=== PATIENT | female | born 1945 | race Caucasian/White ===

== ENCOUNTER → 2016-09-05 | Outpatient (CLI) | payer MEDICARE, OTHER ==
--- OUTSIDE RECORDS SUMMARY | 2016-09-05 08:41 | XMS REPORT | Continuity of Care Document ---
Author Author [facility] Organization [facility] Address Unknown Phone Unavailable Allergies Active Description Code Type Severity Reaction Onset Reported/Identified Relationship to Patient Clinical Status Yes No Known Allergies No Known Allergies Drug Allergy Unknown N/A 01/29/2013 Yes No Known Drug Allergies [id number] Drug Allergy Unknown N/ A 02/25/2016 Medications Problems Date Dx Coded Attending Type Code Diagnosis Diagnosed By 09/26/2014 Ot 401.9 09/26/2014 Ot V76.12 11/07/2014 JENISE SCHAEFFER DOLINE S Ot 272.4 11/07/2014 ELIER SCHAEFFER DOQUELINE S Ot 414.01 11/07/2014 ELIER SCHAEFFER DOQUELINE S Ot 733.90 11/07/2014 CHELSEANDRADHA DO LUIS S Ot 780.79 11/07/2014 CHELSEANDRADHA DO LUIS S Ot V70.0 11/07/2014 LAURY MASSEY LUIS S Ot 401.9 11/07/2014 CHELSEANDRADHA DOELIERLUIS S Ot 414.00 11/07/2014 CHELSEANDRADHA DO LUIS S Ot 780.2 11/07/2014 Ot 401.9 11/07/2014 Ot V76.12 12/12/2014 LAURY MASSEY LUIS S Ot 241.1 12/12/2014 ELIER SCHAEFFER DOQUELINE S Ot 276.8 12/15/2014 LAURY MASSEY LUIS S Ot 241.1 12/22/2014 JOE BINGHAM LENS CUTTER Ot 241.1 12/25/2014 JOE BINGHAM LENS CUTTER Ot 241.1 07/24/2015 ELIER SCHAEFFER DOQUELINE S Ot E04.1 07/29/2015 ELIER SCHAEFFER DOQUELINE S Ot E04.1 02/25/2016 JENISE SCHAEFFER DOLINE S Ot Z12.31 ENCNTR SCREEN MAMMOGRAM FOR MALIGNANT NE 02/25/2016 ORENDER DO, LUIS S Ot E78.2 MIXED HYPERLIPIDEMIA 02/25/2016 ORENDER DO, LUIS S Ot Z12.31 ENCNTR SCREEN MAMMOGRAM FOR MALIGNANT NE 02/25/2016 ORENDER DO, LUIS S Ot E78.2 MIXED HYPERLIPIDEMIA 02/25/2016 ORENDER DO, LUIS S Ot Z12.31 ENCNTR SCREEN MAMMOGRAM FOR MALIGNANT NE 02/25/2016 ORENDER DO, LUIS S Ot E78.2 MIXED HYPERLIPIDEMIA 02/25/2016 ORENDER DO, LUIS S Ot Z12.31 ENCNTR SCREEN MAMMOGRAM FOR MALIGNANT NE 02/26/2016 ORENDER DO, LUIS S Ot E78.2 MIXED HYPERLIPIDEMIA 02/26/2016 ORENDER DO, LUIS S Ot Z12.31 ENCNTR SCREEN MAMMOGRAM FOR MALIGNANT NE 02/26/2016 ORENDER DO, LUIS S Ot E78.5 HYPERLIPIDEMIA, UNSPECIFIED 02/26/2016 ORENDER DO, LUIS S Ot I25.10 ATHSCL HEART DISEASE OF [place] CORONARY 02/26/2016 ORENDER DO, LUIS S Ot M50.30 OTHER CERVICAL DISC DEGENERATION, UNSP C 02/26/2016 ORENDER DO, LUIS S Ot R51 HEADACHE 02/26/2016 ORENDER DO, LUIS S Ot R53.83 OTHER FATIGUE 02/26/2016 ORENDER DO, LUIS S Ot R55 SYNCOPE AND COLLAPSE 02/26/2016 ORENDER DO, LUIS S Ot Z12.31 ENCNTR SCREEN MAMMOGRAM FOR MALIGNANT NE 03/22/2016 ORENDER DO, LUIS S Ot E78.5 HYPERLIPIDEMIA, UNSPECIFIED 03/22/2016 ORENDER DO, LUIS S Ot I25.10 ATHSCL HEART DISEASE OF [place] CORONARY 03/22/2016 ORENDER DO, LUIS S Ot M50.30 OTHER CERVICAL DISC DEGENERATION, UNSP C 03/22/2016 ORENDER DO, LUIS S Ot R51 HEADACHE 03/22/2016 ORENDER DO, LUIS S Ot R53.83 OTHER FATIGUE 03/22/2016 ORENDER DO, LUIS S Ot R55 SYNCOPE AND COLLAPSE 03/22/2016 ORENDER DO, LUIS S Ot Z12.31 ENCNTR SCREEN MAMMOGRAM FOR MALIGNANT NE 04/04/2016 ORENDER DO, LUIS S Ot E78.5 HYPERLIPIDEMIA, UNSPECIFIED 04/04/2016 ORENDER DO, LUIS S Ot I25.10 ATHSCL HEART DISEASE OF [place] CORONARY 04/04/2016 ORENDER DO, LUIS S Ot M50.30 OTHER CERVICAL DISC DEGENERATION, UNSP C 04/04/2016 ORENDER DO, LUIS S Ot R51 HEADACHE 04/04/2016 ORENDER DO, LUIS S Ot R53.83 OTHER FATIGUE 04/04/2016 ORENDER DO, LUIS S Ot R55 SYNCOPE AND COLLAPSE 04/04/2016 ORENDER DO, LUIS S Ot Z12.31 ENCNTR SCREEN MAMMOGRAM FOR MALIGNANT NE 04/04/2016 ORENDER DO, LUIS S Ot E78.5 HYPERLIPIDEMIA, UNSPECIFIED 04/04/2016 ORENDER DO, LUIS S Ot I25.10 ATHSCL HEART DISEASE OF [place] CORONARY 04/04/2016 ORENDER DO, LUIS S Ot M50.30 OTHER CERVICAL DISC DEGENERATION, UNSP C 04/04/2016 ORENDER DO, LUIS S Ot R51 HEADACHE 04/04/2016 ORENDER DO, LUIS S Ot R53.83 OTHER FATIGUE 04/04/2016 ORENDER DO, LUIS S Ot R55 SYNCOPE AND COLLAPSE 04/04/2016 ORENDER DO, LUIS S Ot Z12.31 ENCNTR SCREEN MAMMOGRAM FOR MALIGNANT NE 04/28/2016 LENORA SOLOMON PRIVACY DIRECTOR Ot R10.11 RIGHT UPPER QUADRANT PAIN 04/28/2016 LENORA SOLOMON PRIVACY DIRECTOR Ot R11.0 NAUSEA 04/28/2016 LENORA SOLOMON PRIVACY DIRECTOR Ot R19.7 DIARRHEA, UNSPECIFIED 05/05/2016 LENORA SOLOMON PRIVACY DIRECTOR Ot R10.11 RIGHT UPPER QUADRANT PAIN 05/05/2016 LENORA SOLOMON PRIVACY DIRECTOR Ot R19.5 OTHER FECAL ABNORMALITIES 05/05/2016 LENORA SOLOMON PRIVACY DIRECTOR Ot R10.11 RIGHT UPPER QUADRANT PAIN 05/05/2016 LENORA SOLOMON PRIVACY DIRECTOR Ot R19.5 OTHER FECAL ABNORMALITIES 05/17/2016 LENORA SOLOMON PRIVACY DIRECTOR Ot R10.11 RIGHT UPPER QUADRANT PAIN 05/17/2016 LENORA SOLOMON PRIVACY DIRECTOR Ot R11.0 NAUSEA 05/17/2016 LENORA SOLOMON PRIVACY DIRECTOR Ot R19.7 DIARRHEA, UNSPECIFIED 05/19/2016 LUIS SCHAEFFER DO Ot R19.7 DIARRHEA, UNSPECIFIED 05/24/2016 LENORA SOLOMON PRIVACY DIRECTOR Ot R10.11 RIGHT UPPER QUADRANT PAIN 05/24/2016 LENORA SOLOMON PRIVACY DIRECTOR Ot R19.5 OTHER FECAL ABNORMALITIES 06/08/2016 LUIS SCHAEFFER DO S Ot R19.7 DIARRHEA, UNSPECIFIED Procedures Results Test Result Range Complete blood count (CBC) with automated white blood cell (WBC) differential - 02/25/16 09:30 Blood leukocytes automated count (number/volume) 7.6 10*3/ uL 4.3-11.0 Blood erythrocytes automated count (number/volume) 4.95 10*6 /uL 4.35-5.85 Venous blood hemoglobin measurement (mass/volume) 15.2 g/dL 11.5-16.0 Blood hematocrit (volume fraction) 45 % 35-52 Automated erythrocyte mean corpuscular volume 90 [foz_us] 80-99 Automated erythrocyte mean corpuscular hemoglobin (mass per erythrocyte) 31 pg 25-34 Automated erythrocyte mean corpuscular hemoglobin concentration measurement ( mass/volume) 34 g/dL 32-36 Automated erythrocyte distribution width ratio 13.4 % 10.0-14.5 Automated blood platelet count (count/volume) 278 10*3/uL 130-400 Automated blood platelet mean volume measurement 9.5 [foz_us ] 7.4-10.4 Automated blood neutrophils/100 leukocytes 65 % 42-75 Automated blood lymphocytes/100 leukocytes 23 % 12-44 Blood monocytes/100 leukocytes 10 % 0-12 Automated blood eosinophils/100 leukocytes 2 % 0-10 Automated blood basophils/100 leukocytes 0 % 0-10 Blood neutrophils automated count (number/volume) 5.0 10*3 1.8-7.8 Blood lymphocytes automated count (number/volume) 1.8 10*3 1.0-4.0 Blood monocytes automated count (number/volume) 0.7 10*3 0.0-1.0 Automated eosinophil count 0.1 10*3/uL 0.0-0.3 Automated blood basophil count (count/volume) 0.0 10*3/uL 0.0-0.1 Comprehensive metabolic panel - 02/25/16 09:30 Serum or plasma sodium measurement (moles/volume) 140 mmol/ L 135-145 Serum or plasma potassium measurement (moles/volume) 4.9 mmol/L 3.6-5.0 Serum or plasma chloride measurement (moles/volume) 103 mmol /L 98-107 Carbon dioxide 27 mmol/L 21-32 Serum or plasma anion gap determination (moles/volume) 10 mmol/L 5-14 Serum or plasma urea nitrogen measurement (mass/volume) 23 mg/dL 7-18 Serum or plasma creatinine measurement (mass/volume) 0.77 mg /dL 0.60-1.30 Serum or plasma urea nitrogen/creatinine mass ratio 30 NRG Serum or plasma creatinine measurement with calculation of estimated glomerular filtration rate > NRG Serum or plasma glucose measurement (mass/volume) 90 mg/dL 70-105 Serum or plasma calcium measurement (mass/volume) 9.9 mg/dL 8.5-10.1 Serum or plasma total bilirubin measurement (mass/volume) 0.4 mg/dL 0.1-1.0 Serum or plasma alkaline phosphatase measurement (enzymatic activity/volume) 87 U/L 40-136 Serum or plasma aspartate aminotransferase measurement (enzymatic activity/ volume) 31 U/L 5-34 Serum or plasma alanine aminotransferase measurement (enzymatic activity/volume ) 27 U/L 0-55 Serum or plasma protein measurement (mass/volume) 7.5 g/dL 6.4-8.2 Serum or plasma albumin measurement (mass/volume) 4.5 g/dL 3.2-4.5 Erythrocyte sedimentation rate by westergren method - 02/25/16 09:30 Erythrocyte sedimentation rate by westergren method 8 mm 0-30 Lipid 1996 panel - 02/25/16 09:30 Serum or plasma triglyceride measurement (mass/volume) 190 mg/dL <150 Serum or plasma cholesterol measurement (mass/volume) 160 mg /dL < 200 Serum or plasma cholesterol in HDL measurement (mass/volume) 51 mg/dL 40-60 Cholesterol in LDL [mass/volume] in serum or plasma by direct assay 86 mg/dL 1-129 Serum or plasma cholesterol in VLDL measurement (mass/volume) 38 mg/dL 5-40 Hemoglobin A1c - 02/25/16 09:30 Hemoglobin A1c 5.3 % 4.5-6.2 THYROID STIMULATING HORMONE - 02/25/16 09:30 THYROID STIMULATING HORMONE 1.44 u[iU]/mL 0.35-4.94 Serum or plasma thyroxine (T4) free measurement (mass/volume) - 02/25/16 09:30 Serum or plasma thyroxine (T4) free measurement (mass/volume) 0.79 ng/dL 0.70-1.48 METABOLIC PANEL, BASIC - 03/29/16 13:10 POTASSIUM 3.7 mmol/L 3.5-5.3 EST GFR (MDRD) > 60 mL/min > 59 ANION GAP 6 mmol/L 5-15 EST CrCl (CG) > 60 mL/min > 59 GLUCOSE 83 mg/dL 70-99 CALCIUM 9.5 mg/dL 8.5-10.1 BLOOD UREA NITROGEN 16 mg/dL 7-20 CREATININE 0.8 mg/dL 0.6-1.0 SODIUM 140 mmol/L 135-148 CHLORIDE 103 mmol/L 98-110 CARBON DIOXIDE 31 mmol/L 21-32 MAGNESIUM - 03/29/16 13:10 MAGNESIUM 2.0 mg/dL 1.8-2.4 PROTHROMBIN TIME WITH INR - 03/29/16 13:10 INTERNATIONAL NORMAL RATIO 1.0 0.9-1.1 PROTHROMBIN TIME 11.5 sec 10.0-12.9 CBC W/DIFF - 03/29/16 13:10 EOSINOPHIL # 0.1 k/cumm 0.1-0.5 EOSINOPHIL % 1 % 2-4 GRANULOCYTE # 5.1 k/cumm 2.0-9.0 GRANULOCYTE % 63 % 50-75 LYMPHOCYTE # 2.1 k/cumm 1.0-4.0 LYMPHOCYTE % 26 % 20-30 MEAN CELL HGB 31.0 pg 27.0-33.0 MEAN CELL HGB CONCENTRATION 34.4 g/dL 32.0-37.0 MEAN CELL VOLUME 90.1 fl 80.0-100.0 MONOCYTE # 0.8 k/cumm 0.1-1.0 MONOCYTE % 10 % 4-6 RED BLOOD CELL 4.84 m/cumm 4.00-6.00 RED CELL DISTRIBUTION WIDTH 13.2 % 11.0- 15.6 WHITE BLOOD CELL 8.1 k/cumm 5.0-10.0 HEMOGLOBIN 15.0 gm/dL 12.0-16.0 HEMATOCRIT 43.6 % 37.0-47.0 PLATELET COUNT 282 k/cumm 150-450 LIPID PANEL - 03/30/16 05:24 CHOLESTEROL/HDL RATIO 2.5 < 5.0 LDL CHOLESTEROL 50 mg/dL < 100 VLDL CHOLESTEROL 16 mg/dL < 30 TRIGLYCERIDES 82 mg/dL < 150 CHOLESTEROL 110 mg/dL < 200 HDL CHOLESTEROL 44 mg/dL > 39 METABOLIC PANEL, BASIC - 03/30/16 05:24 POTASSIUM 3.7 mmol/L 3.5-5.3 EST GFR (MDRD) > 60 mL/min > 59 ANION GAP 7 mmol/L 5-15 EST CrCl (CG) > 60 mL/min > 59 GLUCOSE 98 mg/dL 70-99 CALCIUM 8.7 mg/dL 8.5-10.1 BLOOD UREA NITROGEN 14 mg/dL 7-20 CREATININE 0.8 mg/dL 0.6-1.0 SODIUM 141 mmol/L 135-148 CHLORIDE 105 mmol/L 98-110 CARBON DIOXIDE 29 mmol/L 21-32 CK MB - 03/30/16 05:24 CK MB 3.8 ng/mL < 4.0 TROPONIN I - 03/30/16 05:24 TROPONIN I 0.47 ng/mL < 0.07 CBC - 03/30/16 05:25 MEAN CELL HGB 30.7 pg 27.0-33.0 MEAN CELL HGB CONCENTRATION 33.4 g/dL 32.0-37.0 MEAN CELL VOLUME 91.8 fl 80.0-100.0 RED BLOOD CELL 4.40 m/cumm 4.00-6.00 RED CELL DISTRIBUTION WIDTH 13.2 % 11.0- 15.6 WHITE BLOOD CELL 6.8 k/cumm 5.0-10.0 HEMOGLOBIN 13.5 gm/dL 12.0-16.0 HEMATOCRIT 40.4 % 37.0-47.0 PLATELET COUNT 233 k/cumm 150-450 Serum or plasma amylase measurement (enzymatic activity/volume) - 05/04/16 14: 11 Serum or plasma amylase measurement (enzymatic activity/volume) 41 U/L 25-125 Lipase - 05/04/16 14:11 Lipase 6 U/L 8-78 Encounters ACCT No. Visit Date/Time Discharge Status Pt. Type Provider Facility Loc./Unit Complaint [id number] 11/20/2014 10:38:00 2014 23:59:59 CLS Outpatient JOE BINGHAM [facility] CARD [id number] 11/12/2014 12:37:00 2014 23:59:59 CLS Outpatient ORENDER DO, LUIS S [facility] RAD [id number] 11/07/2014 13:22:00 2014 23:59:59 CLS Outpatient ORENDER DO, LUIS S [facility] LAB [id number] 01/27/2014 06:37:00 2013 23:59:59 CLS Outpatient ORENDER DO, LUIS S [facility] LAB [id number] 02/16/2013 07:55:00 2012 23:59:59 CLS Outpatient ORENDER DO, LUIS S [facility] LAB [id number] 05/18/2016 12:12:00 ACT Outpatient ORENDER DO, LUIS S [facility] LAB DIARRHEA [id number] 05/04/2016 14:06:00 ACT Outpatient LENORA SOLOMON Jeaneth PRIVACY DIRECTOR [facility] LAB RUQ PAIN,CHANGE IN STOOL [id number] 04/27/2016 09:13:00 ACT Outpatient LENORA SOLOMON Jeaneth PRIVACY DIRECTOR [facility] RAD GENERALZAED ABD PAIN,RUQ PAIN,DIARRHEA [id number] 02/25/2016 08:54:00 ACT Outpatient ORENDER DO, LUIS S [facility] SYNCOPE,WEAKNESS,CAD,FATIGUE,HLP,SCREENING [id number] 07/10/2015 14:22:00 ACT Outpatient ORENDER DO, LUIS S [facility] RAD [id number] 07/06/2015 08:14:00 ACT Outpatient ORENDER DO, LUIS S [facility] LAB [id number] 09/05/2014 07:07:00 Document Registration
[2016-09-05 09:04] LABS: BASOPHILS % (AUTO) 0 % (0-10); EOSINOPHILS # (AUTO) 0.1 10^3/uL (0.0-0.3); EOSINOPHILS % (AUTO) 1 % (0-10); LYMPHOCYTES # (AUTO) 1.4 X 10^3 (1.0-4.0); LYMPHOCYTES % (AUTO) 21 % (12-44); MEAN CORPUSCULAR HEMOGLOBIN 30 PG (25-34); MEAN CORPUSCULAR HGB CONC 34 G/DL (32-36); MEAN CORPUSCULAR VOLUME 90 FL (80-99); MEAN PLATELET VOLUME 8.9 FL (7.4-10.4); MONOCYTES # (AUTO) 0.7 X 10^3 (0.0-1.0); MONOCYTES % (AUTO) 10 % (0-12); NEUTROPHILS # (AUTO) 4.6 X 10^3 (1.8-7.8); NEUTROPHILS % (AUTO) 67 % (42-75); PLATELET COUNT 282 10^3/uL (130-400); RED BLOOD COUNT 5.17 10^6/uL (4.35-5.85); RED CELL DISTRIBUTION WIDTH 13.6 % (10.0-14.5); WHITE BLOOD COUNT 6.8 10^3/uL (4.3-11.0)
[2016-09-05 09:21] LABS: ALANINE AMINOTRANSFERASE 23 U/L (0-55); ALBUMIN 4.2 G/DL (3.2-4.5); ANION GAP 10 MMOL/L (5-14); ASPARTATE AMINO TRANSFERASE 27 U/L (5-34); BILIRUBIN,TOTAL 0.4 MG/DL (0.1-1.0); BLOOD UREA NITROGEN 20 MG/DL (7-18); BUN/CREATININE RATIO 26; CALCIUM 9.3 MG/DL (8.5-10.1); CARBON DIOXIDE 26 MMOL/L (21-32); CHLORIDE 106 MMOL/L (98-107); CHOLESTEROL 152 MG/DL (< 200); CREATININE SERUM 0.76 MG/DL (0.60-1.30); DIRECT LDL 79 MG/DL (1-129); GFR ESTIMATED > 60; GLUCOSE 82 MG/DL (70-105); SODIUM 142 MMOL/L (135-145); TOTAL PROTEIN 7.2 G/DL (6.4-8.2); TRIGLYCERIDES 123 MG/DL (<150); VLDL CHOLESTEROL 25 MG/DL (5-40)
[2016-09-05 09:42] LABS: THYROID STIMULATING HORMONE 0.88 UIU/ML (0.35-4.94)
== END ==
LOC: LAB 08:35
PROVIDERS: ATTEND Nurse Practitioner
DX: I10 Essential (primary) hypertension (principal); R73.01 Impaired fasting glucose; E55.9 Vitamin D deficiency, unspecified; E78.2 Mixed hyperlipidemia
CPT/HCPCS: 36415; 80053; 80061; 82306; 83036; 84439; 84443; 85025

== ENCOUNTER → 2017-04-19 | Outpatient (CLI) | payer MEDICARE, OTHER ==
--- NOTE | 2017-04-20 19:58 | Diagnostic Imaging Report ---
Bilateral screening mammogram 2D views with tomosynthesis. The current study was also evaluated with a Computer Aided Detection (CAD) system. INDICATION: Screening. No current complaints stated on the questionnaire. COMPARISON: 02/25/16 FINDINGS: The breasts are composed of scattered fibroglandular densities. There are scattered benign-appearing calcifications. Allowing for technique and positional differences, no suspicious change is seen. IMPRESSION: No significant change. ACR BI-RADS Category 2: Benign findings. Result letter will be mailed to the patient. Note: At least 10% of breast cancer is not imaged by mammography. Dictated by: Dictated on workstation # [id number]
== END ==
LOC: RAD 10:59
PROVIDERS: ATTEND Family Medicine
DX: Z12.31 Encounter for screening mammogram for malignant neoplasm of breast (principal)
CPT/HCPCS: 77067

== ENCOUNTER → 2017-06-07 | Outpatient (CLI) | payer MEDICARE, OTHER ==
[2017-06-07 08:53] LABS: BASOPHILS % (AUTO) 0 % (0-10); EOSINOPHILS # (AUTO) 0.1 10^3/uL (0.0-0.3); EOSINOPHILS % (AUTO) 2 % (0-10); LYMPHOCYTES # (AUTO) 1.2 X 10^3 (1.0-4.0); LYMPHOCYTES % (AUTO) 16 % (12-44); MEAN CORPUSCULAR HEMOGLOBIN 31 PG (25-34); MEAN CORPUSCULAR HGB CONC 34 G/DL (32-36); MEAN CORPUSCULAR VOLUME 91 FL (80-99); MEAN PLATELET VOLUME 9.3 FL (7.4-10.4); MONOCYTES # (AUTO) 0.8 X 10^3 (0.0-1.0); MONOCYTES % (AUTO) 11 % (0-12); NEUTROPHILS # (AUTO) 5.3 X 10^3 (1.8-7.8); NEUTROPHILS % (AUTO) 72 % (42-75); PLATELET COUNT 294 10^3/uL (130-400); RED BLOOD COUNT 4.94 10^6/uL (4.35-5.85); RED CELL DISTRIBUTION WIDTH 13.2 % (10.0-14.5); WHITE BLOOD COUNT 7.4 10^3/uL (4.3-11.0)
[2017-06-07 09:12] LABS: ALANINE AMINOTRANSFERASE 23 U/L (0-55); ALBUMIN 4.2 GM/DL (3.2-4.5); ANION GAP 8 MMOL/L (5-14); ASPARTATE AMINO TRANSFERASE 23 U/L (5-34); BILIRUBIN,TOTAL 0.6 MG/DL (0.1-1.0); BLOOD UREA NITROGEN 21 MG/DL (7-18); BUN/CREATININE RATIO 27; CALCIUM 9.4 MG/DL (8.5-10.1); CARBON DIOXIDE 29 MMOL/L (21-32); CHLORIDE 103 MMOL/L (98-107); CHOLESTEROL 144 MG/DL (< 200); CREATININE SERUM 0.79 MG/DL (0.60-1.30); DIRECT LDL 67 MG/DL (1-129); GFR ESTIMATED > 60; GLUCOSE 86 MG/DL (70-105); SODIUM 140 MMOL/L (135-145); TOTAL PROTEIN 7.5 GM/DL (6.4-8.2); TRIGLYCERIDES 67 MG/DL (<150); VLDL CHOLESTEROL 13 MG/DL (5-40)
[2017-06-07 09:32] LABS: THYROID STIMULATING HORMONE 0.86 UIU/ML (0.35-4.94)
--- NOTE | 2017-06-07 15:49 | Diagnostic Imaging Report ---
PROCEDURE: US Thyroid. TECHNIQUE: Multiple real-time grayscale images were obtained of the thyroid in various projections. INDICATION: Thyroid nodules. FINDINGS: The previous thyroid ultrasound exam performed on 07/10/2015 noted multiple nodules in both lobes of the thyroid. On this study, the nodules are again identified and do not seem to have changed adversely. There has been no increase in size of any of the nodules and one of the nodules in the left upper lobe has decreased in size. The thyroid gland itself is not enlarged with the right lobe measuring 3.8 x 1.7 x 1.5 cm and the left lobe is estimated to be 3.4 x 1.2 x 1.1 cm(normal gland size 4-5 x 2 x 2 cm or less). IMPRESSION: 1. There are multiple nodules within both lobes of the thyroid. These nodules have not changed adversely since the prior exam and consequently they are most likely benign. 2. The thyroid gland is not enlarged. Dictated by: Dictated on workstation # [id number]
[2017-06-08 07:25] LABS: VITAMIN D 25-HYDROXY (TOTAL) 72 ng/mL (30-100)
== END ==
LOC: RAD 05-31 10:58
PROVIDERS: ATTEND Family Medicine
DX: E04.2 Nontoxic multinodular goiter (principal); R53.82 Chronic fatigue, unspecified; E55.9 Vitamin D deficiency, unspecified; I25.10 Atherosclerotic heart disease of native coronary artery without angina pectoris
CPT/HCPCS: 36415; 76536; 80053; 80061; 82306; 84443; 85025

== ENCOUNTER 2017-06-30 10:21 | Outpatient (RCR) | payer MEDICARE, OTHER | END 2017-07-25 16:12 | disposition home or self-care (01) | PROVIDERS: ATTEND Family Medicine | DX: M51.16 Intervertebral disc disorders with radiculopathy, lumbar region (principal) ==

== ENCOUNTER 2018-01-15 06:09 | Outpatient (CLI) | payer MEDICARE, OTHER ==
[~2018-01-15] VITALS: Ht 165.1 cm; Wt 72.6 kg
[2018-01-15] MEDS ORDERED: FLUO40CA12 PO (13:49)
[2018-01-15] MEDS ORDERED: POTA8TAB6 PO (13:49)
[2018-01-15] MEDS ORDERED: VALS1TAB80 PO (13:49)
[2018-01-15] MEDS ORDERED: MELA1TAB20 PO (13:49)
[2018-01-15] MEDS ORDERED: CHOL5000 PO (13:49)
[2018-01-15] MEDS ORDERED: CLOP75TA69 PO (13:49)
[2018-01-15] MEDS ORDERED: FAMO40TA6 PO (13:49)
[2018-01-15] MEDS ORDERED: TRAM50TA2 PO (13:49)
[2018-01-15] MEDS ORDERED: ASPI-586 PO (13:49)
[2018-01-15] MEDS ORDERED: ATOR10TA66 PO (13:49)
[2018-01-19] MEDS ORDERED: PANT40TA3 PO (09:33)
== END 2018-01-15 14:54 ==
LOC: PREOP 06:09
PROVIDERS: ATTEND Internal Medicine
DX: Z01.818 Encounter for other preprocedural examination (principal); Z12.11 Encounter for screening for malignant neoplasm of colon; K21.9 Gastro-esophageal reflux disease without esophagitis

== ENCOUNTER 2018-01-19 07:14 | Day surgery (SDC) | payer MEDICARE, OTHER ==
--- NOTE | 2018-01-12 12:34 | HISTORY AND PHYSICAL ---
DATE OF SERVICE: PANENDOSCOPY HISTORY AND PHYSICAL HISTORY OF PRESENT ILLNESS: The patient is a 72-year-old white female referred by Dr. Moctezuma for screening colonoscopy. I performed colonoscopy on her a little over 10 years ago, at which time, she had one early hyperplastic polyp removed from the distal ascending colon with no other significant abnormalities. At that time, she was on aspirin and Plavix, I believe for some TIA related symptoms and was having reflux symptoms. She had what appeared to be aspirin related gastropathy on EGD evaluation. Aspirin was discontinued and Plavix was continued. She did well following that for quite some time. Two years ago, she reported stent placement, apparently a coronary, single, likely drug-eluting stent, although she was not sure. She is back on aspirin and Plavix and prophylactic famotidine 40 mg daily. She has had some recurrence of epigastric discomfort and reflux symptoms. She is taking antacids several times per week for breakthrough symptoms. She denies any weight change, bowel habit change, melena, bright red blood per rectum or dysphagia. She denies any problems with sore throat or chronic coughing issues. She has had no chest symptoms. Denies orthopnea, PND, pedal edema, chest pain, or dyspnea on exertion. PAST SURGICAL HISTORY: Significant for a C6-C7 fusion little over 10 years ago for which she required anterior and posterior repair. She had gastric stapling many years ago. Two C-sections, a surgery for bowel obstruction in 1995 and an appendectomy following her second for acute appendicitis. PAST MEDICAL HISTORY: Significant for hypertension, hyperlipidemia and coronary artery disease. MEDICATIONS ON ADMISSION: Include valsartan/HCT 320/25, fluoxetine 40 mg daily, potassium 8 mEq daily, Plavix 75 mg daily, 81 mg aspirin daily, atorvastatin 10 mg at bedtime, melatonin 10 mg at bedtime and vitamin D3 5000 units daily. She also takes tramadol 50 mg usually more often than q. 12 hours p.r.n. one in the morning, one in the evening. SOCIAL HISTORY: She is retired, with no past smoking history and no significant alcohol intake. FAMILY HISTORY: Mother had a history of diverticulitis, in her 90s. Father of natural causes in his 90s as well. PHYSICAL EXAMINATION: GENERAL: Reveals a well-appearing white female in no acute distress. VITAL SIGNS: Her weight is down significantly to 161 compared to her office weight 10 years ago at 195.8. Blood pressure is 110/60. HEENT: Unremarkable. She has a Mallampati class 3 oropharyngeal configuration. NECK: Revealed no JVD, adenopathy, or bruits. CHEST: Clear. CARDIOVASCULAR: Regular rate and rhythm without murmur, S3 or S4. ABDOMEN: Reveals well-healed midline abdominal scars with significant firmness over the scar. No evidence for keloids are noted. No mass or organomegaly is noted. The abdomen is flat, bowel sounds are positive and there is no pain to palpation. No bruits are noted. EXTREMITIES: Reveal no cyanosis, clubbing, or edema. ASSESSMENT: The patient was set up for diagnostic EGD due to recurrence of reflux symptoms and the need for aspirin and Plavix with significant increased risk for upper GI tract ulceration as well as a screening colonoscopy deemed to be of average risk. The patient did remember waking up and having some discomfort on a procedure 10 years ago, so we will consult anesthesia for Diprivan administration. Prep instructions with Suprep kit were given and a split dose the day before and questions were answered. The patient is to discontinue aspirin. She has to hold aspirin and Plavix after this Monday's dose and she is scheduled for the subsequent Monday01/19/2018. I thank you for the referral of this pleasant lady. Job ID: [id number] DocumentID: [id number] Dictated Date: 01/10/2018 18:32:04 Torch Operator Date: 01/10/2018 19:22:57 Dictated By: REX BECERRA MD
[~2018-01-19] VITALS: Ht 165.1 cm; Wt 72.6 kg
[~2018-01-19 07:14] MED LIST: ASPI-586 PO; ATOR10TA66 PO; CHOL5000 PO; CLOP75TA69 PO; FAMO40TA6 PO; FLUO40CA12 PO; MELA1TAB20 PO; POTA8TAB6 PO; TRAM50TA2 PO; VALS1TAB80 PO
--- OUTSIDE RECORDS SUMMARY | 2018-01-19 07:21 | XMS REPORT ---
Author Author CHARLENE ETIENNE Organization [facility] Address [address] [place] [address] Care Team Providers Care Fuel Management Handler Name Role Phone CHARLENE ETIENNE Unavailable PROBLEMS Unknown Problems ALLERGIES No Known Allergies ENCOUNTERS Encounter Location Date Diagnosis [facility] [address] [facility] [id number] [phone] Jul, Influenza-like illness R69 IMMUNIZATIONS No Known Immunizations SOCIAL HISTORY Never Assessed REASON FOR VISIT Cough, headache, body ache, fever JStrasserRN PLAN OF CARE Activity Details Follow Up prn Reason: VITAL SIGNS Weight 158.6 lbs 2017-07-20 Temperature 98.5 degrees Fahrenheit 2017-07-20 Heart Rate 80 bpm 2017-07-20 Respiratory Rate 20 2017-07-20 Blood pressure systolic 92 mmHg 2017-07-20 Blood pressure diastolic 60 mmHg 2017-07-20 MEDICATIONS Medication Instructions Dosage Frequency Start Date End Date Duration Status Tamiflu 75 MG Orally Twice a day 1 capsule 12h Jul, 5 day(s) Active RESULTS No Results PROCEDURES Procedure Date Ordered Result Body Site [facility] VISIT ESTABLISHED PATIENT Jul 20, 2017 INSTRUCTIONS MEDICATIONS ADMINISTERED No Known Medications
--- OUTSIDE RECORDS SUMMARY | 2018-01-19 07:22 | XMS REPORT | Continuity of Care Document ---
Author Author [facility] Organization [facility] Address Unknown Phone Unavailable Allergies Active Description Code Type Severity Reaction Onset Reported/Identified Relationship to Patient Clinical Status Yes No Known Allergies No Known Allergies Drug Allergy Unknown N/A 2012 Yes No Known Drug Allergies [id number] Drug Allergy Unknown N/A 02/25/2016 Medications There is no data. Problems Date Dx Coded Attending Type Code Diagnosis Diagnosed By 09/26/2014 Ot 401.9 09/26/2014 Ot V76.12 11/07/2014 JENISE MOCTEZUMA DOLINE S Ot 272.4 11/07/2014 ELIER MOCTEZUMA DOQUELINE S Ot 414.01 11/07/2014 CHELSEANDELIER GARCIA DOQUELINE S Ot 733.90 11/07/2014 CHELSEANDRADHA DO, AMPARO S Ot 780.79 11/07/2014 CHELSEANDRADHA DO, AMPARO S Ot V70.0 11/07/2014 CHELSEANDRADHA DO AMPARO S Ot 401.9 11/07/2014 CHELSEANDRADHA DO, AMPARO S Ot 414.00 11/07/2014 CHELSEANDRADHA DO, AMPARO S Ot 780.2 11/07/2014 Ot 401.9 11/07/2014 Ot V76.12 12/12/2014 CHELSEANDRADHA DOELIERAMPARO S Ot 241.1 12/12/2014 CHELSEANDRADHA DOELIERAMPARO S Ot 276.8 12/15/2014 CHELSEANDRADHA DO, AMPARO S Ot 241.1 12/22/2014 JOE BINGHAM QUALITY CONTROL Ot 241.1 12/25/2014 JOE BINGHAM QUALITY CONTROL Ot 241.1 07/24/2015 ELIER MOCTEZUMA DOQUELINE S Ot E04.1 07/29/2015 CHELSEANDELIER GARCIA DOQUELINE S Ot E04.1 02/25/2016 ELIER MOCTEZUMA DOQUELINE S Ot Z12.31 ENCNTR SCREEN MAMMOGRAM FOR MALIGNANT NE 02/25/2016 ORENDER DO, AMPARO S Ot E78.2 MIXED HYPERLIPIDEMIA 02/25/2016 ORENDER DO, AMPARO S Ot Z12.31 ENCNTR SCREEN MAMMOGRAM FOR MALIGNANT NE 02/25/2016 ORENDER DO, AMPARO S Ot E78.2 MIXED HYPERLIPIDEMIA 02/25/2016 ORENDER DO, AMPARO S Ot Z12.31 ENCNTR SCREEN MAMMOGRAM FOR MALIGNANT NE 02/25/2016 ORENDER DO, AMPARO S Ot E78.2 MIXED HYPERLIPIDEMIA 02/25/2016 ORENDER DO, AMPARO S Ot Z12.31 ENCNTR SCREEN MAMMOGRAM FOR MALIGNANT NE 02/26/2016 ORENDER DO, AMPARO S Ot E78.2 MIXED HYPERLIPIDEMIA 02/26/2016 ORENDER DO, AMPARO S Ot Z12.31 ENCNTR SCREEN MAMMOGRAM FOR MALIGNANT NE 02/26/2016 ORENDER DO, AMPARO S Ot E78.5 HYPERLIPIDEMIA, UNSPECIFIED 02/26/2016 ORENDER DO, AMPARO S Ot I25.10 ATHSCL HEART DISEASE OF [place] CORONARY 02/26/2016 ORENDER DO, AMPARO S Ot M50.30 OTHER CERVICAL DISC DEGENERATION, UNSP C 02/26/2016 ORENDER DO, AMPARO S Ot R51 HEADACHE 02/26/2016 ORENDER DO, AMPARO S Ot R53.83 OTHER FATIGUE 02/26/2016 ORENDER DO, AMPARO S Ot R55 SYNCOPE AND COLLAPSE 02/26/2016 ORENDER DO, AMPARO S Ot Z12.31 ENCNTR SCREEN MAMMOGRAM FOR MALIGNANT NE 03/22/2016 ORENDER DO, AMPARO S Ot E78.5 HYPERLIPIDEMIA, UNSPECIFIED 03/22/2016 ORENDER DO, AMPARO S Ot I25.10 ATHSCL HEART DISEASE OF [place] CORONARY 03/22/2016 ORENDER DO, AMPARO S Ot M50.30 OTHER CERVICAL DISC DEGENERATION, UNSP C 03/22/2016 ORENDER DO, AMPARO S Ot R51 HEADACHE 03/22/2016 ORENDER DO, AMPARO S Ot R53.83 OTHER FATIGUE 03/22/2016 ORENDER DO, AMPARO S Ot R55 SYNCOPE AND COLLAPSE 03/22/2016 ORENDER DO, AMPARO S Ot Z12.31 ENCNTR SCREEN MAMMOGRAM FOR MALIGNANT NE 04/04/2016 ORENDER DO, AMPARO S Ot E78.5 HYPERLIPIDEMIA, UNSPECIFIED 04/04/2016 ORENDER DO, AMPARO S Ot I25.10 ATHSCL HEART DISEASE OF [place] CORONARY 04/04/2016 ORENDER DO, AMPARO S Ot M50.30 OTHER CERVICAL DISC DEGENERATION, UNSP C 04/04/2016 ORENDER DO, AMPARO S Ot R51 HEADACHE 04/04/2016 ORENDER DO, AMPARO S Ot R53.83 OTHER FATIGUE 04/04/2016 ORENDER DO, AMPARO S Ot R55 SYNCOPE AND COLLAPSE 04/04/2016 ORENDER DO, AMPARO S Ot Z12.31 ENCNTR SCREEN MAMMOGRAM FOR MALIGNANT NE 04/04/2016 ORENDER DO, AMPARO S Ot E78.5 HYPERLIPIDEMIA, UNSPECIFIED 04/04/2016 ORENDER DO, AMPARO S Ot I25.10 ATHSCL HEART DISEASE OF [place] CORONARY 04/04/2016 ORENDER DO, AMPARO S Ot M50.30 OTHER CERVICAL DISC DEGENERATION, UNSP C 04/04/2016 ORENDER DO, AMPARO S Ot R51 HEADACHE 04/04/2016 ORENDER DO, AMPARO S Ot R53.83 OTHER FATIGUE 04/04/2016 ORENDER DO, AMPARO S Ot R55 SYNCOPE AND COLLAPSE 04/04/2016 ORENDER DO, AMPARO S Ot Z12.31 ENCNTR SCREEN MAMMOGRAM FOR MALIGNANT NE 04/28/2016 LENORA SOLOMON LOG LOADER Ot R10.11 RIGHT UPPER QUADRANT PAIN 04/28/2016 LENORA SOLOMON LOG LOADER Ot R11.0 NAUSEA 04/28/2016 LENORA SOLOMON LOG LOADER Ot R19.7 DIARRHEA, UNSPECIFIED 05/05/2016 LENORA SOLOMON LOG LOADER Ot R10.11 RIGHT UPPER QUADRANT PAIN 05/05/2016 LENORA SOLOMON LOG LOADER Ot R19.5 OTHER FECAL ABNORMALITIES 05/05/2016 LENORA SOLOMON LOG LOADER Ot R10.11 RIGHT UPPER QUADRANT PAIN 05/05/2016 LENORA SOLOMON LOG LOADER Ot R19.5 OTHER FECAL ABNORMALITIES 05/17/2016 LENORA SOLOMON LOG LOADER Ot R10.11 RIGHT UPPER QUADRANT PAIN 05/17/2016 LENORA SOLOMON LOG LOADER Ot R11.0 NAUSEA 05/17/2016 LENORA SOLOMON LOG LOADER Ot R19.7 DIARRHEA, UNSPECIFIED 05/19/2016 LAURY MASSEY AMPARO S Ot R19.7 DIARRHEA, UNSPECIFIED 05/24/2016 LENORA SOLOMON LOG LOADER Ot R10.11 RIGHT UPPER QUADRANT PAIN 05/24/2016 LENORA SOLOMON LOG LOADER Ot R19.5 OTHER FECAL ABNORMALITIES 06/08/2016 COLINJENISE GARCIA DOLINE S Ot R19.7 DIARRHEA, UNSPECIFIED 09/05/2016 JENISE MOCTEZUMA DOLINE S Ot 272.4 HYPERLIPIDEMIA NEC/NOS 09/05/2016 ELIER MOCTEZUMA DOQUELINE S Ot 414.01 CORONARY ATHEROSCLEROSIS OF [place] CORON 09/05/2016 JENISE MOCTEZUMA DOLINE S Ot 733.90 BONE CARTILAGE DIS NOS 09/05/2016 LAURY MASSEY AMPARO S Ot 780.79 OTH MALAISE FATIGUE 09/05/2016 ELIER MOCTEZUMA DOQUELINE S Ot V70.0 ROUTINE MEDICAL EXAM 09/05/2016 JENISE MOCTEZUMA DOLINE S Ot 401.9 HYPERTENSION NOS 09/05/2016 LAURY MASSEY AMPARO S Ot 414.00 CORON ATHEROSCLER NOS TYPE VESSEL, NATIV 09/05/2016 JENISE MOCTEZUMA DOLINE S Ot 780.2 SYNCOPE AND COLLAPSE 09/05/2016 Ot 401.9 HYPERTENSION NOS 09/05/2016 Ot V76.12 OTH SCREEN MAMMO-MALIGN NEOPLASM OF [place] 09/05/2016 ELIER MOCTEZUMA DOQUELINE S Ot 276.8 HYPOPOTASSEMIA 09/05/2016 JENISE MOCTEZUMA DOLINE S Ot 241.1 NONTOX MULTINODUL GOITER 09/05/2016 JOE BINGHAM Ot 241.1 NONTOX MULTINODUL GOITER 09/05/2016 JENISE MOCTEZUMA DOLINE S Ot E04.2 NONTOXIC MULTINODULAR GOITER 09/05/2016 ELIER MOCTEZUMA DOQUELINE S Ot I25.10 ATHSCL HEART DISEASE OF [place] CORONARY 09/05/2016 ORENDER DO, AMPARO S Ot K13.0 DISEASES OF LIPS 09/05/2016 ORENDER DO, AMPARO S Ot R53.83 OTHER FATIGUE 09/05/2016 CHELSEANDER DO, AMPARO S Ot E04.1 NONTOXIC SINGLE THYROID NODULE 09/05/2016 ORENDER DO, AMPARO S Ot E78.5 HYPERLIPIDEMIA, UNSPECIFIED 09/05/2016 ORENDER DO, AMPARO S Ot I25.10 ATHSCL HEART DISEASE OF [place] CORONARY 09/05/2016 ORENDER DO, AMPARO S Ot M50.30 OTHER CERVICAL DISC DEGENERATION, UNSP C 09/05/2016 ORENDER DO, AMPARO S Ot R51 HEADACHE 09/05/2016 ORENDER DO, AMPARO S Ot R53.83 OTHER FATIGUE 09/05/2016 CHELSEANDER DO, AMPARO S Ot R55 SYNCOPE AND COLLAPSE 09/05/2016 CHELSEANDER DO, AMPARO S Ot Z12.31 ENCNTR SCREEN MAMMOGRAM FOR MALIGNANT NE 09/05/2016 LENORA SOLOMON LOG LOADER Ot R10.11 RIGHT UPPER QUADRANT PAIN 09/05/2016 LENORA SOLOMON LOG LOADER Ot R11.0 NAUSEA 09/05/2016 LENORA SOLOMON LOG LOADER Ot R19.7 DIARRHEA, UNSPECIFIED 09/05/2016 LENORA SOLOMON LOG LOADER Ot R10.11 RIGHT UPPER QUADRANT PAIN 09/05/2016 LENORA SOLOMON LOG LOADER Ot R19.5 OTHER FECAL ABNORMALITIES 09/05/2016 CHELSEANDER DO AMPARO S Ot R19.7 DIARRHE[place], UNSPECIFIED 09/06/2016 LENORA SOLOMON LOG LOADER Ot E55.9 VITAMIN D DEFICIENCY, UNSPECIFIED 09/06/2016 LENORA SOLOMON LOG LOADER Ot E78.2 MIXED HYPERLIPIDEMIA 09/06/2016 LENORA SOLOMON LOG LOADER Ot I10 ESSENTIAL (PRIMARY) HYPERTENSION 09/06/2016 LENORA SOLOMON LOG LOADER Ot R73.01 IMPAIRED FASTING GLUCOSE 09/29/2016 LENORA SOLOMON LOG LOADER Ot E55.9 VITAMIN D DEFICIENCY, UNSPECIFIED 09/29/2016 LENORA SOLOMON LOG LOADER Ot E78.2 MIXED HYPERLIPIDEMIA 09/29/2016 NEHA, LENORA N LOG LOADER Ot I10 ESSENTIAL (PRIMARY) HYPERTENSION 09/29/2016 LENORA SOLOMON LOG LOADER Ot R73.01 IMPAIRED FASTING GLUCOSE 10/20/2016 LAURY MASSEY, AMPARO S Ot E78.5 HYPERLIPIDEMIA, UNSPECIFIED 10/20/2016 CHELSEANDRADHA MASSEY, AMPARO S Ot I25.10 ATHSCL HEART DISEASE OF [place] CORONARY 10/20/2016 LAURY MASSEY, AMPARO S Ot M50.30 OTHER CERVICAL DISC DEGENERATION, UNSP C 10/20/2016 CHELSEANDER , AMPARO S Ot R51 HEADACHE 10/20/2016 CHELSEANDER , AMPARO S Ot R53.83 OTHER FATIGUE 10/20/2016 CHELSEANDER , AMPARO S Ot R55 SYNCOPE AND COLLAPSE 10/20/2016 COLINER , AMPARO S Ot Z12.31 ENCNTR SCREEN MAMMOGRAM FOR MALIGNANT NE 04/12/2017 LAURY MASSEY AMPARO S Ot Z12.31 ENCNTR SCREEN MAMMOGRAM FOR MALIGNANT NE 04/12/2017 CHELSEANDER , AMPARO S Ot Z12.31 ENCNTR SCREEN MAMMOGRAM FOR MALIGNANT NE 04/13/2017 CHELSEANDER , AMPARO S Ot Z12.31 ENCNTR SCREEN MAMMOGRAM FOR MALIGNANT NE 04/13/2017 LAURY MASSEY, AMPARO S Ot 272.4 HYPERLIPIDEMIA NEC/NOS 04/13/2017 CHELSEANDRADHA MASSEY, AMPARO S Ot 414.01 CORONARY ATHEROSCLEROSIS OF [place] CORON 04/13/2017 LAURY MASSEY AMPARO S Ot 733.90 BONE CARTILAGE DIS NOS 04/13/2017 CHELSEANDER , AMPARO S Ot 780.79 OTH MALAISE FATIGUE 04/13/2017 CHELSEANDER , AMPARO S Ot V70.0 ROUTINE MEDICAL EXAM 04/13/2017 COLINER AMPARO S Ot 401.9 HYPERTENSION NOS 04/13/2017 CHELSEANDER DO, AMPARO S Ot 414.00 CORON ATHEROSCLER NOS TYPE VESSEL, NATIV 04/13/2017 CHELSEANDER AMPARO S Ot 780.2 SYNCOPE AND COLLAPSE 04/13/2017 Ot 401.9 HYPERTENSION NOS 04/13/2017 Ot V76.12 OTH SCREEN MAMMO-MALIGN NEOPLASM OF [place] 04/13/2017 ORENDER DO, AMPARO S Ot 276.8 HYPOPOTASSEMIA 04/13/2017 ORENDER DO, AMPARO S Ot 241.1 NONTOX MULTINODUL GOITER 04/13/2017 XENIASONI JOE Roque RAJIV Ot 241.1 NONTOX MULTINODUL GOITER 04/13/2017 ORENDER DO, AMPARO S Ot E04.2 NONTOXIC MULTINODULAR GOITER 04/13/2017 ORENDER DO, AMPARO S Ot I25.10 ATHSCL HEART DISEASE OF [place] CORONARY 04/13/2017 ORENDER DO, AMPARO S Ot K13.0 DISEASES OF LIPS 04/13/2017 ORENDER DO, AMPARO S Ot R53.83 OTHER FATIGUE 04/13/2017 CHELSEANDER DO, AMPARO S Ot E04.1 NONTOXIC SINGLE THYROID NODULE 04/13/2017 CHELSEANDER DO, AMPARO S Ot E78.5 HYPERLIPIDEMIA, UNSPECIFIED 04/13/2017 ORENDER DO, AMPARO S Ot I25.10 ATHSCL HEART DISEASE OF [place] CORONARY 04/13/2017 ORENDER DO, AMPARO S Ot M50.30 OTHER CERVICAL DISC DEGENERATION, UNSP C 04/13/2017 ORENDER DO, AMPARO S Ot R51 HEADACHE 04/13/2017 ORENDER DO, AMPARO S Ot R53.83 OTHER FATIGUE 04/13/2017 ORENDER DO, AMPARO S Ot R55 SYNCOPE AND COLLAPSE 04/13/2017 CHELSEANDER DO, AMPARO S Ot Z12.31 ENCNTR SCREEN MAMMOGRAM FOR MALIGNANT NE 04/13/2017 LENORA SOLOMON LOG LOADER Ot R10.11 RIGHT UPPER QUADRANT PAIN 04/13/2017 LENORA SOLOMON LOG LOADER Ot R11.0 NAUSEA 04/13/2017 LENORA SOLOMON APRN Ot R19.7 DIARRHEA, UNSPECIFIED 04/13/2017 LENORA SOLOMON LOG LOADER Ot R10.11 RIGHT UPPER QUADRANT PAIN 04/13/2017 LENORA SOLOMON LOG LOADER Ot R19.5 OTHER FECAL ABNORMALITIES 04/13/2017 CHELSEANDER DO, AMPARO S Ot R19.7 DIARRHEA, UNSPECIFIED 04/13/2017 LENORA SOLOMON LOG LOADER Ot E55.9 VITAMIN D DEFICIENCY, UNSPECIFIED 04/13/2017 LENORA SOLOMON LOG LOADER Ot E78.2 MIXED HYPERLIPIDEMIA 04/13/2017 LENORA SOLOMON LOG LOADER Ot I10 ESSENTIAL (PRIMARY) HYPERTENSION 04/13/2017 LENORA SOLOMON LOG LOADER Ot R73.01 IMPAIRED FASTING GLUCOSE 04/13/2017 CHELSEANDER DO, AMPARO S Ot Z12.31 ENCNTR SCREEN MAMMOGRAM FOR MALIGNANT NE 04/19/2017 ORENDER DO, AMPARO S Ot Z12.31 ENCNTR SCREEN MAMMOGRAM FOR MALIGNANT NE 04/19/2017 ORENDER DO, AMPARO S Ot Z12.31 ENCNTR SCREEN MAMMOGRAM FOR MALIGNANT NE 04/19/2017 ORENDER DO, AMPARO S Ot Z12.31 ENCNTR SCREEN MAMMOGRAM FOR MALIGNANT NE 04/19/2017 ORENDER DO, AMPARO S Ot Z12.31 ENCNTR SCREEN MAMMOGRAM FOR MALIGNANT NE 04/20/2017 ORENDER DO, AMPARO S Ot Z12.31 ENCNTR SCREEN MAMMOGRAM FOR MALIGNANT NE 05/11/2017 ORENDER DO, AMPARO S Ot Z12.31 ENCNTR SCREEN MAMMOGRAM FOR MALIGNANT NE 06/08/2017 CHELSEANDER DO, AMPARO S Ot E04.2 NONTOXIC MULTINODULAR GOITER 06/08/2017 CHELSEANDER DO, AMPARO S Ot E55.9 VITAMIN D DEFICIENCY, UNSPECIFIED 06/08/2017 CHELSEANDER DO, AMPARO S Ot I25.10 ATHSCL HEART DISEASE OF [place] CORONARY 06/08/2017 CHELSEANDER DO, AMPARO S Ot R53.82 CHRONIC FATIGUE, UNSPECIFIED 06/09/2017 CHELSEANDER DO, AMPARO S Ot M51.16 INTERVERTEBRAL DISC DISORDERS W RADICULO 06/28/2017 CHELSEANDER DO, AMPARO S Ot E04.2 NONTOXIC MULTINODULAR GOITER 06/28/2017 CHELSEANDER DOELIERAMPARO S Ot E55.9 VITAMIN D DEFICIENCY, UNSPECIFIED 06/28/2017 CHELSEANDER DO AMPARO S Ot I25.10 ATHSCL HEART DISEASE OF [place] CORONARY 06/28/2017 CHELSEANDER DO, AMPARO S Ot R53.82 CHRONIC FATIGUE, UNSPECIFIED 07/05/2017 ORENDER DO, AMPARO S Ot E04.2 NONTOXIC MULTINODULAR GOITER 07/05/2017 CHELSEANDER DO, AMPARO S Ot E55.9 VITAMIN D DEFICIENCY, UNSPECIFIED 07/05/2017 ORENDER DO, AMPARO S Ot I25.10 ATHSCL HEART DISEASE OF [place] CORONARY 07/05/2017 CHELSEANDER DO, AMPARO S Ot R53.82 CHRONIC FATIGUE, UNSPECIFIED 07/09/2017 ORENDER DO, AMPARO S Ot M51.16 INTERVERTEBRAL DISC DISORDERS W RADICULO 07/25/2017 ORENDER DO, AMPARO S Ot M51.16 INTERVERTEBRAL DISC DISORDERS W RADICULO 12/26/2017 ORENDER DO, AMPARO S Ot E55.9 VITAMIN D DEFICIENCY, UNSPECIFIED 12/26/2017 ORENDER DO, AMPARO S Ot E78.2 MIXED HYPERLIPIDEMIA 12/26/2017 ORENDER DO, AMPARO S Ot I10 ESSENTIAL (PRIMARY) HYPERTENSION 12/26/2017 ORENDER DO, AMPARO S Ot I25.10 ATHSCL HEART DISEASE OF [place] CORONARY 12/26/2017 CHELSEANDER DO, AMPARO S Ot E55.9 VITAMIN D DEFICIENCY, UNSPECIFIED 12/26/2017 ORENDER DO, AMPARO S Ot E78.2 MIXED HYPERLIPIDEMIA 12/26/2017 ORENDER DO, AMPARO S Ot I10 ESSENTIAL (PRIMARY) HYPERTENSION 12/26/2017 ORENDER DO, AMPARO S Ot I25.10 ATHSCL HEART DISEASE OF [place] CORONARY 01/15/2018 CHELSEANDER DO, AMPARO S Ot E55.9 VITAMIN D DEFICIENCY, UNSPECIFIED 01/15/2018 ORENDER DO, AMPARO S Ot E78.2 MIXED HYPERLIPIDEMIA 01/15/2018 ORENDER DO, AMPARO S Ot I10 ESSENTIAL (PRIMARY) HYPERTENSION 01/15/2018 ORENDER DO, AMPARO S Ot I25.10 ATHSCL HEART DISEASE OF [place] CORONARY 01/16/2018 MARIAM HERNADEZ, REX Jackson Ot K21.9 GASTRO-ESOPHAGEAL REFLUX DISEASE WITHOUT 01/16/2018 REX BECERRA MD Ot Z01.818 ENCOUNTER FOR OTHER PREPROCEDURAL EXAMIN 01/16/2018 REX BECERRA MD Ot Z12.11 ENCOUNTER FOR SCREENING FOR MALIGNANT NE Procedures There is no data. Results Test Result Range Complete blood count (CBC) with automated white blood cell (WBC) differential - 02/25/16 09:30 Blood leukocytes automated count (number/volume) 7.6 10*3/uL 4.3-11.0 Blood erythrocytes automated count (number/volume) 4.95 10*6/uL 4.35-5.85 Venous blood hemoglobin measurement (mass/volume) 15.2 [...] Automated blood platelet mean volume measurement 9.5 [foz_us] 7.4-10.4 Automated blood neutrophils/100 leukocytes 65 % [...] Serum or plasma sodium measurement (moles/volume) 140 mmol/L 135-145 Serum or plasma potassium measurement (moles/volume) 4.9 mmol/L 3.6-5.0 Serum or plasma chloride measurement (moles/volume) 103 mmol/L 98-107 Carbon dioxide 27 mmol/L 21-32 Serum or plasma anion gap determination (moles/volume) 10 mmol/L 5-14 Serum or plasma urea nitrogen measurement (mass/volume) 23 mg/dL 7-18 Serum or plasma creatinine measurement (mass/volume) 0.77 mg/dL 0.60-1.30 Serum or plasma urea nitrogen/creatinine mass [...] Serum or plasma cholesterol measurement (mass/volume) 160 mg/dL < 200 Serum or plasma cholesterol in HDL measurement (mass/volume) 51 mg/ dL 40-60 Cholesterol in LDL [mass/volume] in serum or plasma by direct assay 86 mg/dL 1-129 Serum or plasma cholesterol in VLDL measurement (mass/volume) 38 mg/ dL 5-40 Hemoglobin A1c - 02/25/16 09:30 Hemoglobin [...] 4.00-6.00 RED CELL DISTRIBUTION WIDTH 13.2 % 11.0-15.6 WHITE BLOOD CELL 8.1 k/cumm 5.0-10.0 HEMOGLOBIN [...] 4.00-6.00 RED CELL DISTRIBUTION WIDTH 13.2 % 11.0-15.6 WHITE BLOOD CELL 6.8 k/cumm 5.0-10.0 HEMOGLOBIN 13.5 gm/dL 12.0-16.0 HEMATOCRIT 40.4 % 37.0-47.0 PLATELET COUNT 233 k/cumm 150-450 Serum or plasma amylase measurement (enzymatic activity/volume) - 05/04/16 14: 11 Serum or plasma amylase measurement (enzymatic activity/volume) 41 U /L 25-125 Lipase - 05/04/16 14:11 Lipase 6 U/L 8-78 Complete blood count (CBC) with automated white blood cell (WBC) differential - 09/05/16 08:53 Blood leukocytes automated count (number/volume) 6.8 10*3/uL 4.3-11.0 Blood erythrocytes automated count (number/volume) 5.17 10*6/uL 4.35-5.85 Venous blood hemoglobin measurement (mass/volume) 15.6 g/dL 11.5-16.0 Blood hematocrit (volume fraction) 46 % 35-52 Automated erythrocyte mean corpuscular volume 90 [foz_us] 80-99 Automated erythrocyte mean corpuscular hemoglobin (mass per erythrocyte) 30 pg 25-34 Automated erythrocyte mean corpuscular hemoglobin concentration measurement ( mass/volume) 34 g/dL 32-36 Automated erythrocyte distribution width ratio 13.6 % 10.0-14.5 Automated blood platelet count (count/volume) 282 10*3/uL 130-400 Automated blood platelet mean volume measurement 8.9 [foz_us] 7.4-10.4 Automated blood neutrophils/100 leukocytes 67 % 42-75 Automated blood lymphocytes/100 leukocytes 21 % 12-44 Blood monocytes/100 leukocytes 10 % 0-12 Automated blood eosinophils/100 leukocytes 1 % 0-10 Automated blood basophils/100 leukocytes 0 % 0-10 Blood neutrophils automated count (number/volume) 4.6 10*3 1.8-7.8 Blood lymphocytes automated count (number/volume) 1.4 10*3 1.0-4.0 Blood monocytes automated count (number/volume) 0.7 10*3 0.0-1.0 Automated eosinophil count 0.1 10*3/uL 0.0-0.3 Automated blood basophil count (count/volume) 0.0 10*3/uL 0.0-0.1 Comprehensive metabolic panel - 09/05/16 08:53 Serum or plasma sodium measurement (moles/volume) 142 mmol/L 135-145 Serum or plasma potassium measurement (moles/volume) 4.0 mmol/L 3.6-5.0 Serum or plasma chloride measurement (moles/volume) 106 mmol/L 98-107 Carbon dioxide 26 mmol/L 21-32 Serum or plasma anion gap determination (moles/volume) 10 mmol/L 5-14 Serum or plasma urea nitrogen measurement (mass/volume) 20 mg/dL 7-18 Serum or plasma creatinine measurement (mass/volume) 0.76 mg/dL 0.60-1.30 Serum or plasma urea nitrogen/creatinine mass ratio 26 NRG Serum or plasma creatinine measurement with calculation of estimated glomerular filtration rate > NRG Serum or plasma glucose measurement (mass/volume) 82 mg/dL 70-105 Serum or plasma calcium measurement (mass/volume) 9.3 mg/dL 8.5-10.1 Serum or plasma total bilirubin measurement (mass/volume) 0.4 mg/dL 0.1-1.0 Serum or plasma alkaline phosphatase measurement (enzymatic activity/volume) 89 U/L 40-136 Serum or plasma aspartate aminotransferase measurement (enzymatic activity/ volume) 27 U/L 5-34 Serum or plasma alanine aminotransferase measurement (enzymatic activity/volume ) 23 U/L 0-55 Serum or plasma protein measurement (mass/volume) 7.2 g/dL 6.4-8.2 Serum or plasma albumin measurement (mass/volume) 4.2 g/dL 3.2-4.5 Lipid 1996 panel - 09/05/16 08:53 Serum or plasma triglyceride measurement (mass/volume) 123 mg/dL <150 Serum or plasma cholesterol measurement (mass/volume) 152 mg/dL < 200 Serum or plasma cholesterol in HDL measurement (mass/volume) 53 mg/ dL 40-60 Cholesterol in LDL [mass/volume] in serum or plasma by direct assay 79 mg/dL 1-129 Serum or plasma cholesterol in VLDL measurement (mass/volume) 25 mg/ dL 5-40 Hemoglobin A1c - 09/05/16 08:53 Hemoglobin A1c 5.6 % 4.5-6.2 THYROID STIMULATING HORMONE - 09/05/16 08:53 THYROID STIMULATING HORMONE 0.88 u[iU]/mL 0.35-4.94 Serum or plasma thyroxine (T4) free measurement (mass/volume) - 09/05/16 08:53 Serum or plasma thyroxine (T4) free measurement (mass/volume) 0.86 ng/dL 0.70-1.48 25-hydroxyvitamin D measurement - 09/05/16 08:53 25-hydroxy vitamin D measurement 25 % 30-100 Complete blood count (CBC) with automated white blood cell (WBC) differential - 06/07/17 08:49 Blood leukocytes automated count (number/volume) 7.4 10*3/uL 4.3-11.0 Blood erythrocytes automated count (number/volume) 4.94 10*6/uL 4.35-5.85 Venous blood hemoglobin measurement (mass/volume) 15.1 g/dL 11.5-16.0 Blood hematocrit (volume fraction) 45 % 35-52 Automated erythrocyte mean corpuscular volume 91 [foz_us] 80-99 Automated erythrocyte mean corpuscular hemoglobin (mass per erythrocyte) 31 pg 25-34 Automated erythrocyte mean corpuscular hemoglobin concentration measurement ( mass/volume) 34 g/dL 32-36 Automated erythrocyte distribution width ratio 13.2 % 10.0-14.5 Automated blood platelet count (count/volume) 294 10*3/uL 130-400 Automated blood platelet mean volume measurement 9.3 [foz_us] 7.4-10.4 Automated blood neutrophils/100 leukocytes 72 % 42-75 Automated blood lymphocytes/100 leukocytes 16 % 12-44 Blood monocytes/100 leukocytes 11 % 0-12 Automated blood eosinophils/100 leukocytes 2 % 0-10 Automated blood basophils/100 leukocytes 0 % 0-10 Blood neutrophils automated count (number/volume) 5.3 10*3 1.8-7.8 Blood lymphocytes automated count (number/volume) 1.2 10*3 1.0-4.0 Blood monocytes automated count (number/volume) 0.8 10*3 0.0-1.0 Automated eosinophil count 0.1 10*3/uL 0.0-0.3 Automated blood basophil count (count/volume) 0.0 10*3/uL 0.0-0.1 Comprehensive metabolic panel - 06/07/17 08:49 Serum or plasma sodium measurement (moles/volume) 140 mmol/L 135-145 Serum or plasma potassium measurement (moles/volume) 4.0 mmol/L 3.6-5.0 Serum or plasma chloride measurement (moles/volume) 103 mmol/L 98-107 Carbon dioxide 29 mmol/L 21-32 Serum or plasma anion gap determination (moles/volume) 8 mmol/L 5-14 Serum or plasma urea nitrogen measurement (mass/volume) 21 mg/dL 7-18 Serum or plasma creatinine measurement (mass/volume) 0.79 mg/dL 0.60-1.30 Serum or plasma urea nitrogen/creatinine mass ratio 27 NRG Serum or plasma creatinine measurement with calculation of estimated glomerular filtration rate > NRG Serum or plasma glucose measurement (mass/volume) 86 mg/dL 70-105 Serum or plasma calcium measurement (mass/volume) 9.4 mg/dL 8.5-10.1 Serum or plasma total bilirubin measurement (mass/volume) 0.6 mg/dL 0.1-1.0 Serum or plasma alkaline phosphatase measurement (enzymatic activity/volume) 100 U/L 40-136 Serum or plasma aspartate aminotransferase measurement (enzymatic activity/ volume) 23 U/L 5-34 Serum or plasma alanine aminotransferase measurement (enzymatic activity/volume ) 23 U/L 0-55 Serum or plasma protein measurement (mass/volume) 7.5 g/dL 6.4-8.2 Serum or plasma albumin measurement (mass/volume) 4.2 g/dL 3.2-4.5 Lipid 1996 panel - 06/07/17 08:49 Serum or plasma triglyceride measurement (mass/volume) 67 mg/dL <150 Serum or plasma cholesterol measurement (mass/volume) 144 mg/dL < 200 Serum or plasma cholesterol in HDL measurement (mass/volume) 59 mg/ dL 40-60 Cholesterol in LDL [mass/volume] in serum or plasma by direct assay 67 mg/dL 1-129 Serum or plasma cholesterol in VLDL measurement (mass/volume) 13 mg/ dL 5-40 THYROID STIMULATING HORMONE - 06/07/17 08:49 THYROID STIMULATING HORMONE 0.86 u[iU]/mL 0.35-4.94 VITAMIN D FRACTIONATED D2 D3 - 06/07/17 08:49 25-hydroxy vitamin D measurement 70.34 % 30.00-100.00 Serum or plasma cholecalciferol (vitamin D3) measurement (mass/volume) 70.34 % NRG Serum or plasma 25-hydroxycalciferol measurement (mass/volume) < % NRG 25-hydroxyvitamin D measurement - 06/07/17 08:49 25-hydroxy vitamin D measurement 72 % 30-100 Comprehensive metabolic panel - 12/24/17 09:34 Serum or plasma sodium measurement (moles/volume) 140 mmol/L 135-145 Serum or plasma potassium measurement (moles/volume) 3.9 mmol/L 3.6-5.0 Serum or plasma chloride measurement (moles/volume) 103 mmol/L 98-107 Carbon dioxide 28 mmol/L 21-32 Serum or plasma anion gap determination (moles/volume) 9 mmol/L 5-14 Serum or plasma urea nitrogen measurement (mass/volume) 22 mg/dL 7-18 Serum or plasma creatinine measurement (mass/volume) 0.75 mg/dL 0.60-1.30 Serum or plasma urea nitrogen/creatinine mass ratio 29 NRG Serum or plasma creatinine measurement with calculation of estimated glomerular filtration rate > NRG Serum or plasma glucose measurement (mass/volume) 87 mg/dL 70-105 Serum or plasma calcium measurement (mass/volume) 10.0 mg/dL 8.5-10.1 Serum or plasma total bilirubin measurement (mass/volume) 0.5 mg/dL 0.1-1.0 Serum or plasma alkaline phosphatase measurement (enzymatic activity/volume) 85 U/L 40-136 Serum or plasma aspartate aminotransferase measurement (enzymatic activity/ volume) 24 U/L 5-34 Serum or plasma alanine aminotransferase measurement (enzymatic activity/volume ) 21 U/L 0-55 Serum or plasma protein measurement (mass/volume) 7.3 g/dL 6.4-8.2 Serum or plasma albumin measurement (mass/volume) 4.5 g/dL 3.2-4.5 Lipid 1996 panel - 12/24/17 09:34 Serum or plasma triglyceride measurement (mass/volume) 113 mg/dL <150 Serum or plasma cholesterol measurement (mass/volume) 144 mg/dL < 200 Serum or plasma cholesterol in HDL measurement (mass/volume) 55 mg/ dL 40-60 Cholesterol in LDL [mass/volume] in serum or plasma by direct assay 72 mg/dL 1-129 Serum or plasma cholesterol in VLDL measurement (mass/volume) 23 mg/ dL 5-40 THYROID STIMULATING HORMONE - 12/24/17 09:34 THYROID STIMULATING HORMONE 1.05 u[iU]/mL 0.35-4.94 Serum or plasma thyroxine (T4) free measurement (mass/volume) - 12/24/17 09:34 Serum or plasma thyroxine (T4) free measurement (mass/volume) 0.93 ng/dL 0.70-1.48 VITAMIN D 25-HYDROXY - 12/24/17 09:34 VITAMIN D 25-HYDROXY (TOTAL) 76.6 % 30.0-100.0 Encounters ACCT No. Visit Date/Time Discharge Status Pt. Type Provider Facility Loc./Unit Complaint [id number] 03/29/2016 12:28:00 03/30/2016 08:47:00 DIS Outpatient Dagoberto HERNADEZ, Rex Paniagua [facility] E.CVLO [id number] 03/22/2016 08:04:00 03/22/2016 08:04:00 DIS Outpatient Mike HERNADEZ, Blaine Elam [facility] E.RAC [id number] 07/20/2017 09:10:00 07/20/2017 23:59:59 CLS Out[facility] [id number] 01/15/2018 06:09:00 01/15/2018 14:54:00 DIS Outpatient MARIAM HERNADEZ, REX [facility] PREOP COLONOSCOPY/EGD [id number] 12/24/2017 09:10:00 12/24/2017 23:59:59 CLS Outpatient LAURY MASSEY AMPARO S [facility] LAB E78.2,17.0,125.10 [id number] 06/30/2017 10:21:00 07/25/2017 16:12:00 DIS Outpatient CHELSEAWILLAMAMPARO GARCIA DO S [facility] REHAB LUMBAR DEG DISC DISEASE; R LEG SCIATICA [id number] 06/07/2017 08:31:00 06/07/2017 23:59:59 CLS Outpatient CHELSEAWILLAMAMPARO GARCIA DO S [facility] RAD BILATERAL THRYOID NODULES [id number] 04/19/2017 10:59:00 04/19/2017 23:59:59 CLS Outpatient LAURY AMPARO MASSEY S [facility] RAD 3D MAMMO SCREENING [id number] 09/05/2016 08:35:00 09/05/2016 23:59:59 CLS Outpatient LENORA SOLOMON LOG LOADER [facility] LAB ESSENTIAL HYPERTENSION,MIXED HYPERLIPIDEMIA [id number] 05/18/2016 12:12:00 05/18/2016 23:59:59 CLS Outpatient CHELSEARADHA AMPARO MASSEY S [facility] LAB DIARRHEA [id number] 05/04/2016 14:06:00 05/04/2016 23:59:59 CLS Outpatient LENORA SOLOMON [employer] LOADER [facility] LAB RUQ PAIN,CHANGE IN STOOL [id number] 04/27/2016 09:13:00 04/27/2016 23:59:59 CLS Outpatient LENORA SOLOMON [employer] LO[employer]ER [facility] RAD GENERALZAED ABD PAIN, RUQ PAIN,DIARRHEA [id number] 02/25/2016 08:54:00 02/25/2016 23:59:59 CLS Outpatient CHELSEAWILLAMAMPARO GARCIA DO S [facility] RAD SYNCOPE,WEAKNESS, CAD,FATIGUE,HLP,SCREENING [id number] 07/10/2015 14:22:00 07/10/2015 23:59:59 CLS Outpatient AMPARO MOCTEZUMA DO S [facility] RAD THYROID NODULES [id number] 07/06/2015 08:14:00 07/06/2015 23:59:59 CLS Outpatient AMPARO MOCTEZUMA DO S [facility] LAB THYROID NODULES,CAD ,FATIGUE [id number] 11/20/2014 10:38:00 11/20/2014 23:59:59 CLS Outpatient JOE BINGHAMP [facility] CARD MULTI NODULAR THYROID [id number] 11/12/2014 12:37:00 11/12/2014 23:59:59 CLS Outpatient AMPARO MOCTEZUMA DO S [facility] RAD THYROID NODULES [id number] 11/07/2014 13:22:00 11/07/2014 23:59:59 CLS Outpatient AMPARO MOCTEZUMA DO S [facility] LAB HYPOKALCEMIA [id number] 01/27/2014 06:37:00 01/27/2014 23:59:59 CLS Outpatient AMPARO MOCTEZUMA DO S [facility] LAB YEARLY LABS,HLP,CAD ,FATIGUE,OSETOPENIA [id number] 02/16/2013 07:55:00 02/16/2013 23:59:59 CLS Outpatient AMPARO MOCTEZUMA DO S [facility] LAB HYPERTENSION HEART DISEASE SYNCOPE AND COLLAPSE [id number] 01/19/2018 09:30:00 PEN PreadREX Hair MD [facility] ENDO SCREEENING/GERD [id number] 09/05/2014 07:07:00 Document Registration 08/06/13 12/26/2017 15:06:01 12/26/2017 23:59:59 CLS Outpatient Amparo Moctezuma.
[2018-01-19] MEDS ORDERED: LACTATED RINGERS 1,000 ML IV STA (07:28)
[2018-01-19] MEDS ORDERED: LACTATED RINGERS 1,000 ML IV ONE (07:30)
[2018-01-19] MEDS ORDERED: HURRICAINE EXT TUBE (BENZOCAINE) XX PRN (07:30)
[2018-01-19 07:46] VITALS: BP 148/74
--- NOTE | 2018-01-19 07:59 | Pre-Op Note & Conscious Sedat ---
Pre-Operative Progress Note H&P Reviewed The H&P was reviewed, patient examined and no changes noted. Date H&P Reviewed: Jan 19, 2018 Time H&P Reviewed: 07:59 Conscious Sedation Pre-Proced ASA Class: 2 Airway Mallampati Classification: ([place] appropriate class) I. II. III, IV Lungs Heart ASA score ASA 1: a normal healthy patient ASA 2: a patient with a mild systemic disease (mid diabetes, controlled hypertension, obesity ASA 3: a patient with a severe systemic disease that limits activity (angina , COPD, prior Myocardial infarction) ASA 4: a patient with an incapacitating disease that is a constant threat to life (CHF, renal failure) ASA 5: a moribund patient not expected to survive 24 hrs. (ruptured aneurysm) ASA 6: a declared brain patient whose organs are being harvested. For emergent operations, add the letter E after the classification Grade 3 Sedation Plan: Analgesia, Amnesia, Plan communicated to team members, Discussed options with patient/fam, Discussed risks with patient/fam Note The patient is an appropriate candidate to undergo the planned procedure, sedation, and anesthesia. The patient immediately re-assessed prior to indication. REX BECERRA MD Jan 19, 2018 07:59
[2018-01-19] MEDS ORDERED: PROPOFOL INJECTION 50 ML IV ONE (08:06)
[2018-01-19] MEDS ORDERED: MIDAZOLAM 2 MG/2 ML (VERSED) VIAL ONE (08:07)
[2018-01-19 09:20] VITALS: BP 141/89
[2018-01-19] MEDS ORDERED: ONDANSETRON 4 MG/2 ML (SDV) Z0FRAN ONE (09:26)
[2018-01-19] MEDS ORDERED: ONDANSETRON 4 MG/2 ML (SDV) Z0FRAN IVP ONE (09:30)
[2018-01-19] MEDS ORDERED: PANT40TA3 PO (09:33)
[2018-01-19 09:45] VITALS: BP 151/95
--- NOTE | 2018-01-19 18:41 | OPERATIVE REPORT ---
DATE OF SERVICE: COLONOSCOPY SUMMARY INDICATION FOR THE PROCEDURE: Colonoscopy is performed for screening purposes. The patient also underwent EGD evaluation due to increasing reflux symptoms and epigastric pain with sensation of dysphagia. The patient was placed in left lateral decubitus position. Prior to undergoing colonoscopy, digital rectal evaluation was performed. There were no abnormalities noted to digital inspection of the anal canal or rectal vault. The colonoscope was then inserted into the rectum under direct visualization and advanced to the cecum. The cecum was identified by identification of the ileocecal valve and cecal strap. Photographic documentation was obtained. Careful inspection was made as the colonoscope was withdrawn. FINDINGS: The rectum was unremarkable on visual inspection. There are a few small diverticula noted in the proximal sigmoid colon, which was otherwise unremarkable. The descending colon, splenic flexure, transverse colon and hepatic flexure were unremarkable. There is a diminutive 2 mm polyp noted in the mid ascending colon, which was photographed and biopsied and ablated with no subsequent blood loss. The remainder of the ascending colon and cecum were unremarkable. ASSESSMENT: 1. Minimal diverticular disease in the form of 2 small proximal sigmoid diverticula but were present without evidence of diverticulitis. 2. One diminutive polyp was removed from the mid ascending colon. This is otherwise normal colonoscopy of the cecum. We would advocate consideration for repeat screening colonoscopy in 10 years, but only if she is deemed to be in excellent health. We then proceeded with EGD evaluation. The endoscope was inserted into the oral cavity under direct visualization and the esophagus was intubated. The endoscope was passed down the esophagus through the stomach and second portion of the duodenum. A careful inspection was made as the endoscope was withdrawn. FINDINGS: Posterior hypopharynx, epiglottis, arytenoid aperture, true and false vocal folds were unremarkable with visual inspection. Proximal and mid esophagus were unremarkable. There is a small sliding hiatal hernia present with LA grade B erosive esophagitis. There is no evidence for stricture formation and no visual evidence to suggest Lloyd's change. Two biopsies were obtained from the GE junction. There is evidence for intact gastric stapling with about a 6 ounce sized pouch involving the cardia of the stomach. There is a marginal ulceration that appeared shallow at the level of gastric stapling. It was biopsied and not indurated with tissue being submitted for histopathology. The fundus, antrum, pylorus, pyloric channel, duodenal bulb and second portion of the duodenum were unremarkable. ASSESSMENT: 1. The patient did have erosive esophagitis, LA grade B in severity without evidence for stricture formation or overt evidence for Lloyd's change. Biopsies are pending. 2. Marginal ulceration at the level of this patient's intact gastric stapling was present without overt evidence for stricture formation. A biopsy was obtained and submitted for histopathology. We will have the patient return in 6 to 8 weeks for repeat surveillance EGD. Currently, the patient has been on Pepcid 40 mg at bedtime, especially in light of the fact now that she is on aspirin and Plavix. I took the liberty of initiating pantoprazole 40 mg to take each morning. She will likely need indefinite proton pump inhibitor therapy. I thank you for the referral of this pleasant lady. Job ID: [id number] DocumentID: [id number] Dictated Date: 01/19/2018 12:40:31 Bead Wrapper Date: 01/19/2018 18:40:40 Dictated By: REX BECERRA MD MTDD
== END 2018-01-19 11:00 | disposition home or self-care (01) ==
LOC: ENDO 07:14
PROVIDERS: ATTEND Internal Medicine
DX: Z12.11 Encounter for screening for malignant neoplasm of colon (principal); K63.5 Polyp of colon; K57.30 Diverticulosis of large intestine without perforation or abscess without bleeding; K22.10 Ulcer of esophagus without bleeding; K25.9 Gastric ulcer, unspecified as acute or chronic, without hemorrhage or perforation; I25.10 Atherosclerotic heart disease of native coronary artery without angina pectoris; I10 Essential (primary) hypertension; Z79.02 Long term (current) use of antithrombotics/antiplatelets; Z79.82 Long term (current) use of aspirin; Z95.5 Presence of coronary angioplasty implant and graft

== ENCOUNTER 2018-03-15 05:40 | Outpatient (CLI) | payer MEDICARE, OTHER ==
[~2018-03-15] VITALS: Ht 165.1 cm; Wt 72.6 kg
[~2018-03-15 05:40] MED LIST changes: +PANT40TA3 PO
[2018-03-16] MEDS ORDERED: PANT40TA3 PO (11:28)
== END 2018-03-15 11:08 | disposition home or self-care (01) ==
LOC: PREOP 05:40
PROVIDERS: ATTEND Internal Medicine
DX: Z01.818 Encounter for other preprocedural examination (principal)

== ENCOUNTER 2018-03-16 08:12 | Day surgery (SDC) | payer MEDICARE, OTHER ==
--- NOTE | 2018-03-15 15:39 | HISTORY AND PHYSICAL ---
DATE OF SERVICE: HISTORY OF PRESENT ILLNESS: The patient is a 72-year-old white female undergoing surveillance EGD for followup of gastric ulceration. She had a marginal-appearing ulceration proximal to a gastric stapling in the cardia of the stomach. She also had LA grade B erosive esophagitis. She is also on aspirin and Plavix at the time that she takes for past history of TIAs as I recall. She apparently had one drug-eluting stent placed a little over 2 years ago. Her aspirin was discontinued and she has continued Plavix as well as pantoprazole. She has recently switched back to 40 mg of famotidine. She does have some heartburn during the day. She takes famotidine at night, but has noted no dysphagia and has had no melena or bright red blood per rectum. She has had no TIA symptoms. PAST MEDICAL HISTORY: Significant for hypertension in addition to her TIAs. PAST SURGICAL HISTORY: She had C6-C7 fusion over 10 years ago requiring anterior and posterior repair. She had gastric stapling many years ago for obesity, has had 2 C-sections and a surgery for lysis of adhesions for small-bowel obstruction in 1995 and an appendectomy followed this. Past medical history also significant for hyperlipidemia. PHYSICAL EXAMINATION: GENERAL: Reveals a pleasant white female. Normal skin coloration, in no acute distress. VITAL SIGNS: Blood pressure 114/74, weight 165.2 pounds which is up 4 pounds from 2 months ago. Heart rate 72 and regular. HEENT: Sclerae nonicteric. No pallor is noted. CHEST: Clear to auscultation. CARDIOVASCULAR: Reveals regular rate and rhythm without murmur, S3 or S4. ABDOMEN: Soft, supple. Multiple well-healed surgical scars. No mass or organomegaly noted. No distention is noted. Bowel sounds are positive. EXTREMITIES: Reveal no cyanosis, clubbing or edema. ASSESSMENT: The patient is set up for surveillance EGD for gastric ulceration followup on 03/16/2018. She is to abstain from aspirin and Plavix in the interim. Job ID: [id number] DocumentID: [id number] Dictated Date: 03/14/2018 16:30:18 Combat Engineer Date: 03/14/2018 16:58:59 Dictated By: REX BECERRA MD
--- OUTSIDE RECORDS SUMMARY | 2018-03-16 08:17 | XMS REPORT | Continuity of Care Document ---
Author Author [facility] Organization [facility] Address Unknown Phone Unavailable Allergies Active Description Code Type Severity Reaction Onset Reported/Identified Relationship to Patient Clinical Status Yes No Known Allergies No Known Allergies Drug Allergy Unknown N/A 2012 Yes No Known Drug Allergies [id number] Drug Allergy Unknown N/A 02/25/2016 Medications There [...] Ot 401.9 11/07/2014 Ot V76.12 12/12/2014 CHELSEANDRADHA DO AMPARO S Ot 241.1 12/12/2014 CHELSEANDRADHA DOELIERAMPARO S Ot 276.8 12/15/2014 CHELSEANDRADHA DO, AMPARO S Ot 241.1 12/22/2014 JOE BINGHAM INSTRUCTOR BRIDGE Ot 241.1 12/25/2014 JOE BINGHAM INSTRUCTOR BRIDGE Ot 241.1 07/24/2015 ELIER MOCTEZUMA DOQUELINE S [...] S Ot I25.10 ATHSCL HEART DISEASE OF [place] CORONARY 02/26/2016 ORENDER DO, AMPARO S Ot [...] S Ot I25.10 ATHSCL HEART DISEASE OF [place] CORONARY 03/22/2016 ORENDER DO, AMPARO S Ot [...] S Ot I25.10 ATHSCL HEART DISEASE OF [place] CORONARY 04/04/2016 ORENDER DO, AMPARO S Ot [...] S Ot I25.10 ATHSCL HEART DISEASE OF [place] CORONARY 04/04/2016 ORENDER DO, AMPARO S Ot M50.30 OTHER CERVICAL DISC DEGENERATION, UNSP C 04/04/2016 ORENDER DO, AMPARO S Ot R51 HEADACHE 04/04/2016 ORENDER DO, AMPARO S Ot R53.83 OTHER FATIGUE 04/04/2016 ORENDER DO, AMPARO S Ot R55 SYNCOPE AND COLLAPSE 04/04/2016 ORENDER DO, AMPARO S Ot Z12.31 ENCNTR SCREEN MAMMOGRAM FOR MALIGNANT NE 04/28/2016 LENORA SOLOMON MAT INSPECTOR Ot R10.11 RIGHT UPPER QUADRANT PAIN 04/28/2016 LENORA SOLOMON MAT INSPECTOR Ot R11.0 NAUSEA 04/28/2016 LENORA SOLOMON MAT INSPECTOR Ot R19.7 DIARRHEA, UNSPECIFIED 05/05/2016 LENORA SOLOMON MAT INSPECTOR Ot R10.11 RIGHT UPPER QUADRANT PAIN 05/05/2016 LENORA SOLOMON MAT INSPECTOR Ot R19.5 OTHER FECAL ABNORMALITIES 05/05/2016 LENORA SOLOMON MAT INSPECTOR Ot R10.11 RIGHT UPPER QUADRANT PAIN 05/05/2016 LENORA SOLOMON MAT INSPECTOR Ot R19.5 OTHER FECAL ABNORMALITIES 05/17/2016 LENORA SOLOMON MAT INSPECTOR Ot R10.11 RIGHT UPPER QUADRANT PAIN 05/17/2016 LENORA SOLOMON MAT INSPECTOR Ot R11.0 NAUSEA 05/17/2016 LENORA SOLOMON MAT INSPECTOR Ot R19.7 DIARRHEA, UNSPECIFIED 05/19/2016 LAURY MASSEY AMPARO S Ot R19.7 DIARRHEA, UNSPECIFIED 05/24/2016 LENORA SOLOMON MAT INSPECTOR Ot R10.11 RIGHT UPPER QUADRANT PAIN 05/24/2016 LENORA SOLOMON MAT INSPECTOR Ot R19.5 OTHER FECAL ABNORMALITIES 06/08/2016 COLINJENISE GARCIA DOLINE S Ot R19.7 DIARRHEA, UNSPECIFIED 09/05/2016 JENISE MOCTEZUMA DOLINE S Ot 272.4 HYPERLIPIDEMIA NEC/NOS 09/05/2016 ELIER MOCTEZUMA DOQUELINE S Ot 414.01 CORONARY ATHEROSCLEROSIS OF [place] CORON 09/05/2016 JENISE MOCTEZUMA DOLINE S Ot [...] S Ot I25.10 ATHSCL HEART DISEASE OF [place] CORONARY 09/05/2016 ORENDER DO, AMPARO S Ot K13.0 DISEASES OF LIPS 09/05/2016 ORENDER DO, AMPARO S Ot R53.83 OTHER FATIGUE 09/05/2016 CHELSEANDER DO, AMPARO S Ot E04.1 NONTOXIC SINGLE THYROID NODULE 09/05/2016 ORENDER DO, AMPARO S Ot E78.5 HYPERLIPIDEMIA, UNSPECIFIED 09/05/2016 ORENDER DO, AMPARO S Ot I25.10 ATHSCL HEART DISEASE OF [place] CORONARY 09/05/2016 ORENDER DO, AMPARO S Ot M50.30 OTHER CERVICAL DISC DEGENERATION, UNSP C 09/05/2016 ORENDER DO, AMPARO S Ot R51 HEADACHE 09/05/2016 ORENDER DO, AMPARO S Ot R53.83 OTHER FATIGUE 09/05/2016 CHELSEANDER DO, AMPARO S Ot R55 SYNCOPE AND COLLAPSE 09/05/2016 CHELSEANDER DO, AMPARO S Ot Z12.31 ENCNTR SCREEN MAMMOGRAM FOR MALIGNANT NE 09/05/2016 LENORA SOLOMON MAT INSPECTOR Ot R10.11 RIGHT UPPER QUADRANT PAIN 09/05/2016 LENORA SOLOMON MAT INSPECTOR Ot R11.0 NAUSEA 09/05/2016 LENORA SOLOMON MAT INSPECTOR Ot R19.7 DIARRHEA, UNSPECIFIED 09/05/2016 LENORA SOLOMON MAT INSPECTOR Ot R10.11 RIGHT UPPER QUADRANT PAIN 09/05/2016 LENORA SOLOMON MAT INSPECTOR Ot R19.5 OTHER FECAL ABNORMALITIES 09/05/2016 CHELSEANDER DO AMPARO S Ot R19.7 DIARRHEA, UNSPECIFIED 09/06/2016 LENORA SOLOMON MAT INSPECTOR Ot E55.9 VITAMIN D DEFICIENCY, UNSPECIFIED 09/06/2016 LENORA SOLOMON MAT INSPECTOR Ot E78.2 MIXED HYPERLIPIDEMIA 09/06/2016 LENORA SOLOMON MAT INSPECTOR Ot I10 ESSENTIAL (PRIMARY) HYPERTENSION 09/06/2016 LENORA SOLOMON MAT INSPECTOR Ot R73.01 IMPAIRED FASTING GLUCOSE 09/29/2016 LENORA SOLOMON MAT INSPECTOR Ot E55.9 VITAMIN D DEFICIENCY, UNSPECIFIED 09/29/2016 LENORA SOLOMON MAT INSPECTOR Ot E78.2 MIXED HYPERLIPIDEMIA 09/29/2016 NEHA, LENORA N MAT INSPECTOR Ot I10 ESSENTIAL (PRIMARY) HYPERTENSION 09/29/2016 LENORA SOLOMON MAT INSPECTOR Ot R73.01 IMPAIRED FASTING GLUCOSE 10/20/2016 LAURY MASSEY, AMPARO S Ot E78.5 HYPERLIPIDEMIA, UNSPECIFIED 10/20/2016 CHELSEANDRADHA MASSEY, AMPARO S Ot I25.10 ATHSCL HEART DISEASE OF [place] CORONARY 10/20/2016 LAURY MASSEY, AMPARO S Ot [...] AMPARO S Ot 414.01 CORONARY ATHEROSCLEROSIS OF [place] CORON 04/13/2017 LAURY MASSEY AMPARO S Ot [...] MAMMO-MALIGN NEOPLASM OF [place] 04/13/2017 ORENDER DO, APMARO S Ot 276.8 HYPOPOTASSEMIA 04/13/2017 ORENDER DO, AMPARO S Ot 241.1 NONTOX MULTINODUL GOITER 04/13/2017 XENIASONI JOE Roque RAJIV Ot 241.1 NONTOX MULTINODUL GOITER 04/13/2017 ORENDER DO, AMPARO S Ot E04.2 NONTOXIC MULTINODULAR GOITER 04/13/2017 ORENDER DO, AMPARO S Ot I25.10 ATHSCL HEART DISEASE OF [place] CORONARY 04/13/2017 ORENDER DO, AMPARO S Ot K13.0 DISEASES OF LIPS 04/13/2017 ORENDER DO, AMPARO S Ot R53.83 OTHER FATIGUE 04/13/2017 CHELSEANDER DO, AMPARO S Ot E04.1 NONTOXIC SINGLE THYROID NODULE 04/13/2017 CHELSEANDER DO, AMPARO S Ot E78.5 HYPERLIPIDEMIA, UNSPECIFIED 04/13/2017 ORENDER DO, AMPARO S Ot I25.10 ATHSCL HEART DISEASE OF [place] CORONARY 04/13/2017 ORENDER DO, AMPARO S Ot M50.30 OTHER CERVICAL DISC DEGENERATION, UNSP C 04/13/2017 ORENDER DO, AMPARO S Ot R51 HEADACHE 04/13/2017 ORENDER DO, AMPARO S Ot R53.83 OTHER FATIGUE 04/13/2017 ORENDER DO, AMPARO S Ot R55 SYNCOPE AND COLLAPSE 04/13/2017 CHELSEANDER DO, AMPARO S Ot Z12.31 ENCNTR SCREEN MAMMOGRAM FOR MALIGNANT NE 04/13/2017 LENORA SOLOMON MAT INSPECTOR Ot R10.11 RIGHT UPPER QUADRANT PAIN 04/13/2017 LENORA SOLOMON MAT INSPECTOR Ot R11.0 NAUSEA 04/13/2017 LENORA SOLOMON APRN Ot R19.7 DIARRHEA, UNSPECIFIED 04/13/2017 LENORA SOLOMON MAT INSPECTOR Ot R10.11 RIGHT UPPER QUADRANT PAIN 04/13/2017 LENORA SOLOMON MAT INSPECTOR Ot R19.5 OTHER FECAL ABNORMALITIES 04/13/2017 CHELSEANDER DO, AMPARO S Ot R19.7 DIARRHEA, UNSPECIFIED 04/13/2017 LENORA SOLOMON MAT INSPECTOR Ot E55.9 VITAMIN D DEFICIENCY, UNSPECIFIED 04/13/2017 LENORA SOLOMON MAT INSPECTOR Ot E78.2 MIXED HYPERLIPIDEMIA 04/13/2017 LENORA SOLOMON MAT INSPECTOR Ot I10 ESSENTIAL (PRIMARY) HYPERTENSION 04/13/2017 LENORA SOLOMON MAT INSPECTOR Ot R73.01 IMPAIRED FASTING GLUCOSE 04/13/2017 CHELSEANDER [...] S Ot I25.10 ATHSCL HEART DISEASE OF [place] CORONARY 06/08/2017 CHELSEANDER DO, AMPARO S Ot R53.82 CHRONIC FATIGUE, UNSPECIFIED 06/09/2017 CHELSEANDER DO, AMPARO S Ot M51.16 INTERVERTEBRAL DISC DISORDERS W RADICULO 06/28/2017 CHELSEANDER DO, AMPARO S Ot E04.2 NONTOXIC MULTINODULAR GOITER 06/28/2017 CHELSEANDER DOELIERAMPARO S Ot E55.9 VITAMIN D DEFICIENCY, UNSPECIFIED 06/28/2017 CHELSEANDER DO AMPARO S Ot I25.10 ATHSCL HEART DISEASE OF [place] CORONARY 06/28/2017 CHELSEANDER DO, AMPARO S Ot R53.82 CHRONIC FATIGUE, UNSPECIFIED 07/05/2017 ORENDER DO, AMPARO S Ot E04.2 NONTOXIC MULTINODULAR GOITER 07/05/2017 ORENDER DO, AMPARO S Ot E55.9 VITAMIN D DEFICIENCY, UNSPECIFIED 07/05/2017 ORENDER DO, AMPARO S Ot I25.10 ATHSCL HEART DISEASE OF [place] CORONARY 07/05/2017 CHELSEANDER DO, AMPARO S Ot R53.82 CHRONIC FATIGUE, UNSPECIFIED 07/09/2017 ORENDER DO, AMPARO S Ot M51.16 INTERVERTEBRAL DISC DISORDERS W RADICULO 07/25/2017 ORENDER DO, AMPARO S Ot M51.16 INTERVERTEBRAL DISC DISORDERS W RADICULO 12/26/2017 ORENDER DO, AMPARO S Ot E55.9 VITAMIN D DEFICIENCY, UNSPECIFIED 12/26/2017 ORENDER DO, AMPARO S Ot E78.2 MIXED HYPERLIPIDEMIA 12/26/2017 ORENDER DO, AMPAOR S Ot I10 ESSENTIAL (PRIMARY) HYPERTENSION 12/26/2017 ORENDER DO, AMPARO S Ot I25.10 ATHSCL HEART DISEASE OF [place] CORONARY 12/26/2017 CHELSEANDER DO, AMPARO S Ot E55.9 VITAMIN D DEFICIENCY, UNSPECIFIED 12/26/2017 ORENDER DO, AMPARO S Ot E78.2 MIXED HYPERLIPIDEMIA 12/26/2017 ORENDER DO, AMPARO S Ot I10 ESSENTIAL (PRIMARY) HYPERTENSION 12/26/2017 ORENDER DO, AMPARO S Ot I25.10 ATHSCL HEART DISEASE OF [place] CORONARY 01/15/2018 CHELSEANDER DO, AMPARO S Ot E55.9 VITAMIN D DEFICIENCY, UNSPECIFIED 01/15/2018 ORENDER DO, AMPARO S Ot E78.2 MIXED HYPERLIPIDEMIA 01/15/2018 ORENDER DO, AMPARO S Ot I10 ESSENTIAL (PRIMARY) HYPERTENSION 01/15/2018 ORENDER DO, AMPARO S Ot I25.10 ATHSCL HEART DISEASE OF [place] CORONARY 01/15/2018 MARIAM HERNADEZ, REX Jackson Ot K21.9 GASTRO-ESOPHAGEAL REFLUX DISEASE WITHOUT 01/15/2018 MARIAM HERNADEZ, REX Jackson Ot Z01.818 ENCOUNTER FOR OTHER PREPROCEDURAL EXAMIN 01/15/2018 REX BECERRA MD Ot Z12.11 ENCOUNTER FOR SCREENING FOR MALIGNANT NE 01/16/2018 MARIAM HERNADEZ, REX Jackson Ot K21.9 GASTRO-ESOPHAGEAL REFLUX DISEASE WITHOUT 01/16/2018 MARIAM HERNADEZ, REX Jackson Ot Z01.818 ENCOUNTER FOR OTHER PREPROCEDURAL EXAMIN 01/16/2018 MARIAM HERNADEZ, REX Jackson Ot Z12.11 ENCOUNTER FOR SCREENING FOR MALIGNANT NE 01/19/2018 CHELSEANDER DO, AMPARO S Ot 272.4 HYPERLIPIDEMIA NEC/NOS 01/19/2018 CHELSEANDER DO, AMPARO S Ot 414.01 CORONARY ATHEROSCLEROSIS OF [place] CORON 01/19/2018 CHELSEANDER DO, AMPARO S Ot 733.90 BONE CARTILAGE DIS NOS 01/19/2018 CHELSEANDER DO, AMPARO S Ot 780.79 OTH MALAISE FATIGUE 01/19/2018 CHELSEANDER DO, AMPARO S Ot V70.0 ROUTINE MEDICAL EXAM 01/19/2018 CHELSEANDER DO AMPARO S Ot 401.9 HYPERTENSION NOS 01/19/2018 CHELSEANDER DO, AMPARO S Ot 414.00 CORON ATHEROSCLER NOS TYPE VESSEL, NATIV 01/19/2018 CHELSEANDER DO, AMPARO S Ot 780.2 SYNCOPE AND COLLAPSE 01/19/2018 Ot 401.9 HYPERTENSION NOS 01/19/2018 Ot V76.12 OTH SCREEN MAMMO-MALIGN NEOPLASM OF [place] 01/19/2018 CHELSEANDER DO, AMPARO S Ot 276.8 HYPOPOTASSEMIA 01/19/2018 CHELSEANDER DO, AMPARO S Ot 241.1 NONTOX MULTINODUL GOITER 01/19/2018 JOE BINGHAM Ot 241.1 NONTOX MULTINODUL GOITER 01/19/2018 CHELSEANDER DO, AMPARO S Ot E04.2 NONTOXIC MULTINODULAR GOITER 01/19/2018 CHELSEANDER DO, AMPARO S Ot I25.10 ATHSCL HEART DISEASE OF [place] CORONARY 01/19/2018 CHELSEANDER DO, AMPARO S Ot K13.0 DISEASES OF LIPS 01/19/2018 CHELSEANDER DO, AMPARO S Ot R53.83 OTHER FATIGUE 01/19/2018 CHELSEANDER DO, AMPARO S Ot E04.1 NONTOXIC SINGLE THYROID NODULE 01/19/2018 CHELSEANDER DO, AMPARO S Ot E78.5 HYPERLIPIDEMIA, UNSPECIFIED 01/19/2018 ORENDER DO, AMPARO S Ot I25.10 ATHSCL HEART DISEASE OF [place] CORONARY 01/19/2018 ORENDER DO, AMPARO S Ot M50.30 OTHER CERVICAL DISC DEGENERATION, UNSP C 01/19/2018 ORENDER DO, AMPARO S Ot R51 HEADACHE 01/19/2018 ORENDER DO, AMPARO S Ot R53.83 OTHER FATIGUE 01/19/2018 ORENDER DO, AMPARO S Ot R55 SYNCOPE AND COLLAPSE 01/19/2018 ORENDER DO, AMPARO S Ot Z12.31 ENCNTR SCREEN MAMMOGRAM FOR MALIGNANT NE 01/19/2018 LENORA SOLOMON MAT INSPECTOR Ot R10.11 RIGHT UPPER QUADRANT PAIN 01/19/2018 LENORA SOLOMON MAT INSPECTOR Ot R11.0 NAUSEA 01/19/2018 LENORA SOLOMON MAT INSPECTOR Ot R19.7 DIARRHEA, UNSPECIFIED 01/19/2018 LENORA SOLOMON MAT INSPECTOR Ot R10.11 RIGHT UPPER QUADRANT PAIN 01/19/2018 LENORA SOLOMON MAT INSPECTOR Ot R19.5 OTHER FECAL ABNORMALITIES 01/19/2018 CHELSEANDER DO, AMPARO S Ot R19.7 DIARRHEA, UNSPECIFIED 01/19/2018 LENORA SOLOMON MAT INSPECTOR Ot E55.9 VITAMIN D DEFICIENCY, UNSPECIFIED 01/19/2018 LENORA SOLOMON MAT INSPECTOR Ot E78.2 MIXED HYPERLIPIDEMIA 01/19/2018 LENORA SOLOMON MAT INSPECTOR Ot I10 ESSENTIAL (PRIMARY) HYPERTENSION 01/19/2018 LENORA SOLOMON MAT INSPECTOR Ot R73.01 IMPAIRED FASTING GLUCOSE 01/19/2018 CHELSEANDER DO, AMPARO S Ot Z12.31 ENCNTR SCREEN MAMMOGRAM FOR MALIGNANT NE 01/19/2018 CHELSEANDER DO, AMPARO S Ot E04.2 NONTOXIC MULTINODULAR GOITER 01/19/2018 ORENDER DO, AMPARO S Ot E55.9 VITAMIN D DEFICIENCY, UNSPECIFIED 01/19/2018 ORENDER DO, AMPARO S Ot I25.10 ATHSCL HEART DISEASE OF [place] CORONARY 01/19/2018 ORENDER DO, AMPARO S Ot R53.82 CHRONIC FATIGUE, UNSPECIFIED 01/19/2018 ORENDER DO, AMPARO S Ot E55.9 VITAMIN D DEFICIENCY, UNSPECIFIED 01/19/2018 ORENDER DO, AMPARO S Ot E78.2 MIXED HYPERLIPIDEMIA 01/19/2018 ORENDER DO, AMPARO S Ot I10 ESSENTIAL (PRIMARY) HYPERTENSION 01/19/2018 ORENDER DO, AMPARO S Ot I25.10 ATHSCL HEART DISEASE OF [place] CORONARY 01/19/2018 REX BECERRA MD Ot I10 ESSENTIAL (PRIMARY) HYPERTENSION 01/19/2018 REX BECERRA MD Ot I25.10 ATHSCL HEART DISEASE OF [place] CORONARY 01/19/2018 REX BECERRA MD Ot K22.10 ULCER OF ESOPHAGUS WITHOUT BLEEDING 01/19/2018 REX BECERRA MD Ot K25.9 GASTRIC ULCER, UNSP ACUTE OR CHRONIC, 01/19/2018 REX BECERRA MD Ot K57.30 DVRTCLOS OF LG INT W/O PERFORATION OR AB 01/19/2018 REX BECERRA MD Ot K63.5 POLYP OF COLON 01/19/2018 REX BECERRA MD Ot Z12.11 ENCOUNTER FOR SCREENING FOR MALIGNANT NE 01/19/2018 REX BECERRA MD Ot Z79.02 NURSING HOME (CURRENT) USE OF ANTITHROMBOTI 01/19/2018 REX BECERRA MD Ot Z79.82 NURSING HOME (CURRENT) USE OF ASPIRIN 01/19/2018 REX BECERRA MD Ot Z95.5 PRESENCE OF CORONARY ANGIOPLASTY IMPLANT 01/23/2018 REX BECERRA MD Ot I10 ESSENTIAL (PRIMARY) HYPERTENSION 01/23/2018 REX BECERRA MD Ot I25.10 ATHSCL HEART DISEASE OF [place] CORONARY 01/23/2018 REX BECERRA MD Ot K22.10 ULCER OF ESOPHAGUS WITHOUT BLEEDING 01/23/2018 REX BECERRA MD Ot K25.9 GASTRIC ULCER, UNSP ACUTE OR CHRONIC, 01/23/2018 REX BECERRA MD Ot K57.30 DVRTCLOS OF LG INT W/O PERFORATION OR AB 01/23/2018 REX BECERRA MD Ot K63.5 POLYP OF COLON 01/23/2018 REX BECERRA MD Ot Z12.11 ENCOUNTER FOR SCREENING FOR MALIGNANT NE 01/23/2018 REX BECERRA MD Ot Z79.02 NURSING HOME (CURRENT) USE OF ANTITHROMBOTI 01/23/2018 REX BECERRA MD Ot Z79.82 NURSING HOME (CURRENT) USE OF ASPIRIN 01/23/2018 REX BECERRA MD Ot Z95.5 PRESENCE OF CORONARY ANGIOPLASTY IMPLANT Procedures There is no data. Results Test [...] Status Pt. Type Provider Facility Loc./Unit Complaint [id number] 03/29/2016 12:28:00 03/30/2016 08:47:00 DIS Outpatient Dagoberto HERNADEZ, [facility] E.CVLO [id number] 03/22/2016 08:04:00 03/22/2016 08:04:00 DIS Outpatient Mike HERNADEZ, [facility] E.RAC [id number] 07/20/2017 09:10:00 07/20/2017 23:59:59 CLS Out[facility] [id number] 03/15/2018 05:40:00 03/15/2018 11:08:00 DIS Outpatient REX BECERRA MD [facility] PREOP EGD [id number] 01/19/2018 07:14:00 01/19/2018 11:00:00 DIS Outpatient REX BECERRA MD [facility] ENDO SCREEENING/GERD [id number] 01/15/2018 06:09:00 01/15/2018 14:54:00 DIS Outpatient REX BECERRA MD [facility] PREOP COLONOSCOPY/EGD [id number] 12/24/2017 09:10:00 12/24/2017 23:59:59 CLS Outpatient AMPARO MOCTEZUMA DO S [facility] LAB E78.2,17.0,125.10 [id number] 06/30/2017 10:21:00 07/25/2017 16:12:00 DIS Outpatient AMPARO MOCTEZUMA DO S [facility] REHAB LUMBAR DEG DISC DISEASE; R LEG SCIATICA [id number] 06/07/2017 08:31:00 06/07/2017 23:59:59 CLS Outpatient AMPARO MOCTEZUMA DO S [facility] RAD BILATERAL THRYOID NODULES [id number] 04/19/2017 10:59:00 04/19/2017 23:59:59 CLS Outpatient JENISE MOCTEZUMA DOLINE S [facility] RAD 3D MAMMO SCREENING [id number] 09/05/2016 08:35:00 09/05/2016 23:59:59 CLS Outpatient LENORA SOLOMON APRN [facility] LAB ESSENTIAL HYPERTENSION,MIXED HYPERLIPIDEMIA [id number] 05/18/2016 12:12:00 05/18/2016 23:59:59 CLS Outpatient AMPARO MOCTEZUMA DO S [facility] LAB DIARRHEA [id number] 05/04/2016 14:06:00 05/04/2016 23:59:59 CLS Outpatient LENORA SOLOMON MAT INSPECTOR [facility] LAB RUQ PAIN,CHANGE IN STOOL [id number] 04/27/2016 09:13:00 04/27/2016 23:59:59 CLS Outpatient LENORA SOLOMON APRN [facility] RAD GENERALZAED ABD PAIN, RUQ PAIN,DIARRHEA [id number] 02/25/2016 08:54:00 02/25/2016 23:59:59 CLS Outpatient LAURY DO AMPARO S [facility] RAD SYNCOPE,WEAKNESS, CAD,FATIGUE,HLP,SCREENING [id number] 07/10/2015 14:22:00 07/10/2015 23:59:59 CLS Outpatient LAURY DO AMPARO S [facility] RAD THYROID NODULES [id number] 07/06/2015 08:14:00 07/06/2015 23:59:59 CLS Outpatient LAURY DO AMPARO S [facility] LAB THYROID NODULES,CAD ,FATIGUE [id number] 11/20/2014 10:38:00 11/20/2014 23:59:59 CLS Outpatient JOE BINGHAM [facility] CARD MULTI NODULAR THYROID [id number] 11/12/2014 12:37:00 11/12/2014 23:59:59 CLS Outpatient COLINRADHA MASSEY AMPARO S [facility] RAD THYROID NODULES [id number] 11/07/2014 13:22:00 11/07/2014 23:59:59 CLS Outpatient LAURY DO AMPARO S [facility] LAB HYPOKALCEMIA [id number] 01/27/2014 06:37:00 01/27/2014 23:59:59 CLS Outpatient LAURY MASSEY AMPARO S [facility] LAB YEARLY LABS,HLP,CAD ,FATIGUE,OSETOPENIA [id number] 02/16/2013 07:55:00 02/16/2013 23:59:59 CLS Outpatient CHELSEAWILLAMELIER GARCIA DOQUELINE S [facility] LAB HYPERTENSION HEART DISEASE SYNCOPE AND COLLAPSE [id number] 03/16/2018 08:12:00 ACT Outpatient MARIAM HERNADEZ, REX Jackson [facility] ENDO F/U GASTRIC ULCER [id number] 09/05/2014 07:07:00 Document Registration 08/06/13 12/26/2017 15:06:01 12/26/2017 23:59:59 [facility] Outpatient Amparo Moctezuma
[2018-03-16 08:20] VITALS: BP 116/62
[2018-03-16] MEDS ORDERED: D5 LR IV SOLUTION 1,000 ML IV STA (08:24)
[2018-03-16] MEDS ORDERED: LIDOCAINE JELLY 2% (XYLOCAINE) 5 ML TUBE MM PRN (08:30)
[2018-03-16] MEDS ORDERED: fentaNYL INJECTION 100 MCG/2 ML AMP IVP ONE (08:30)
[2018-03-16] MEDS ORDERED: MIDAZOLAM 2 MG/2 ML (VERSED) VIAL IVP ONE (08:30)
[2018-03-16] MEDS ORDERED: HURRICAINE EXT TUBE (BENZOCAINE) XX PRN (08:30)
--- NOTE | 2018-03-16 09:52 | Pre-Op Note & Conscious Sedat ---
Pre-Operative Progress Note H&P Reviewed The H&P was reviewed, patient examined and no changes noted. Date H&P Reviewed: Mar 16, 2018 Time H&P Reviewed: 09:51 Conscious Sedation Pre-Proced ASA Class: 2 Airway Mallampati Classification: ([place] appropriate class) I. II. III, IV Lungs Heart ASA score ASA 1: a normal healthy patient ASA 2: a patient with a mild systemic disease (mid diabetes, controlled hypertension, obesity ASA 3: a patient with a severe systemic disease that limits activity (angina , COPD, prior Myocardial infarction) ASA 4: a patient with an incapacitating disease that is a constant threat to life (CHF, renal failure) ASA 5: a moribund patient not expected to survive 24 hrs. (ruptured aneurysm) ASA 6: a declared brain patient whose organs are being harvested. For emergent operations, add the letter E after the classification Grade 2 Sedation Plan: Analgesia, Amnesia, Plan communicated to team members, Discussed options with patient/fam, Discussed risks with patient/fam Note The patient is an appropriate candidate to undergo the planned procedure, sedation, and anesthesia. The patient immediately re-assessed prior to indication. REX BECERRA MD Mar 16, 2018 09:52
[2018-03-16] MEDS ORDERED: fentaNYL INJECTION 100 MCG/2 ML AMP ONE (10:50)
[2018-03-16] MEDS ORDERED: HURRICAINE EXT TUBE (BENZOCAINE) ONE (10:50)
[2018-03-16] MEDS ORDERED: MIDAZOLAM 2 MG/2 ML (VERSED) VIAL ONE ×3 (10:50)
[2018-03-16] MEDS ORDERED: LIDOCAINE JELLY 2% (XYLOCAINE) 5 ML TUBE ONE (10:50)
[2018-03-16] MEDS ORDERED: PANT40TA3 PO (11:28)
[2018-03-16 11:45] VITALS: BP 112/57
[2018-03-16 12:05] VITALS: BP 113/60
[2018-03-16 13:25] VITALS: BP 113/60
--- NOTE | 2018-03-16 17:14 | OPERATIVE REPORT ---
DATE OF SERVICE: 03/16/2018 EGD SUMMARY INDICATION FOR THE PROCEDURE: Surveillance EGD followup of previous gastric ulcer. The patient was placed in the left lateral decubitus position. The endoscope was inserted in the oral cavity and under direct visualization, the esophagus was intubated. The endoscope was passed down the esophagus, stomach and second portion of the duodenum. Careful inspection was made as the endoscope was withdrawn. The patient tolerated the procedure well. FINDINGS: Proximal and mid esophagus were unremarkable. Again noted at the level of the GE junction were several linear ulcers without evidence for stricture formation or gross evidence to suggest Lloyd's change. They were benign in appearance, essentially unchanged from previous endoscopy 2 months ago. Again noted was an intact area of gastric stapling. The previous marginal gastric ulcer has healed in its entirety, compatible with a benign process noted in the cardia of the stomach just proximal to the area of gastric stapling. I was able to easily get beyond the area of stapling with the remainder of the EGD involving stomach, duodenal bulb and second portion of the duodenum being unremarkable. A/P: 1. Previous gastric ulceration at the border of the cardia and proximal fundus of the stomach has healed indicative of benign process. 2. The patient still has erosive esophagitis. She had been switched back to Pepcid, which is not going to be adequate. Due to this patient's gastric stapling and today's findings, she is going to require lifelong proton pump inhibitor therapy. I sent out another prescription for pantoprazole 40 mg daily and she was instructed to resume her Plavix. We just advised future EGD for uncontrolled reflux symptoms or dysphagia as she has had no evidence for Lloyd's change to gross inspection or on recent esophageal biopsies. I thank you for the referral. Sincerely, Job ID: [id number] DocumentID: [id number] Dictated Date: 03/16/2018 11:33:58 Smoking Pipe [employer]ater Date: 03/16/2018 17:13:48 Dictated By: REX BECERRA MD [facility]
== END 2018-03-16 12:15 | disposition home or self-care (01) ==
LOC: ENDO 08:12
PROVIDERS: ATTEND Internal Medicine
DX: Z08 Encounter for follow-up examination after completed treatment for malignant neoplasm (principal); K20.8 Other esophagitis; Z87.11 Personal history of peptic ulcer disease; I10 Essential (primary) hypertension; Z86.73 Personal history of transient ischemic attack (TIA), and cerebral infarction without residual deficits; Z98.84 Bariatric surgery status; Z79.02 Long term (current) use of antithrombotics/antiplatelets; Z79.899 Other long term (current) drug therapy

== ENCOUNTER → 2018-04-20 | Outpatient (CLI) | payer MEDICARE, OTHER ==
--- NOTE | 2018-04-20 13:21 | Diagnostic Imaging Report ---
INDICATION: Routine screening. Comparison is made with prior mammogram from 04/19/2017 and 02/25/2016. 2-D and 3-D bilateral screening mammography was performed with CAD. The current study was also evaluated with a Computer Aided Detection (CAD) system. FINDINGS: Scattered fibroglandular densities are identified bilaterally. There are benign-appearing calcifications scattered throughout both breasts. No dominant mass or malignant-appearing microcalcifications are seen. The axillae are unremarkable. IMPRESSION: No mammographic features suspicious for malignancy are identified. ACR BI-RADS Category 2: Benign findings. Result letter will be mailed to the patient. Note: At least 10% of breast cancer is not imaged by mammography. Dictated by: Dictated on workstation # [id number]
== END ==
LOC: RAD 08:57
PROVIDERS: ATTEND Nurse Practitioner Family
DX: Z12.31 Encounter for screening mammogram for malignant neoplasm of breast (principal)
CPT/HCPCS: 77067

== ENCOUNTER → 2018-11-08 | Outpatient (CLI) | payer MEDICARE ==
[2018-11-08 08:15] LABS: FREE T4 (FREE THYROXINE) 0.86 NG/DL (0.70-1.48)
== END ==
LOC: LAB 07:16
PROVIDERS: ATTEND Family Medicine
DX: E04.1 Nontoxic single thyroid nodule (principal); R53.83 Other fatigue
CPT/HCPCS: 36415; 84439; 84443

== ENCOUNTER → 2019-03-28 | Outpatient (CLI) | payer MEDICARE ==
[2019-03-28 10:26] LABS: BASOPHILS % (AUTO) 0 % (0-10); EOSINOPHILS # (AUTO) 0.1 10^3/uL (0.0-0.3); EOSINOPHILS % (AUTO) 2 % (0-10); HEMATOCRIT 43 % (35-52); HEMOGLOBIN 14.6 G/DL (11.5-16.0); LYMPHOCYTES # (AUTO) 1.6 X 10^3 (1.0-4.0); LYMPHOCYTES % (AUTO) 22 % (12-44); MEAN CORPUSCULAR HEMOGLOBIN 30 PG (25-34); MEAN CORPUSCULAR HGB CONC 34 G/DL (32-36); MEAN CORPUSCULAR VOLUME 89 FL (80-99); MEAN PLATELET VOLUME 9.1 FL (7.4-10.4); MONOCYTES # (AUTO) 0.8 X 10^3 (0.0-1.0); MONOCYTES % (AUTO) 11 % (0-12); NEUTROPHILS # (AUTO) 4.7 X 10^3 (1.8-7.8); NEUTROPHILS % (AUTO) 66 % (42-75); PLATELET COUNT 295 10^3/uL (130-400); RED CELL DISTRIBUTION WIDTH 13.6 % (10.0-14.5); WHITE BLOOD COUNT 7.2 10^3/uL (4.3-11.0)
[2019-03-28 10:45] LABS: ALANINE AMINOTRANSFERASE 14 U/L (0-55); ALBUMIN 4.6 GM/DL (3.2-4.5); ALKALINE PHOSPHATASE 97 U/L (40-136); BILIRUBIN,TOTAL 0.6 MG/DL (0.1-1.0); BUN/CREATININE RATIO 27; CARBON DIOXIDE 28 MMOL/L (21-32); CHLORIDE 104 MMOL/L (98-107); CHOLESTEROL 130 MG/DL (< 200); CREATININE SERUM 0.86 MG/DL (0.60-1.30); GFR ESTIMATED > 60; GLUCOSE 89 MG/DL (70-105); HDL CHOLESTEROL 50 MG/DL (40-60); POTASSIUM 3.9 MMOL/L (3.6-5.0); SODIUM 139 MMOL/L (135-145); TOTAL PROTEIN 7.7 GM/DL (6.4-8.2); TRIGLYCERIDES 83 MG/DL (<150); VLDL CHOLESTEROL 17 MG/DL (5-40)
[2019-03-28 10:50] LABS: ERYTHROCYTE SEDIMENTATION RATE 11 MM/HR (0-30)
[2019-03-28 11:07] LABS: FREE T4 (FREE THYROXINE) 0.86 NG/DL (0.70-1.48)
== END ==
LOC: LAB 10:09
PROVIDERS: ATTEND Family Medicine
DX: I10 Essential (primary) hypertension (principal); E16.2 Hypoglycemia, unspecified; E78.5 Hyperlipidemia, unspecified; R42 Dizziness and giddiness; R53.83 Other fatigue
CPT/HCPCS: 36415; 80053; 80061; 83036; 84439; 84443; 85025; 85652

== ENCOUNTER → 2019-05-17 | Outpatient (CLI) | payer MEDICARE, OTHER ==
--- NOTE | 2019-05-17 12:47 | Diagnostic Imaging Report ---
INDICATION: Routine screening. Comparison is made with prior mammogram 04/20/2018 and 04/19/2017. 2-D and 3-D bilateral screening mammography was performed with CAD. Scattered fibroglandular densities are identified bilaterally. Scattered benign calcifications are noted bilaterally. No mass or malignant-appearing microcalcifications are seen. Axillae are unremarkable. IMPRESSION: BI-RADS Category 2 No mammographic features suspicious for malignancy are identified. ACR BI-RADS Category 0: Incomplete. (Needs additional imaging evaluation). Result letter will be mailed to the patient. Note: At least 10% of breast cancer is not imaged by mammography. Dictated by: Dictated on workstation # [id number]
== END ==
LOC: RAD 10:11
PROVIDERS: ATTEND Family Medicine
DX: Z12.31 Encounter for screening mammogram for malignant neoplasm of breast (principal)
CPT/HCPCS: 77067

== ENCOUNTER → 2019-11-26 | Outpatient (CLI) | payer MEDICARE, OTHER ==
[~2019-11-26] MED LIST changes: -TRAM50TA2 PO; +TRM50T PO
[2019-11-26 07:50] LABS: BASOPHILS % (AUTO) 0 % (0-10); EOSINOPHILS # (AUTO) 0.1 10^3/uL (0.0-0.3); EOSINOPHILS % (AUTO) 2 % (0-10); HEMATOCRIT 42 % (35-52); HEMOGLOBIN 14.3 G/DL (11.5-16.0); LYMPHOCYTES # (AUTO) 1.7 X 10^3 (1.0-4.0); LYMPHOCYTES % (AUTO) 29 % (12-44); MEAN CORPUSCULAR HEMOGLOBIN 29 PG (25-34); MEAN CORPUSCULAR HGB CONC 34 G/DL (32-36); MEAN CORPUSCULAR VOLUME 86 FL (80-99); MEAN PLATELET VOLUME 9.8 FL (7.4-10.4); MONOCYTES # (AUTO) 0.6 X 10^3 (0.0-1.0); MONOCYTES % (AUTO) 11 % (0-12); NEUTROPHILS # (AUTO) 3.3 X 10^3 (1.8-7.8); NEUTROPHILS % (AUTO) 57 % (42-75); PLATELET COUNT 286 10^3/uL (130-400); RED CELL DISTRIBUTION WIDTH 14.3 % (10.0-14.5); WHITE BLOOD COUNT 5.8 10^3/uL (4.3-11.0)
[2019-11-26 07:58] LABS: POTASSIUM 3.9 MMOL/L (3.6-5.0)
[2019-11-26 07:59] LABS: ALBUMIN 4.3 GM/DL (3.2-4.5)
[2019-11-26 08:00] LABS: CALCIUM 9.8 MG/DL (8.5-10.1)
[2019-11-26 08:01] LABS: TOTAL PROTEIN 7.6 GM/DL (6.4-8.2)
[2019-11-26 08:03] LABS: BILIRUBIN,TOTAL 0.4 MG/DL (0.1-1.0)
[2019-11-26 08:04] LABS: CREATININE SERUM 1.07 MG/DL (0.60-1.30)
--- NOTE | 2019-11-26 10:21 | Diagnostic Imaging Report ---
INDICATION: Thyroid nodules, followup. TECHNIQUE: Grayscale sonographic images of the thyroid gland. CORRELATION STUDY: 06/07/2017. FINDINGS: RIGHT LOBE: 3.6 x 1.6 x 1.6 cm. Two nodules are present within the right lobe. One superiorly measures 13 x 11 x 7 mm, previously 12 x 11 x 10 mm. An additional one at the inferior pole currently measures 13 x 9 x 7 mm, previously 12 x 8 x 7 mm. These appear generally stable. LEFT LOBE: 3.5 x 1.2 x 1.0 cm. A small subcentimeter nodule superiorly currently measures 7 x 7 x 5 mm, previously 7 x 7 x 8 mm. The isthmus appears unremarkable. IMPRESSION: Bilateral thyroid nodules are again demonstrated and are overall without significant adverse interval change. (Normal gland size: 4-5 x 2 x 2 cm) Dictated by: Dictated on workstation # [id number]
== END ==
LOC: RAD 07:26
PROVIDERS: ATTEND Family Medicine
DX: E04.2 Nontoxic multinodular goiter (principal); E78.5 Hyperlipidemia, unspecified; I10 Essential (primary) hypertension
CPT/HCPCS: 36415; 76536; 80053; 80061; 84443; 85025

== ENCOUNTER → 2020-05-21 | Outpatient (CLI) | payer MEDICARE, OTHER ==
[~2020-05-21] MED LIST changes: -PANT40TA3 PO; +PANT40TA52 PO
--- NOTE | 2020-05-21 16:20 | Diagnostic Imaging Report ---
INDICATION: Routine screening. COMPARISON: Prior mammogram from 05/17/2019 and 04/20/2018. EXAMINATION: 2D and 3D bilateral screening mammography was performed with CAD. 3D tomographic images were obtained and reviewed. The current study was also evaluated with a Computer Aided Detection (CAD) system. FINDINGS: Scattered fibroglandular densities are identified, bilaterally. Scattered benign-appearing calcifications are noted, bilaterally. No dominant mass or malignant appearing microcalcification is seen. There appears to be a benign nodule in the upper outer left breast. Axillae are unremarkable. IMPRESSION: No mammographic feature suspicious for malignancy is identified. ACR BI-RADS Category 2: Benign findings. Result letter will be mailed to the patient. Note: At least 10% of breast cancer is not imaged by mammography. Dictated by: Dictated on workstation # [id number]
== END ==
LOC: RAD 09:19
PROVIDERS: ATTEND Family Medicine
DX: Z12.31 Encounter for screening mammogram for malignant neoplasm of breast (principal)
CPT/HCPCS: 77063; 77067

== ENCOUNTER → 2020-09-18 | Outpatient (CLI) | payer MEDICARE, OTHER ==
[2020-09-18 10:47] LABS: BASOPHILS % (AUTO) 0 % (0-10); EOSINOPHILS # (AUTO) 0.1 10^3/uL (0.0-0.3); EOSINOPHILS % (AUTO) 1 % (0-10); HEMATOCRIT 45 % (35-52); HEMOGLOBIN 14.9 g/dL (11.5-16.0); LYMPHOCYTES # (AUTO) 1.3 10^3/uL (1.0-4.0); LYMPHOCYTES % (AUTO) 25 % (12-44); MEAN CORPUSCULAR HEMOGLOBIN 29 pg (25-34); MEAN CORPUSCULAR HGB CONC 33 g/dL (32-36); MEAN CORPUSCULAR VOLUME 89 fL (80-99); MEAN PLATELET VOLUME 8.9 fL (9.0-12.2); MONOCYTES # (AUTO) 0.5 10^3/uL (0.0-1.0); MONOCYTES % (AUTO) 9 % (0-12); NEUTROPHILS # (AUTO) 3.3 10^3/uL (1.8-7.8); NEUTROPHILS % (AUTO) 64 % (42-75); PLATELET COUNT 259 10^3/uL (130-400); WHITE BLOOD COUNT 5.2 10^3/uL (4.3-11.0)
[2020-09-18 11:16] LABS: ALANINE AMINOTRANSFERASE 19 U/L (0-55); ALBUMIN 4.2 GM/DL (3.2-4.5); ALKALINE PHOSPHATASE 96 U/L (40-136); BILIRUBIN,TOTAL 0.6 MG/DL (0.1-1.0); BUN/CREATININE RATIO 23; CALCIUM 9.3 MG/DL (8.5-10.1); CARBON DIOXIDE 27 MMOL/L (21-32); CHLORIDE 103 MMOL/L (98-107); CHOLESTEROL 147 MG/DL (< 200); CREATININE SERUM 0.81 MG/DL (0.60-1.30); GFR ESTIMATED > 60; GLUCOSE 88 MG/DL (70-105); HDL CHOLESTEROL 53 MG/DL (40-60); SODIUM 140 MMOL/L (135-145); TOTAL PROTEIN 7.1 GM/DL (6.4-8.2); TRIGLYCERIDES 110 MG/DL (<150); VLDL CHOLESTEROL 22 MG/DL (5-40)
[2020-09-18 11:38] LABS: FREE T4 (FREE THYROXINE) 0.88 NG/DL (0.70-1.48)
== END ==
LOC: LAB 10:14
PROVIDERS: ATTEND Family Medicine
DX: Z00.00 Encounter for general adult medical examination without abnormal findings (principal); E78.5 Hyperlipidemia, unspecified; I10 Essential (primary) hypertension; R53.83 Other fatigue
CPT/HCPCS: 36415; 80053; 80061; 84439; 84443; 85025

== ENCOUNTER 2020-10-04 12:43 | Emergency (ER) | payer MEDICARE, OTHER ==
[~2020-10-04] VITALS: Ht 165 cm; Wt 70.0 kg
--- NOTE | 2020-10-04 12:59 | ED Head Injury ---
General Chief Complaint: Head/Cervical Problems Stated Complaint: FALL 09/28, HIT HEAD, HEADACHES Source: patient Exam Limitations: no limitations History of Present Illness Date Seen by Provider: Oct 04, 2020 Time Seen by Provider: 12:55 Initial Comments To ER by private vehicle with reports of a worsening headache since she fell striking the left cheek on the ground after tripping on 09/28/2020. No nausea or vomiting. She does have some dizziness but she did have a dizziness before the fall. She has some balance troubles but she states she also had those before the fall. She is on Plavix. Occurred: last week Severity: moderate Location: frontal Loss of Consciousness: no loss of consciousness Associated Systoms: Weakness Allergies and Home Medications Allergies Coded Allergies: No Known Drug Allergies (Unverified , 02/25/16) Home Medications Atorvastatin Calcium 10 Mg Tablet, 10 MG PO HS, (Reported) Cholecalciferol (Vitamin D3) 5,000 Unit Capsule, 5,000 UNIT PO DAILY, (Reported) Fluoxetine HCl 40 Mg Capsule, 40 MG PO DAILY, (Reported) Melatonin/Pyridoxine HCl (B6) 1 Each Tab.mphase, 1 EACH PO HS, (Reported) Pantoprazole Sodium 40 Mg Tablet.dr, 40 MG PO DAILY Prescribed by: REX BECERRA on 03/16/18 1128 Potassium Chloride 8 Meq Tablet.er, 8 MEQ PO DAILY, (Reported) Tramadol HCl 50 Mg Tablet, 50 MG PO BID PRN for PAIN-MODERATE, (Reported) Valsartan/Hydrochlorothiazide 1 Each Tablet, 1 EACH PO DAILY, (Reported) Patient Home Medication List Home Medication List Reviewed: Yes Review of Systems Review of Systems Constitutional: see HPI Eyes: No Symptoms Reported Ears, Nose, Mouth, Throat: no symptoms reported Respiratory: no symptoms reported Cardiovascular: no symptoms reported Genitourinary: no symptoms reported Musculoskeletal: no symptoms reported Skin: no symptoms reported Psychiatric/Neurological: See HPI, Headache Past Tyntqje-Knfnip-Azsyfi Hx Patient Social History Recent Hopitalizations: No Immunizations Up To Date Date of Pneumonia Vaccine: Apr 17, 2017 Date of Influenza Vaccine: Apr 17, 2017 Seasonal Allergies Seasonal Allergies: No Past Medical History Section, Tonsillectomy Coronary Artery Disease, High Cholesterol, Hypertension Reproductive Disorders: No Sexually Transmitted Disease: No HIV/AIDS: No Gastroesophageal Reflux Chronic Back Pain Loss of Vision: Bilateral Hearing Impairment: Hard of Hearing Adverse Reaction/Blood Tranf: No (N/A) Physical Exam Vital Signs Vital Signs - First Documented 10/04/20 12:50 Temp 36.5 Pulse 76 Resp 18 B/P (MAP) 182/79 (113) Pulse Ox 98 O2 Delivery Room Air Capillary Refill : Height, Weight, BMI Height: 5'5.00" Weight: 160lbs. 0.0oz. [id number]; 26.6 BMI Method: General Appearance: WD/WN, no apparent distress HEENT: PERRL/EOMI, TMs normal, other (there is some left periorbital ecchymosi s, purplish to yellow in color. EOMI, no hyphema, no subconjunctival hemorrhage. ) Neck: non-tender, full range of motion Respiratory: lungs clear, normal breath sounds, no respiratory distress, no accessory muscle use Gastrointestinal: normal bowel sounds, non tender, soft Extremities: normal range of motion, non-tender Psychiatric: alert, oriented x 3 Crainal Nerves: normal hearing, normal speech Coordination/Gait: normal finger to nose Motor/Sensory: no motor deficit, no sensory deficit Skin: normal color, warm/dry [place] Coma Score Best Eye Response: (4) Open Spontaneously Best Verbal Response: (5) Oriented Best Motor Response: (6) Obeys Commands [place] Total: 15 Progress/Results/Core Measures Results/Orders My Orders Orders - POPEYE CASTRO APRN Ct Head/Cervical Spine Wo (10/04/20 12:52) Vital Signs/I&O 10/04/20 12:50 Temp 36.5 Pulse 76 Resp 18 B/P (MAP) 182/79 (113) Pulse Ox 98 O2 Delivery Room Air Diagnostic Imaging Diagonstic Imaging: CT Comments NAME: MELVI HAY [facility] REC#: [id number] PT STATUS: REG ER : 1945 PHYSICIAN: POPEYE CASTRO APRN ADMIT DATE: 10/04/20/ER Draft Date of Exam:10/04/20 CT HEAD/CERVICAL SPINE WO EXAMINATION: CT head and CT cervical spine without contrast. TECHNIQUE: Multiple contiguous axial images were obtained through the brain and cervical spine without the use of intravenous contrast. Sagittal and coronal reformations through the cervical spine were then performed. All CT scans use one or more of the following dose optimizing techniques: automated exposure control, MA and/or KvP adjustment based on a patient size and exam type, or iterative reconstruction. HISTORY: Fall. COMPARISON: 10/06/2009. FINDINGS: The copeland-white matter differentiation is normal. No mass effect or midline shift. The ventricles are normal in size and configuration. Basilar cisterns are patent. There are no intra- or extra-axial fluid collections. There is no intracranial hemorrhage. Periventricular white matter hypoattenuation is in keeping with chronic small vessel ischemic changes. The orbits are normal. Paranasal sinuses are normal. Mastoid air cells are clear. No soft tissue abnormality is seen. No osseus lesions or fractures are seen. The alignment of the cervical spine is normal. No fracture is seen. Vertebral body heights are normal. The craniocervical junction is normal. There is instrumented anterior fusion of C3 through C7. There is posterior fusion of C5 through C7 bilaterally. No traumatic malalignment is seen. No fracture is seen. No soft tissue abnormality is seen in the neck. Limited views of the superior thorax are normal. IMPRESSION: 1. No acute intracranial abnormality. 2. No cervical spine fracture. Dictated on workstation # [id number] Dict: 10/04/20 1316 Trans: 10/04/20 1338 AS6 [id number] Interpreted by: XOCHITL MENDEZ MD Electronically signed by: Departure Communication (Admissions) Family Conversation NAME: MELVI HAY [facility] REC#: [id number] PT STATUS: REG ER : 1945 PHYSICIAN: POPEYE CASTRO APRN ADMIT DATE: 10/04/20/ER Draft Date of Exam:10/04/20 CT HEAD/CERVICAL SPINE WO EXAMINATION: CT head and CT cervical spine without contrast. TECHNIQUE: Multiple contiguous axial images were obtained through the brain and cervical spine without the use of intravenous contrast. Sagittal and coronal reformations through the cervical spine were then performed. All CT scans use one or more of the following dose optimizing techniques: automated exposure control, MA and/or KvP adjustment based on a patient size and exam type, or iterative reconstruction. HISTORY: Fall. COMPARISON: 10/06/2009. FINDINGS: The copeland-white matter differentiation is normal. No mass effect or midline shift. The ventricles are normal in size and configuration. Basilar cisterns are patent. There are no intra- or extra-axial fluid collections. There is no intracranial hemorrhage. Periventricular white matter hypoattenuation is in keeping with chronic small vessel ischemic changes. The orbits are normal. Paranasal sinuses are normal. Mastoid air cells are clear. No soft tissue abnormality is seen. No osseus lesions or fractures are seen. The alignment of the cervical spine is normal. No fracture is seen. Vertebral body heights are normal. The craniocervical junction is normal. There is instrumented anterior fusion of C3 through C7. There is posterior fusion of C5 through C7 bilaterally. No traumatic malalignment is seen. No fracture is seen. No soft tissue abnormality is seen in the neck. Limited views of the superior thorax are normal. IMPRESSION: 1. No acute intracranial abnormality. 2. No cervical spine fracture. Dictated on workstation # [id number] Dict: 10/04/20 1316 Trans: 10/04/20 1338 AS6 [id number] Interpreted by: XOCHITL MENDEZ MD Electronically signed by: Impression Primary Impression: Brain concussion Disposition: ADMITTED INPATIENT Condition: Stable Departure-Patient Inst. Decision time for Depature: 13:46 Referrals: LUIS SCHAEFFER DO (PCP/Family) Primary Care Physician Patient Instructions: Concussion in Adults Add. Discharge Instructions: . Things like watching TV, reading a book and prolong recovery from concussions. Unfortunately the symptoms of nausea headaches dizziness Can persist for a couple of weeks. You can use Tylenol and ibuprofen for pain control, I will prescribe some nausea. All discharge instructions reviewed with patient and/or family. Voiced understanding. Scripts Ondansetron (Ondansetron Odt) 8 Mg Tab.rapdis 8 MG PO Q6H PRN for NAUSEA/VOMITING, #10 TAB Prov: POPEYE CASTRO APRN 10/04/20 Copy Copies To 1: LUIS SCHAEFFER PETER J W[employer]ER [employer] WORK[employer] Oct 04, 2020 12:59
--- NOTE | 2020-10-04 13:39 | Diagnostic Imaging Report ---
EXAMINATION: CT head and CT cervical spine without contrast. TECHNIQUE: Multiple contiguous axial images were obtained through the brain and cervical spine without the use of intravenous contrast. Sagittal and coronal reformations through the cervical spine were then performed. All CT scans use one or more of the following dose optimizing techniques: automated exposure control, MA and/or KvP adjustment based on a patient size and exam type, or iterative reconstruction. HISTORY: Fall. COMPARISON: 10/06/2009. FINDINGS: The copeland-white matter differentiation is normal. No mass effect or midline shift. The ventricles are normal in size and configuration. Basilar cisterns are patent. There are no intra- or extra-axial fluid collections. There is no intracranial hemorrhage. Periventricular white matter hypoattenuation is in keeping with chronic small vessel ischemic changes. The orbits are normal. Paranasal sinuses are normal. Mastoid air cells are clear. No soft tissue abnormality is seen. No osseus lesions or fractures are seen. The alignment of the cervical spine is normal. No fracture is seen. Vertebral body heights are normal. The craniocervical junction is normal. There is instrumented anterior fusion of C3 through C7. There is posterior fusion of C5 through C7 bilaterally. No traumatic malalignment is seen. No fracture is seen. No soft tissue abnormality is seen in the neck. Limited views of the superior thorax are normal. IMPRESSION: 1. No acute intracranial abnormality. 2. No cervical spine fracture. Dictated by: Dictated on workstation # [id number]
[2020-10-04 14:04] VITALS: BP 159/84
[2020-10-04] MEDS ORDERED: ONDA8TAB13 PO (14:07)
== END 2020-10-04 14:04 | disposition other institution (70) ==
LOC: EDUNIT# 12:43 → ER 12:45
DX: S06.0X9A Concussion with loss of consciousness of unspecified duration, initial encounter (principal); I10 Essential (primary) hypertension; I25.10 Atherosclerotic heart disease of native coronary artery without angina pectoris; K21.9 Gastro-esophageal reflux disease without esophagitis; E78.00 Pure hypercholesterolemia, unspecified; R40.2360 Coma scale, best motor response, obeys commands, unspecified time; R40.2140 Coma scale, eyes open, spontaneous, unspecified time; R40.2250 Coma scale, best verbal response, oriented, unspecified time; Z79.2 Long term (current) use of antibiotics; W01.198A Fall on same level from slipping, tripping and stumbling with subsequent striking against other object, initial encounter
CPT/HCPCS: 70450; 72125

== ENCOUNTER → 2020-11-02 | Outpatient (CLI) | payer MEDICARE, OTHER ==
[~2020-11-02] MED LIST changes: +ONDA8TAB13 PO
--- NOTE | 2020-11-02 12:11 | Diagnostic Imaging Report ---
PROCEDURE: US carotid duplex, bilateral. TECHNIQUE: Multiple real-time grayscale images were obtained over the carotid arteries in various projections, bilaterally. Additional spectral analysis and color Doppler duplex images were also obtained. INDICATION: Carotid stenosis COMPARISON: Carotid ultrasound of 01/07/2011 FINDINGS: Right carotid circulation: The right common carotid artery is normal in caliber, and there is no significant stenosis. Peak systolic velocity in the right common carotid artery is 94 cm/sec. There is no atherosclerotic plaque or narrowing in the carotid bulb or proximal ICA. The peak systolic velocity in the proximal internal carotid artery is 103 cm/sec. Proximal aspect of the external carotid artery is patent with expected high resistance waveforms, and peak systolic velocity of 107 cm/sec. Left carotid circulation: The left common carotid artery is normal in caliber, and there is no significant stenosis. Peak systolic velocity in the left common carotid artery is 89 cm/sec. There is no atherosclerotic plaque or narrowing in the carotid bulb or proximal ICA. The peak systolic velocity in the proximal internal carotid artery is 72 cm/sec. Proximal aspect of the external carotid artery is patent with expected high resistance waveforms, and peak systolic velocity of 100 cm/sec. Vertebral arteries: Flow in the bilateral vertebral arteries is antegrade. IMPRESSION: 1. Normal proximal internal carotid arteries on both sides. 2. Patent vertebral arteries with antegrade flow. Parameters based on the consensus panel Sal-Scale and Doppler ultrasound criteria published May 2003, Radiology, Volume 229. DOPPLER (peak systolic velocity M/S Right Left CCA .94 .89 ICA Proximal 1.08 .75 ICA Mid .67 .79 ICA Distal 1.03 .72 RATIO .87 .84 ECA 1.07 1.00 VERT .91 .50 Dictated by: Dictated on workstation # [id number]
== END ==
LOC: RAD 08:43
PROVIDERS: ATTEND Physician Assistant Medical
DX: I65.23 Occlusion and stenosis of bilateral carotid arteries (principal)
CPT/HCPCS: 93880

== ENCOUNTER → 2021-03-31 | Outpatient (CLI) | payer MEDICARE, OTHER ==
[2021-03-31 09:40] LABS: BASOPHILS % (AUTO) 1 % (0-10); EOSINOPHILS # (AUTO) 0.1 10^3/uL (0.0-0.3); EOSINOPHILS % (AUTO) 2 % (0-10); HEMATOCRIT 43 % (35-52); HEMOGLOBIN 13.9 g/dL (11.5-16.0); LYMPHOCYTES # (AUTO) 1.5 10^3/uL (1.0-4.0); LYMPHOCYTES % (AUTO) 28 % (12-44); MEAN CORPUSCULAR HEMOGLOBIN 29 pg (25-34); MEAN CORPUSCULAR HGB CONC 33 g/dL (32-36); MEAN CORPUSCULAR VOLUME 90 fL (80-99); MONOCYTES # (AUTO) 0.6 10^3/uL (0.0-1.0); MONOCYTES % (AUTO) 11 % (0-12); NEUTROPHILS # (AUTO) 3.1 10^3/uL (1.8-7.8); NEUTROPHILS % (AUTO) 58 % (42-75); PLATELET COUNT 267 10^3/uL (130-400); WHITE BLOOD COUNT 5.4 10^3/uL (4.3-11.0)
[2021-03-31 09:57] LABS: ALBUMIN 4.1 GM/DL (3.2-4.5); BILIRUBIN,TOTAL 0.5 MG/DL (0.1-1.0); CALCIUM 9.6 MG/DL (8.5-10.1); CREATININE SERUM 0.8 MG/DL (0.60-1.30); POTASSIUM 4.4 MMOL/L (3.6-5.0); TOTAL PROTEIN 6.9 GM/DL (6.4-8.2)
== END ==
LOC: LAB 09:17
PROVIDERS: ATTEND Family Medicine
DX: I25.10 Atherosclerotic heart disease of native coronary artery without angina pectoris (principal); I10 Essential (primary) hypertension; E78.5 Hyperlipidemia, unspecified
CPT/HCPCS: 36415; 80053; 80061; 85025

== ENCOUNTER → 2021-05-24 | Outpatient (CLI) | payer MEDICARE, OTHER ==
--- NOTE | 2021-05-24 12:01 | Diagnostic Imaging Report ---
INDICATION: Routine screening. Comparison is made with prior mammogram from 05/21/2020 and 05/17/2019. 2-D and 3-D bilateral screening mammography was performed with CAD. Scattered fibroglandular densities are identified bilaterally. Nodular density in the left breast is stable. Scattered benign calcifications bilaterally. No spiculated mass or malignant-appearing microcalcifications are seen. Axillae are unremarkable. IMPRESSION: No mammographic features suspicious for malignancy are identified. BI-RADS Category 2 ACR BI-RADS Category 2: Benign findings. Result letter will be mailed to the patient. Note: At least 10% of breast cancer is not imaged by mammography. Dictated by: Dictated on workstation # [id number]
== END ==
LOC: RAD 08:57
PROVIDERS: ATTEND Family Medicine
DX: Z12.31 Encounter for screening mammogram for malignant neoplasm of breast (principal)
CPT/HCPCS: 77063; 77067

== ENCOUNTER → 2021-05-24 | Outpatient (CLI) | payer MEDICARE, OTHER | LOC: CARD 09:00 | PROVIDERS: ATTEND Physician Assistant Medical | DX: I35.1 Nonrheumatic aortic (valve) insufficiency (principal); I35.8 Other nonrheumatic aortic valve disorders; I10 Essential (primary) hypertension | CPT/HCPCS: 93306 ==

== ENCOUNTER → 2021-12-15 | Outpatient (CLI) | payer MEDICARE, OTHER ==
[2021-12-15 07:21] LABS: HEMATOCRIT 41 % (35-52); HEMOGLOBIN 12.9 g/dL (11.5-16.0); MEAN CORPUSCULAR HEMOGLOBIN 28 pg (25-34); MEAN CORPUSCULAR HGB CONC 32 g/dL (32-36); MEAN CORPUSCULAR VOLUME 89 fL (80-99); MEAN PLATELET VOLUME 8.8 fL (9.0-12.2); PLATELET COUNT 250 10^3/uL (130-400); WHITE BLOOD COUNT 8.8 10^3/uL (4.3-11.0)
[2021-12-15 07:43] LABS: ALBUMIN 3.9 GM/DL (3.2-4.5)
[2021-12-15 07:44] LABS: CALCIUM 9.1 MG/DL (8.5-10.1)
[2021-12-15 07:45] LABS: TOTAL PROTEIN 6.5 GM/DL (6.4-8.2)
[2021-12-15 07:47] LABS: BILIRUBIN,TOTAL 0.4 MG/DL (0.1-1.0)
[2021-12-15 07:49] LABS: CREATININE SERUM 0.76 MG/DL (0.60-1.30)
== END ==
LOC: LAB 06:50
PROVIDERS: ATTEND Family Medicine
DX: I25.10 Atherosclerotic heart disease of native coronary artery without angina pectoris (principal); R53.83 Other fatigue; E78.5 Hyperlipidemia, unspecified
CPT/HCPCS: 36415; 80053; 80061; 84443; 85027

== ENCOUNTER → 2022-05-25 | Outpatient (CLI) | payer MEDICARE, OTHER ==
--- NOTE | 2022-05-25 13:15 | Diagnostic Imaging Report ---
Indication: Routine screening. Comparison is made with prior mammogram 05/24/2021 and 05/21/2020. 2-D and 3-D bilateral screening mammography was performed with CAD. CAD is utilized. The current study was also evaluated with a Computer Aided Detection (CAD) system. Scattered fibroglandular densities are identified bilaterally. There are benign calcifications noted in both breasts. No dominant mass or malignant-appearing microcalcifications are seen. Axillae are unremarkable. IMPRESSION: BI-RADS Category 2 No mammographic features suspicious for malignancy are identified. ACR BI-RADS Category 2: Benign findings. Result letter will be mailed to the patient. Note: At least 10% of breast cancer is not imaged by mammography. Dictated by: Dictated on workstation # [id number]
== END ==
LOC: RAD 10:15
PROVIDERS: ATTEND Family Medicine
DX: Z12.31 Encounter for screening mammogram for malignant neoplasm of breast (principal)
CPT/HCPCS: 77063; 77067

== ENCOUNTER 2022-10-05 11:20 | Observation (INO) | payer MEDICARE, OTHER ==
[~2022-10-05] VITALS: Ht 162.6 cm; Wt 67.1 kg
[~2022-10-05 11:20] MED LIST changes: +CLOP-31 PO; -CLOP75TA69 PO; -MELA1TAB20 PO; +MELA1TAB72 PO
--- NOTE | 2022-10-05 11:47 | ED Neurological Problem ---
General Chief Complaint: Neuro-Stroke Like Symptoms Stated Complaint: CONFUSION Nursing Triage Note: TO ROOM 05 WITH SON. SON STATES AT APPX MIDNIGHT LAST NIGHT PT WAS CALLING AND TEXTING FAMILY NOT MAKING SENSE. SON STATES PT'S SPEECH SEEMS SLURRED AT TIME. PT RECENTLY SEEN FOR BLOOD IN THE URINE WHICH TOLD THEM MIGHT BE CANCER. Source: patient, family Exam Limitations: no limitations History of Present Illness Date Seen by Provider: Oct 05, 2022 Time Seen by Provider: 11:42 Initial Comments Patient is a 77-year-old female with a history of coronary artery disease, hyperlipidemia who presents to ED with family for increased confusion. This started around 12:00 last night. according to son at bedside patient was calling and texting her aunt last night and did not make of any since her wording did not make of any sense. When the son came to patient's house he states trying to have any type of conversation with her was difficult. Patient having difficulty coming up with words. Her words were out of context. He denied of any slurring of the words but seemed very altered and slow to respond. She seemed "spacey". She is able to ambulate. No history of similar symptoms in the past. She has been having lower pelvic pain for the past week with frequent urination. She has seen her primary care physician Dr. Adan there was concern for potential bladder cancer. No history of stroke but does have a history of coronary artery disease currently on Plavix with stent placement. She has no current chest pain, cough, shortness of breath, vomiting, diarrhea, unilateral muscle weakness or sensory changes, facial droop. Family denies history of diabetes, history of strokes, blurred vision Allergies and Home Medications Allergies Coded Allergies: No Known Drug Allergies (Unverified , 02/25/16) Patient Home Medication List Home Medication List Reviewed: Yes Atorvastatin Calcium (Atorvastatin Calcium) 10 Mg Tablet, 10 MG PO HS, (Reported) Entered as Reported by: ZENOBIA GEORGES on 01/15/18 1349 Cholecalciferol (Vitamin D3) (Vitamin D3) 5,000 Unit Capsule, 5,000 UNIT PO DAILY, (Reported) Entered as Reported by: ZENOBIA GEORGES on 01/15/18 1349 Fluoxetine HCl (Prozac) 40 Mg Capsule, 40 MG PO DAILY, (Reported) Entered as Reported by: ZENOBIA GEORGES on 01/15/18 1349 Melatonin/Pyridoxine HCl (B6) (Melatonin 10 mg Tablet) 1 Each Tab.mphase, 1 EACH PO HS, (Reported) Entered as Reported by: ZENOBIA GEORGES on 01/15/18 1349 Ondansetron (Ondansetron Odt) 8 Mg Tab.rapdis, 8 MG PO Q6H PRN for NAUSEA/VOMITING Prescribed by: POPEYE CASTRO on 10/04/20 1407 Pantoprazole Sodium (Pantoprazole Sodium) 40 Mg Tablet.dr, 40 MG PO DAILY Prescribed by: REX BECERRA on 03/16/18 1128 Potassium Chloride (Potassium Chloride) 8 Meq Tablet.er, 8 MEQ PO DAILY, (Repor aye) Entered as Reported by: ZENOBIA GEORGES on 01/15/18 134 Tramadol HCl (Tramadol HCl) 50 Mg Tablet, 50 MG PO BID PRN for PAIN-MODERATE, (Reported) Entered as Reported by: ZENOBIA GEORGES on 01/15/18 1349 Valsartan/Hydrochlorothiazide (Valsartan-Hctz 320-25 mg Tab) 1 Each Tablet, 1 EACH PO DAILY, (Reported) Entered as Reported by: ZENOBIA GEORGES on 01/15/18 1349 Review of Systems Review of Systems Constitutional: No chills, No diaphoresis, No malaise Eyes: Denies Blurred Vision, Denies Drainage Respiratory: No cough, No dyspnea on exertion Cardiovascular: No chest pain, No edema Gastrointestinal: abdominal pain; No diarrhea, No nausea, No vomiting Genitourinary: No decreased output, No discharge; frequency Musculoskeletal: No back pain, No joint pain Skin: No change in color, No change in hair/nails All Other Systems Reviewed Negative Unless Noted: Yes Past Toywiof-Dfalyk-Fsimjb Hx Patient Social History Tobacco Use?: No Substance use?: No Alcohol Use?: No Seasonal Allergies Seasonal Allergies: No Past Medical History Bowel Surgery, Section, Cystectomy, Hysterectomy, Tonsillectomy Respiratory: No Cardiac: Yes Congenital Heart Disease Neurological: No Reproductive Disorders: No Sexually Transmitted Disease: No HIV/AIDS: No Genitourinary: No Gastrointestinal: No Gastroesophageal Reflux Musculoskeletal: No Chronic Back Pain Endocrine: No HEENT: No Loss of Vision: Bilateral Hearing Impairment: Hard of Hearing Cancer: No Psychosocial: No Integumentary: No Blood Disorders: No Adverse Reaction/Blood Tranf: No Physical Exam Vital Signs Vital Signs - First Documented 10/05/22 11:30 Temp 34.7 Pulse 97 Resp 16 B/P (MAP) 166/78 (107) Pulse Ox 97 O2 Delivery Room Air Capillary Refill : Less Than 3 Seconds Height, Weight, BMI Height: 5'5.00" Weight: 160lbs. 0.0oz. [id number]; 28.00 BMI Method: General Appearance: WD/WN, mild distress HEENT: PERRL/EOMI, normal ENT inspection, TMs normal, pharynx normal Neck: non-tender, full range of motion, supple, normal inspection Respiratory: chest non-tender, lungs clear, normal breath sounds, no respiratory distress, no accessory muscle use Cardiovascular: regular rate, rhythm, no edema, no gallop, no JVD Gastrointestinal: normal bowel sounds, soft, no organomegaly, no pulsatile mass, tenderness (Suprapubic tenderness) Back: normal inspection, no CVA tenderness, no vertebral tenderness Extremities: normal range of motion, non-tender, normal inspection Neurologic/Psychiatric: oriented x 3; No abnormal gait, No EOM palsy, No facial droop, No motor weakness, No sensory deficit; other Crainal Nerves: normal hearing; No abnormal eye position, No abnormal pupil po sition, No facial asymmetry, No facial droop, No facial paresthesias Coordination/Gait: ABN nose to finger (R) Motor/Sensory: no motor deficit, no sensory deficit, no pronator drift Stroke Onset of Symptoms Date of Onset of Symptoms: Oct 04, 2022 Onset of Symptoms: No Symptoms onset unknown: No NIH Stroke Scale Assessment Level of Consciousness: 0=Alert (0), Level of Consciousness-Questions: 0=Answers both month/age (0), LOC Commands: 0=Performs both tasks (0), Gaze: Normal (0), Visual Corbett: 0=No visual loss (0), Facial Movement (Facial Paresis): 0=Normal symmetrical mnt (0), Motor Function-Arms Right: 0=No drift (0), Motor Function-Arms Left: 0=No drift (0), Motor Function-Legs Right: 0=No drift (0), Motor Function-Legs Left: 0=No drift (0), Limb Ataxia: 2=Present in two limbs (2), Sensory: 0=Normal:no loss (0), Best Language: 1=Mild to moderat aphasia (1), Dysarthria: 0=Normal (0), Extinction & Inattention: 0=No abnormality (0), Total: 3 Progress/Results/Core Measures Results/Orders Lab Results Laboratory Tests Test 10/05/22 11:45 10/05/22 12:23 10/05/22 12:49 Range/Units White Blood Count 6.6 4.3-11.0 10^3/uL Red Blood Count 4.67 3.80-5.11 10^6/uL Hemoglobin 13.5 11.5-16.0 g/dL Hematocrit 40 35-52 % Mean Corpuscular Volume 86 80-99 fL Mean Corpuscular Hemoglobin 29 25-34 pg Mean Corpuscular Hemoglobin Concent 34 32-36 g/dL Red Cell Distribution Width 14.4 10.0-14.5 % Platelet Count 251 130-400 10^3/uL Mean Platelet Volume 9.6 9.0-12.2 fL Immature Granulocyte % (Auto) 0 % Neutrophils (%) (Auto) 76 H 42-75 % Lymphocytes (%) (Auto) 14 12-44 % Monocytes (%) (Auto) 8 0-12 % Eosinophils (%) (Auto) 1 0-10 % Basophils (%) (Auto) 0 0-10 % Neutrophils # (Auto) 5.0 1.8-7.8 10^3/uL Lymphocytes # (Auto) 0.9 L 1.0-4.0 10^3/uL Monocytes # (Auto) 0.5 0.0-1.0 10^3/uL Eosinophils # (Auto) 0.0 0.0-0.3 10^3/uL Basophils # (Auto) 0.0 0.0-0.1 10^3/uL Immature Granulocyte # (Auto) 0.0 0.0-0.1 10^3/uL Prothrombin Time 13.5 12.2-14.7 SEC INR Comment 1.0 0.8-1.4 Activated Partial Thromboplast Time 27 24-35 SEC Sodium Level 140 135-145 MMOL/L Potassium Level 3.9 3.6-5.0 MMOL/L Chloride Level 104 98-107 MMOL/L Carbon Dioxide Level 22 21-32 MMOL/L Anion Gap 14 5-14 MMOL/L Blood Urea Nitrogen 24 H 7-18 MG/DL Creatinine 0.91 0.60-1.30 MG/DL Estimat Glomerular Filtration Rate 66 BUN/Creatinine Ratio 26 Glucose Level 90 70-105 MG/DL Calcium Level 9.7 8.5-10.1 MG/DL Corrected Calcium 9.3 8.5-10.1 MG/DL Total Bilirubin 0.7 0.1-1.0 MG/DL Aspartate Amino Transf (AST/SGOT) 27 5-34 U/L Alanine Aminotransferase (ALT/SGPT) 14 0-55 U/L Alkaline Phosphatase 81 40-136 U/L Troponin I < 0.028 <0.028 NG/ML Total Protein 7.0 6.4-8.2 GM/DL Albumin 4.5 3.2-4.5 GM/DL Glucometer 82 70-110 MG/DL Urine Color YELLOW Urine Clarity CLEAR Urine pH 6.0 5-9 Urine Specific Almond >=1.030 1.016-1.022 Urine Protein 1+ H NEGATIVE Urine Glucose (UA) NEGATIVE NEGATIVE Urine Ketones 2+ H NEGATIVE Urine Nitrite NEGATIVE NEGATIVE Urine Bilirubin 1+ H NEGATIVE Urine Urobilinogen 1.0 < = 1.0 MG/DL Urine Leukocyte Esterase NEGATIVE NEGATIVE Urine RBC (Auto) 3+ H NEGATIVE Urine RBC >100 H /HPF Urine WBC 0-2 /HPF Urine Squamous Epithelial Cells 0-2 /HPF Urine Crystals NONE /LPF Urine Bacteria FEW H /HPF Urine Casts NONE /LPF Urine Mucus SMALL H /LPF Urine Culture Indicated NO My Orders Orders - MILDRED RYDER PA Cbc With Automated Diff (10/05/22 11:40) Protime With Inr (10/05/22 11:40) Partial Thromboplastin Time (10/05/22 11:40) Comprehensive Metabolic Panel (10/05/22 11:40) Troponin I Stevens (10/05/22 11:40) Ua Culture If Indicated (10/05/22 11:40) Chest 1 View, Ap/Pa Only (10/05/22 11:40) Ekg Tracing (10/05/22 11:40) Nothing By Mouth (10/05/22 Lunch) Accucheck Stat ONCE (10/05/22 11:40) Ed Iv/Invasive Line Start (10/05/22 11:40) Vital Signs Stroke Patient Q15M (10/05/22 11:40) Ct Head Wo-R/O Stroke (10/05/22 11:40) Monitor-Rhythm Ecg Trace Only (10/05/22 11:40) Dysphagia Screening Tool Q10MX1 (10/05/22 11:40) Mri Brain W/O Contrast (10/05/22 12:34) Straight Cath For Spec.-Adult (10/05/22 12:45) Ekg Tracing (10/05/22 13:52) Ct Abdomen/Pelvis W (10/05/22 14:05) Iohexol Injection (Omnipaque 350 Mg/Ml 1 (10/05/22 14:15) Received Contrast (Hold Metformin- Contr (10/05/22 14:15) Ns (Ivpb) (Sodium Chloride 0.9% Ivpb Bag (10/05/22 14:15) Medications Given in ED Current Medications Medications Dose Ordered Sig/Andres Route Start Time Stop Time Status Last Admin Dose Admin Iohexol 75 ml ONCE ONCE IV 10/05/22 14:15 10/05/22 14:16 DC 10/05/22 14:28 75 ML Sodium Chloride 100 ml ONCE ONCE IV 10/05/22 14:15 10/05/22 14:16 DC 10/05/22 14:28 80 ML Vital Signs/I&O 10/05/22 11:30 Temp 34.7 Pulse 97 Resp 16 B/P (MAP) 166/78 (107) Pulse Ox 97 O2 Delivery Room Air Blood Pressure Mean: 107 Comment Sinus rhythm, left ventricular hypertrophy, 66 bpm, QRS duration 104 MS, QTc 450 MS Departure Communication (Admissions) Time/Spoke to Admitting Phy: 15:13 Discussed patient with primary care physician Dr. Moctezuma for altered mental status and hematuria. Discussed results. She agrees to admit for observation for change in mental status. Communication (PCP) Reviewed previous ER visits, H&P, lab testing. Patient with a history of coronary artery disease presents the ED with son for concern for change in mental status. Believe this started around 12:00 last night when she called her sister. Unknown clear start time. Patient was calling and texting her sister last night and her sister stated the patient was hard to understand. According to his son he noted patient appeared to be confused and altered today. She seemed spacey and was having difficulty processing and getting her words out. Due to unknown length of time patient was not a tPA candidate. Did perform a NIH and scored a 3. Limb ataxia with mild to moderate aphasia. She had no focal neural deficits, weakness, facial droop. She seems to be going in and out of these state of confusion. No history of similar symptoms. Recent diagnosis of hematuria with lower pelvic pain. Other concern would be systemic infection such as urinary tract infection for AMS. She has no chest pain, cough, vomiting, diarrhea. She did have some suprapubic discomfort. CBC, CMP, EKG, CT scan of the head, urinalysis was started. CT scan of the head shows Advanced low-attenuation changes in the white matter including the bilateral basal ganglia are similar to yesterday. These have likely progressed since an 02/25/2016 MRI. History of microvascular ischemia. No evidence of bruit. Unremarkable ultrasound of her carotids in 2020. no current chest pain. EKG showed sinus rhythm with probable left ventricular hypertrophy. Vital signs were stable. Chest x-ray negative for pneumonia, pneumothorax. CBC, CMP grossly unremarkable. Normal troponin. Urine did not show any evidence of gross hematuria. Red blood cells noted without evidence of infection. Due to her neurological changes MRI of the brain was ordered to rule out any acute infarct. MRI shows Findings are suggestive of chronic volume loss and extensive microvascular ischemia which is somewhat worsened compared to previous study. Patient mention to her PCP of changes in her memory. Could have a component of dementia. CT abdomen and pelvis did not show any acute abnormality. Due to her hematuria would likely benefit with a uroscopy for further evaluation. Due to the change in mental status patient was discussed with Dr. Moctezuma her primary care physician. Recommended admission observation at this time for further evaluation. Dr. Moctezuma is currently working to get a urology outpatient follow-up for her hematuria. She did stop her Plavix and aspirin to see if this was secondary to a small bleed. since she is not anemic this can be evaluated in a nonemergent setting. Discussed results with son at bedside which she agrees with this plan of action. According to son patient was at her normal baseline yesterday morning. Impression Primary Impression: AMS (altered mental status) Additional Impression: Hematuria Disposition: ADMITTED INPATIENT Condition: Stable Admissions Decision to Admit Reason: Admit from ER (General) Decision to Admit/Date: Oct 05, 2022 Time/Decision to Admit Time: 15:13 Departure-Patient Inst. Referrals: LUIS MOCTEZUMA DO (PCP/Family) Primary Care Physician MILDRED RYDER Oct 05, 2022 11:47
[2022-10-05 11:58] LABS: BASOPHILS % (AUTO) 0 % (0-10); EOSINOPHILS % (AUTO) 1 % (0-10); HEMATOCRIT 40 % (35-52); HEMOGLOBIN 13.5 g/dL (11.5-16.0); LYMPHOCYTES # (AUTO) 0.9 10^3/uL (1.0-4.0); LYMPHOCYTES % (AUTO) 14 % (12-44); MEAN CORPUSCULAR HEMOGLOBIN 29 pg (25-34); MEAN CORPUSCULAR HGB CONC 34 g/dL (32-36); MEAN CORPUSCULAR VOLUME 86 fL (80-99); MEAN PLATELET VOLUME 9.6 fL (9.0-12.2); MONOCYTES # (AUTO) 0.5 10^3/uL (0.0-1.0); MONOCYTES % (AUTO) 8 % (0-12); NEUTROPHILS % (AUTO) 76 % (42-75); PLATELET COUNT 251 10^3/uL (130-400); WHITE BLOOD COUNT 6.6 10^3/uL (4.3-11.0)
--- NOTE | 2022-10-05 12:04 | Diagnostic Imaging Report ---
INDICATION: cough COMPARISON: None FINDINGS: Single frontal view of the chest demonstrates normal heart size and pulmonary vascularity. The lungs are well aerated and clear. No large pleural effusion or pneumothorax is seen. The visualized osseous structures show no acute abnormalities. IMPRESSION: 1. No acute cardiopulmonary process. Dictated by: Dictated on workstation # [id number]
[2022-10-05 12:08] LABS: ALBUMIN 4.5 GM/DL (3.2-4.5); CHLORIDE 104 MMOL/L (98-107)
[2022-10-05 12:09] LABS: POTASSIUM 3.9 MMOL/L (3.6-5.0); PROTHROMBIN TIME PATIENT 13.5 SEC (12.2-14.7); SODIUM 140 MMOL/L (135-145)
[2022-10-05 12:10] LABS: CALCIUM 9.7 MG/DL (8.5-10.1)
[2022-10-05 12:11] LABS: GLUCOSE 90 MG/DL (70-105)
[2022-10-05 12:12] LABS: CARBON DIOXIDE 22 MMOL/L (21-32)
[2022-10-05 12:13] LABS: BILIRUBIN,TOTAL 0.7 MG/DL (0.1-1.0)
[2022-10-05 12:14] LABS: ALKALINE PHOSPHATASE 81 U/L (40-136)
[2022-10-05 12:15] LABS: CREATININE SERUM 0.91 MG/DL (0.60-1.30); GFR ESTIMATED 66
[2022-10-05 12:16] LABS: BUN/CREATININE RATIO 26
[2022-10-05 12:17] LABS: ALANINE AMINOTRANSFERASE 14 U/L (0-55)
--- NOTE | 2022-10-05 12:29 | Diagnostic Imaging Report ---
PROCEDURE: CT head wo r/o stroke. TECHNIQUE: Multiple contiguous axial images were obtained through the brain without the use of intravenous contrast. Auto Exposure Controls were utilized during the CT exam to meet ALARA standards for radiation dose reduction. INDICATION: Neurologic deficit. Stroke. COMPARISON: CT head without contrast 10/04/2020. FINDINGS: Mild generalized parenchymal volume loss. Advanced low-attenuation changes in the white matter. Low-attenuation changes in the basal ganglia including the bilateral thalami. No intracranial hemorrhage, mass effect, hydrocephalus or extra-axial fluid collections. Osseous structures are intact. Paranasal sinuses and mastoids are clear. IMPRESSION: Advanced low-attenuation changes in the white matter including the bilateral basal ganglia are similar to yesterday. These have likely progressed since an 02/25/2016 MRI. Subacute progression cannot be excluded by CT. This could be further evaluated with MRI. No intracranial hemorrhage. Dictated by: Dictated on workstation # [id number]
[2022-10-05 12:55] LABS: CLARITY,URINE CLEAR; COLOR,URINE YELLOW; GLUCOSE, URINE (UA) NEGATIVE (NEGATIVE); KETONES,URINE 2+ (NEGATIVE); LEUKOCYTE ESTERASE ,URINE NEGATIVE (NEGATIVE); NITRITE,URINE NEGATIVE (NEGATIVE); PROTEIN,URINE 1+ (NEGATIVE)
[2022-10-05 13:13] LABS: BACTERIA,URINE FEW /HPF; BILIRUBIN,URINE 1+ (NEGATIVE); RBC,URINE >100 /HPF; WBC,URINE 0-2 /HPF
[2022-10-05 13:14] LABS: SQUAMOUS EPITHELIAL CELL,UR 0-2 /HPF
--- NOTE | 2022-10-05 13:54 | Diagnostic Imaging Report ---
PROCEDURE: MR imaging of the brain without contrast. TECHNIQUE: Multiplanar, multisequence MR imaging of the brain was performed without contrast. INDICATION: Aphasia, confusion and limb ataxia. COMPARISON: 02/25/2016 Ventricles and sulci remain diffusely prominent with slight increase in ventricular volumes. Extensive T2 prolongation is again seen throughout the cerebral white matter with involvement also along the thalamus, harlan and midbrain. There is however no restricted diffusion to indicate an acute infarct. There is no evidence of hemorrhage. There is no abnormal mass effect or shift of midline structures. Visualized paranasal sinuses are clear as are mastoid air cells. IMPRESSION: Findings are suggestive of chronic volume loss and extensive microvascular ischemia which is somewhat worsened compared to previous study. There is no evidence of acute infarct or other acute intracranial abnormality. Dictated by: Dictated on workstation # [id number]
[2022-10-05] MEDS ORDERED: NS 100 ML (IVPB) BAG IV ONE (14:15)
[2022-10-05] MEDS ORDERED: HOLD METFORMIN - RECEIVED CONTRAST 20 ML VIAL IV SCH (14:15)
[2022-10-05] MEDS ORDERED: IOHEXOL 350 MG/ML 100 ML (OMNIPAQUE 350) VIAL IV ONE (14:15)
--- NOTE | 2022-10-05 14:50 | Diagnostic Imaging Report ---
PROCEDURE: CT abdomen and pelvis with contrast. TECHNIQUE: Multiple contiguous axial images were obtained through the abdomen and pelvis after administration of intravenous contrast. Auto Exposure Controls were utilized during the CT exam to meet ALARA standards for radiation dose reduction. All CT scans use one or more of the following dose optimizing techniques: automated exposure control, MA and/or KvP adjustment based on patient size and exam type or iterative reconstruction. INDICATION: Hematuria and lower abdominal pain. No prior studies are available for comparison. Lung bases are clear. Postoperative changes gastric bypass surgery are noted. No focal liver mass is identified. Gallbladder is unremarkable. There is no biliary ductal dilatation. The pancreas and spleen are unremarkable. No adrenal mass is identified. Kidneys are unremarkable apart from a small cortical low-attenuation lesions within both kidneys, too small to characterize but most likely small cysts. Aorta is nonaneurysmal. Small and large bowel loops are normal caliber. There is no obstruction. There is no ascites. The bladder is difficult to evaluate due to the bladder being decompressed. The uterus appears to be surgically absent. No inflammatory changes are seen. Bony structures are nonacute. IMPRESSION: Essentially unremarkable CT of the abdomen and pelvis with contrast. No acute features identified. Bladder is incompletely evaluated on this study. If there is concern for urothelial neoplasm, dedicated CT urography study could be performed for further evaluation. Dictated by: Dictated on workstation # [id number]
[2022-10-05] MEDS ORDERED: ACETAMINOPHEN 325 MG TABLET PO PRN (18:30)
[2022-10-05] MEDS ORDERED: ONDANSETRON 4 MG/2 ML (SDV) Z0FRAN IVP PRN (18:30)
[2022-10-05] MEDS ORDERED: 1/2 NS IV SOLUTION 1,000 ML IV SCH (18:45)
--- NOTE | 2022-10-05 19:04 | History & Physical ---
History of Present Illness History of Present Illness Reason for visit/HPI This is a 77 year old female with a history of CAD, HTN and chronic microvascular ischemia. She has had recent gross hematuria. She also reports recent worsening of memory. She was brought to the emergency room by her son due to acute confusion/altered mental status. Her initial NIH stroke scale was 3. She underwent a CT scan of the brain as well as MRI of the brain which showed no evidence of acute stroke. She has had severe stress over her hematuria convinced that she has bladder cancer. She will be admitted for observation. Date of Admission Oct 05, 2022 at 16:20 Date Seen by a Provider: Oct 05, 2022 Time Seen by a Provider: 18:59 I consulted on this patient on 10/05/22 18:59 Attending Physician Luis Moctezuma DO Admitting Physician Admitting Physician: Luis Moctezuma DO Attending Physician: Luis Moctezuma DO Consult Allergies and Home Medications Allergies Coded Allergies: No Known Drug Allergies (Unverified , 02/25/16) Patient Home Medication List Home Medication List Reviewed: Yes Atorvastatin Calcium (Atorvastatin Calcium) 10 Mg Tablet, 10 MG PO HS, (Reported) Entered as Reported by: ZENOBIA GEORGES on 01/15/18 1349 Cholecalciferol (Vitamin D3) (Vitamin D3) 5,000 Unit Capsule, 5,000 UNIT PO DAILY, (Reported) Entered as Reported by: ZENOBIA GEORGES on 01/15/18 1349 Fluoxetine HCl (Prozac) 40 Mg Capsule, 40 MG PO DAILY, (Reported) Entered as Reported by: ZENOBIA GEORGES on 01/15/18 1349 Melatonin/Pyridoxine HCl (B6) (Melatonin 10 mg Tablet) 1 Each Tab.mphase, 1 EACH PO HS, (Reported) Entered as Reported by: ZENOBIA GEORGES on 01/15/18 1349 Ondansetron (Ondansetron Odt) 8 Mg Tab.rapdis, 8 MG PO Q6H PRN for NAUSEA/VOMITING Prescribed by: POPEYE CASTRO on 10/04/20 1407 Pantoprazole Sodium (Pantoprazole Sodium) 40 Mg Tablet.dr, 40 MG PO DAILY Prescribed by: REX BECERRA on 03/16/18 1128 Potassium Chloride (Potassium Chloride) 8 Meq Tablet.er, 8 MEQ PO DAILY, (Reported) Entered as Reported by: ZENOBIA GEORGES on 01/15/18 1349 Tramadol HCl (Tramadol HCl) 50 Mg Tablet, 50 MG PO BID PRN for PAIN-MODERATE, (Reported) Entered as Reported by: ZENOBIA GEORGES on 01/15/18 1349 Valsartan/Hydrochlorothiazide (Valsartan-Hctz 320-25 mg Tab) 1 Each Tablet, 1 EACH PO DAILY, (Reported) Entered as Reported by: ZENOBIA GEORGES on 01/15/18 1349 Past Gfspztr-Omefwb-Leisjy Hx Patient Social History Tobacco Use?: No Use of E-Cig and/or Vaping dev: No Substance use?: No Alcohol Use?: No Pt feels they are or have been: No Immunizations Up To Date Date of Influenza Vaccine: Apr 17, 2017 Date of Pneumonia Vaccine: Apr 17, 2017 Seasonal Allergies Seasonal Allergies: No Current Status status: No status: No Advance Directives: No Communicates: Verbally Primary Language: Tuvaluan Preferred Spoken Language: Tuvaluan Is interpretation needed?: No Sensory deficits: Vision impairment Implanted or Applied Medical D: Stents Past Medical History Surgeries: Bowel Surgery, Section, Cystectomy, Hysterectomy, Tonsillectomy Congenital Heart Disease Sexually Transmitted Disease: No HIV/AIDS: No Gastroesophageal Reflux Chronic Back Pain Loss of Vision: Bilateral Hearing Impairment: Hard of Hearing Blood Disorders: No Adverse Reaction/Blood Tranf: No Review of Systems Constitutional: No no symptoms reported, No see HPI, No chills, No diaphoresis, No dizziness, No fever, No malaise, No weakness, No weight gain, No weight loss, No other EENTM: No see HPI, No no symptoms reported, No ear discharge, No hearing loss, No ear pain, No blurred vision, No double vision, No eye pain, No tearing, No vision loss, No dental problems, No hoarseness, No mouth pain, No mouth swelling, No epistaxis, No nose congestion, No nose pain, No throat pain, No throat swelling, No other Respiratory: No no symptoms reported, No see HPI, No cough, No dyspnea on exertion, No hemoptysis, No orthopnea, No phlegm, No short of breath, No stridor, No wheezing, No other Cardiovascular: No no symptoms reported, No see HPI, No chest pain, No edema, No Hx of Intervention, No palpitations, No syncope, No vascular heart diseas, No other Gastrointestinal: No RUQ, No LUQ, No RLQ, No LLQ, No no symptoms reported, No see HPI, No abdominal pain, No constipation, No diarrhea, No dysphagia, No hematemesis, No heartburn, No jaundice, No loss of appetite, No melena, No nausea, No vomiting, No other Genitourinary: hematuria Musculoskeletal: No no symptoms reported, No see HPI, No back pain, No gout, No joint pain, No joint swelling, No muscle pain, No muscle stiffness, No muscle cramps, No muscle twitching, No muscle weakness, No neck pain, No other Skin: No no symptoms reported, No see HPI, No change in color, No change in hair/nails, No dryness, No hx of skin cancer, No lesions, No lumps, No pruritus, No rash, No other Psychiatric/Neurological: Anxiety, Other (memory loss/confusion) Physical Exam Vital Signs Vital Signs - First Documented 10/05/22 11:30 Temp 34.7 Pulse 97 Resp 16 B/P (MAP) 166/78 (107) Pulse Ox 97 O2 Delivery Room Air Capillary Refill : Less Than 3 Seconds Height, Weight, BMI Height: 5'5.00" Weight: 160lbs. 0.0oz. [id number]; 25.37 BMI Method: General Appearance: No Apparent Distress Neck: Supple Respiratory: Lungs Clear Cardiovascular: Regular Rate, Rhythm Gastrointestinal: Normal Bowel Sounds, Non Tender, Soft Rectal: Deferred Back: No CVA Tenderness Extremity: Non Tender, No Calf Tenderness, No Pedal Edema Neurologic/Psychiatric: Alert, Oriented x3, No Motor/Sensory Deficits, Normal Mood/Affect, small offset printer II-XII Norm as Tested Skin: Warm/Dry Comments Laboratory Tests 10/05/22 11:45: White Blood Count 6.6, Red Blood Count 4.67, Hemoglobin 13.5, Hematocrit 40, Mean Corpuscular Volume 86, Mean Corpuscular Hemoglobin 29, Mean Corpuscular Hemoglobin Concent 34, Red Cell Distribution Width 14.4, Platelet Count 251, Mean Platelet Volume 9.6, Immature Granulocyte % (Auto) 0, Neutrophils (%) (Auto) 76H, Lymphocytes (%) (Auto) 14, Monocytes (%) (Auto) 8, Eosinophils (%) (Auto) 1, Basophils (%) (Auto) 0, Neutrophils # (Auto) 5.0, Lymphocytes # (Auto) 0.9L, Monocytes # (Auto) 0.5, Eosinophils # (Auto) 0.0, Basophils # (Auto) 0.0, Immature Granulocyte # (Auto) 0.0, Prothrombin Time 13.5, INR Comment 1.0, Activated Partial Thromboplast Time 27, Sodium Level 140, Potassium Level 3.9, Chloride Level 104, Carbon Dioxide Level 22, Anion Gap 14, Blood Urea Nitrogen 24H, Creatinine 0.91, Estimat Glomerular Filtration Rate 66, BUN/Creatinine Ratio 26, Glucose Level 90, Calcium Level 9.7, Corrected Calcium 9.3, Total Bili sanders 0.7, Aspartate Amino Transf (AST/SGOT) 27, Alanine Aminotransferase (ALT/SGPT) 14, Alkaline Phosphatase 81, Troponin I < 0.028, Total Protein 7.0, Albumin 4.5 10/05/22 12:23: Glucometer 82 10/05/22 12:49: Urine Color YELLOW, Urine Clarity CLEAR, Urine pH 6.0, Urine Specific [place] >=1.030, Urine Protein 1+H, Urine Glucose (UA) NEGATIVE, Urine Ketones 2+H, Urine Nitrite NEGATIVE, Urine Bilirubin 1+H, Urine Urobilinogen 1.0, Urine Leukocyte Esterase NEGATIVE, Urine RBC (Auto) 3+H, Urine RBC >100H, Urine WBC 0- 2, Urine Squamous Epithelial Cells 0-2, Urine Crystals NONE, Urine Bacteria FEWH , Urine Casts NONE, Urine Mucus SMALLH, Urine Culture Indicated NO Assessment/Plan Assessment and Plan 1. Altered Mental Status--likely underlying dementia with acute delirium due to stress of gross hematuria and worry about cancer vs TIA--will check carotid dopplers in AM 2. Chronic Microvascular Ischemia/Vascular Dementia--will start namenda 3. Gross Hematuria--plavix/aspirin on hold, has pending appointment next month with urology at [place] but trying to get in sooner with [facility] for cystoscope 4. Hypertension--will resume home meds 5. History of CAD--recently saw cardiology and is scheduled for updated stress test Admission Diagnosis Admission Status: Observation Clinical Quality Measures Stroke: Date of last known well: Oct 04, 2022 Symptoms onset unknown: LUIS Gonzalez DO Oct 05, 2022 19:04
[2022-10-05 20:07] VITALS: BP 123/59
[2022-10-06 00:02] VITALS: BP 145/64
[2022-10-06 04:45] VITALS: BP 132/60
[2022-10-06 07:09] VITALS: BP 129/60
[2022-10-06] MEDS: MEMANTINE 5 MG (NAMENDA) TABLET PO SCH (08:30)
[2022-10-06] MEDS ORDERED: POLY30DR6 OP ×2 (08:40)
[2022-10-06] MEDS ORDERED: CLOP75TA28 PO ×2 (08:40)
[2022-10-06] MEDS ORDERED: MV-M1TAB57 PO ×2 (08:40)
[2022-10-06] MEDS ORDERED: POTA10TA PO ×2 (08:40)
[2022-10-06] MEDS ORDERED: FLUO40CA PO ×2 (08:40)
[2022-10-06] MEDS ORDERED: ISOS30TA8 PO ×2 (08:40)
[2022-10-06] MEDS ORDERED: CALC-250 PO ×2 (08:40)
[2022-10-06] MEDS ORDERED: PANT40TA52 PO ×2 (08:40)
--- NOTE | 2022-10-06 10:58 | Diagnostic Imaging Report ---
PROCEDURE: US carotid duplex, bilateral. TECHNIQUE: Multiple real-time grayscale images were obtained over the carotid arteries in various projections, bilaterally. Additional spectral analysis and color Doppler duplex images were also obtained. INDICATION: Upper extremity weakness, memory loss and speech difficulty Grayscale images show minimal atherosclerotic plaque. The velocities and waveforms appear normal. Both vertebral arteries are patent with antegrade flow. IMPRESSION: Minimal atherosclerotic change. There is no occlusion or hemodynamically significant stenosis. Parameters based on the consensus panel Sal-Scale and Doppler ultrasound criteria published May 2003, Radiology, Volume 229. DOPPLER (peak systolic velocity M/S Right Left CCA 0.96 0.95 ICA Proximal 0.50 0.67 ICA Mid 0.64 0.91 ICA Distal 0.66 0.93 RATIO 0.69 0.98 ECA 0.91 0.93 VERT 0.58 0.80 Dictated by: Dictated on workstation # [id number]
[2022-10-06 11:18] VITALS: BP 140/62
[2022-10-06] MEDS ORDERED: PANTOPRAZOLE 40 MG (PROTONIX) TAB PO NR (15:00)
[2022-10-06 16:19] VITALS: BP_SYST 126
--- NOTE | 2022-10-06 18:40 | Progress Note ---
Subjective Date Seen by a Provider: Oct 06, 2022 Time Seen by a Provider: 12:45 Subjective/Events-last exam Fwup altered mental status, vascular dementia, gross hematuria. Still with confusion--keeps telling me she's healed and that she prayed all night for God to heal her. Her son is in the room and I had a long discussion with him and the patient and answered many questions. Objective Exam Vital Signs Date Time Temp Pulse Resp B/P (MAP) Pulse Ox O2 Delivery O2 Flow Rate FiO2 10/06/22 16:19 36.8 61 19 126/ 98 Room Air 10/06/22 11:18 36.6 59 20 140/62 (88) 97 Room Air 10/06/22 08:00 Room Air 10/06/22 07:09 36.1 57 20 129/60 (83) 96 Room Air 10/06/22 04:45 36.2 61 18 132/60 (84) 97 Room Air 10/06/22 00:02 36.4 63 20 145/64 (91) 98 Room Air 10/05/22 20:25 Room Air 10/05/22 20:07 36.9 71 16 123/59 (80) 98 Room Air I & O 10/06/22 07:00 Intake Total 500 ml Output Total 800 ml Balance -300 ml Capillary Refill : Less Than 3 Seconds General Appearance: No Apparent Distress Respiratory: Lungs Clear Cardiovascular: Regular Rate, Rhythm Extremity: Non Tender, No Calf Tenderness, No Pedal Edema Neurologic/Psychiatric: Alert, Disoriented Skin: Warm/Dry Assessment/Plan Assessment/Plan Assess & Plan/Chief Complaint 1. Altered Mental Status--TIA vs dementia exacerbation, carotid dopplers show minimal plaque, resume atorvastatin, plavix and aspirin on hold due to gross hematuria 2. Chronic Microvascular Ischemia/Vascular Dementia--namenda started, discussed in patient care vs placement with son 3. Hypertension/CAD--restarted low dose metoprolol 4. Gross Hematuria--improving with holding blood thinners, awaiting urology evaluation for cystoscope 5. GERD--start protonix Clinical Quality Measures Admission Status Admission Dx 1. Altered Mental Status--likely underlying dementia with acute delirium due to stress of gross hematuria and worry about cancer vs TIA--will check carotid dopplers in AM 2. Chronic Microvascular Ischemia/Vascular Dementia--will start namenda 3. Gross Hematuria--plavix/aspirin on hold, has pending appointment next month with urology at [place] but trying to get in sooner with [facility] for cystoscope 4. Hypertension--will resume home meds 5. History of CAD--recently saw cardiology and is scheduled for updated stress test Stroke: Date of last known well: Oct 04, 2022 Symptoms onset unknown: LUIS Gonzalez DO Oct 06, 2022 18:40
[2022-10-06] MEDS ORDERED: ANTACID SUSP 30 ML UDC (MYLANTA) PO PRN (18:45)
[2022-10-06] MEDS ORDERED: ALPRAZolam 0.25 MG (XANAX) TAB PO NR (18:45)
[2022-10-06 19:30] VITALS: BP 144/65
[2022-10-06] MEDS ORDERED: AtorvaSTATin TABLET 10 MG TABLET PO SCH (21:00)
[2022-10-07 00:05] VITALS: BP 156/70
[2022-10-07 03:39] VITALS: BP 132/61
[2022-10-07 07:42] VITALS: BP 145/62
[2022-10-07] MEDS: MEMANTINE 5 MG (NAMENDA) TABLET PO SCH (07:45)
[2022-10-07] MEDS ORDERED: PANTOPRAZOLE 40 MG (PROTONIX) TAB PO SCH (09:00)
--- NOTE | 2022-10-07 09:56 | D/C HH Face to Face Order ---
D/C Face to Face Orders Reconcile Patient Problems Problems Reviewed?: Yes Instructions for Patient Via Nelsy Evaneos, Patient Instructions/FollowUp: Fwup 1 week Physician to follow Patient: Jose Elias Discharge Diet for Home: Cardiac Diet Patient Data-Allergies,Ht & Wt Patient Allergies: Coded Allergies: No Known Drug Allergies (Unverified , 02/25/16) Height (Feet): 5 Height (Inches): 5.00 Weight (Pounds): 160 Weight (Ounces): 0.0 Home Health Need/Face to Face Date of Face to Face: Oct 07, 2022 Clinical Findings: Other-list in note (BP fluctuation, confusion/med management) I have seen Pt [id number]: Yes Discharged To: Home Diagnosis/Conditions: Altered Mental Status/Vascular Dementia/TIA Hypertension GERD Hx of CAD Patient is Homebound due to: CognItive deficits Homebound Status Due to the above stated illness, injury or surgical procedure (medical condition or diagnosis) and associated clinical findings, the patient is homebound because of his/her inability to leave home except with aid of a supportive device and/or person AND leaving the home requires a considerable and taxing effort or is medically contraindicated. Pt req the following assistanc: Aid of another person Home Health Nursing Orders Home Health Services Order: Nursing Services, Speech Language-Evaluate & Treat Home Health Infusion Therapy Line Start Date: Oct 05, 2022 Certify Stmt I certify that this patient is under my care and that I, a nurse practitioner or a physician; a technician assistant working with me, had a face to face encounter that - meets the physician face to face encounter requirements with this patient as dated. LUIS SCHAEFFER DO Oct 07, 2022 09:56
[2022-10-07] MEDS ORDERED: MEMA5TAB PO ×2 (09:58)
== END 2022-10-07 09:35 | disposition home health service (06) ==
LOC: EDUNIT# 11:20 → ER 11:22 → UNDOADMOB 16:20 → 4TH 16:20 → UNDODISOB 10-07 09:35
PROVIDERS: ADMIT Family Medicine; ATTEND Family Medicine
DX: R41.82 Altered mental status, unspecified (principal); R31.0 Gross hematuria; F01.50 Vascular dementia, unspecified severity, without behavioral disturbance, psychotic disturbance, mood disturbance, and anxiety; I63.9 Cerebral infarction, unspecified; R29.703 NIHSS score 3; I10 Essential (primary) hypertension; I25.10 Atherosclerotic heart disease of native coronary artery without angina pectoris; I67.89 Other cerebrovascular disease; Z79.899 Other long term (current) drug therapy; Z85.51 Personal history of malignant neoplasm of bladder
CPT/HCPCS: 51701; 70450; 70551; 71045; 74177; 80053; 81000; 82947; 84484; 85025; 85610; 85730; 93005; 93041; 93880; 99284; G0378; 36415

== ENCOUNTER 2022-10-09 23:14 | Emergency (ER) | payer MEDICARE, OTHER ==
[~2022-10-09 23:14] MED LIST changes: +CALC-250 PO; +CLOP75TA28 PO; +FLUO40CA PO; +ISOS30TA8 PO; +MEMA5TAB PO; +MV-M1TAB57 PO; +POLY30DR6 OP; +POTA10TA PO
--- NOTE | 2022-10-09 23:32 | ED General ---
General Chief Complaint: Altered Mental Status Stated Complaint: AMS Source of Information: Patient Exam Limitations: No Limitations (AKSHAT ESPINOZA MD) History of Present Illness Date Seen by Provider: Oct 09, 2022 Time Seen by Provider: 23:31 Initial Comments Patient is a 77-year-old female who presents to the emergency department from home chief complaint of aggressive, violent behavior, not acting like herself. Reportedly per EMS has been having a work-up for dementia. On review of the medical record from the hospital here the patient has had chest x-ray CT head w ithout contrast, MRI brain, CT abdomen and pelvis and carotid Dopplers within the last week. All of these studies have been reviewed by me and were essentially unremarkable. The patient also had extensive lab work done with hospitalization for 2 nights on 10-05-2022 all within normal limits except for urinalysis which showed hematuria. Patient reportedly was kicking the dog and breaking things and acting violent at home. Patient care was discussed with Dr. Moctezuma the patient's primary care physician. She states at this point she believes the patient does need psychiatric evaluation as well as neurology eval however does not believe neurology evaluation needs to be done emergently. Would consider psych eval for behavioral placement today. No clinical or objective findings at this time to warrant readmission for medical reasons. Dr. Moctezuma states that the patient was able to converse with her about a week ago regarding gross hematuria and concern for bladder cancer. Patient was very paranoid about having cancer and Dr. Moctezuma believes that this has set off this acute decline in mental status. Timing/Duration: 1 Week, Getting Worse (AKSHAT ESPINOZA MD) Allergies and Home Medications Allergies Coded Allergies: No Known Drug Allergies (Unverified , 02/25/16) Patient Home Medication List Home Medication List Reviewed: Yes (AKSHAT ESPINOZA MD) Atorvastatin Calcium (Atorvastatin Calcium) 10 Mg Tablet, 10 MG PO HS, (Reported) Entered as Reported by: ZENOBIA GEORGES on 01/15/18 1349 Cholecalciferol (Vitamin D3) (Vitamin D3) 125 Mcg (5000 Unit) Tablet, 125 MCG PO DAILY, (Reported) Entered as Reported by: DO NGUYEN on 10/06/22 0840 Fluoxetine HCl (Fluoxetine HCl) 40 Mg Capsule, 40 MG PO DAILY, (Reported) Entered as Reported by: DO NGUYEN on 10/06/22 0840 Isosorbide Dinitrate (Isosorbide Dinitrate) 30 Mg Tablet, 30 MG PO HS, (Reported) Entered as Reported by: DO NGUYEN on 10/06/22 0840 Memantine HCl (Namenda) 5 Mg Tablet, 5 MG PO DAILY Prescribed by: LUIS MOCTEZUMA on 10/07/22 0958 Mv-Mn/Folic Acid/Calcium/Vit K (Women's 50 Plus Multivit Tab) 400 Mcg-500 Mg Calcium-20 Mcg Tablet, 1 EACH PO DAILY, (Reported) Entered as Reported by: DO NGUYEN on 10/06/22 0840 Pantoprazole Sodium (Pantoprazole Sodium) 40 Mg Tablet.dr, 40 MG PO HS, (Repor aye) Entered as Reported by: DO NGUYEN on 10/06/22 0840 Polyethylene Glycol 400 (Visine Dry Eye Relief) 1 % Drops, 1 DROP OP DAILY, (Reported) Entered as Reported by: DO NGUYEN on 10/06/22 0840 Potassium Chloride (K-Tab ER) 10 Meq Tablet.er, 10 MEQ PO DAILY, (Reported) Entered as Reported by: DO NGUYEN on 10/06/22 0840 Discontinued Medications Cholecalciferol (Vitamin D3) (Vitamin D3) 5,000 Unit Capsule, 5,000 UNIT PO DAILY, (Reported) Discontinued Reason: Duplicate Order Entered as Reported by: ZENOBIA GEORGES on 01/15/18 1349 Clopidogrel Bisulfate (Clopidogrel) 75 Mg Tablet, 75 MG PO HS, (Reported) Entered as Reported by: DO NGUYEN on 10/06/22 0840 Fluoxetine HCl (Prozac) 40 Mg Capsule, 40 MG PO DAILY, (Reported) Discontinued Reason: Duplicate Order Entered as Reported by: ZENOBIA GEORGES on 01/15/18 1349 Melatonin/Pyridoxine HCl (B6) (Melatonin 10 mg Tablet) 10 Mg-10 Mg Tab.mphase, 10 MG PO HS, (Reported) Entered as Reported by: ZENOBIA GEORGES on 01/15/18 1349 Ondansetron (Ondansetron Odt) 8 Mg Tab.rapdis, 8 MG PO Q6H PRN for NAUSEA/VOMITING Discontinued Reason: Duplicate Order Prescribed by: POPEYE CASTRO on 10/04/20 1407 Pantoprazole Sodium (Pantoprazole Sodium) 40 Mg Tablet.dr, 40 MG PO DAILY Discontinued Reason: Duplicate Order Prescribed by: REX BECERRA on 03/16/18 1128 Potassium Chloride (Potassium Chloride) 8 Meq Tablet.er, 8 MEQ PO DAILY, (Reported) Discontinued Reason: Duplicate Order Entered as Reported by: ZENOBIA GEORGES on 01/15/18 1349 Tramadol HCl (Tramadol HCl) 50 Mg Tablet, 50 MG PO BID, (Reported) Entered as Reported by: ZENOBIA GEORGES on 01/15/18 1349 Valsartan/Hydrochlorothiazide (Valsartan-Hctz 320-25 mg Tab) 1 Each Tablet, 1 EACH PO DAILY, (Reported) Discontinued Reason: Duplicate Order Entered as Reported by: ZENOBIA GEORGES on 01/15/18 1349 Review of Systems Review of Systems Constitutional: see HPI Unable to have any meaningful conversation with the patient secondary to her mental state. She is quite paranoid, aggressive and belligerent cannot or will not provide HPI review of systems past medical family or social history. (AKSHAT ESPINOZA MD) Past Crpdyiu-Lcqmuk-Jjehnd Hx Seasonal Allergies Seasonal Allergies: No (AKSHAT ESPINOZA MD) Past Medical History Surgery/Hospitalization HX: STENTS X2;HYSTERECTOMY; GASTRIC BYPASS; NECK SURGERY/TITANIUM; Bowel Surgery, Section, Cystectomy, Hysterectomy, Tonsillectomy Respiratory: No Cardiac: Yes Congenital Heart Disease Neurological: No Reproductive Disorders: No Sexually Transmitted Disease: No HIV/AIDS: No Genitourinary: No Gastrointestinal: No Gastroesophageal Reflux Musculoskeletal: No Chronic Back Pain Endocrine: No HEENT: No Loss of Vision: Bilateral Hearing Impairment: Hard of Hearing Cancer: No Psychosocial: No Integumentary: No Blood Disorders: No Adverse Reaction/Blood Tranf: No (AKSHAT ESPINOZA MD) Physical Exam Vital Signs Vital Signs - First Documented 10/10/22 19:20 Temp 36.4 Pulse 70 Resp 20 B/P (MAP) 152/78 (102) Pulse Ox 98 O2 Delivery Room Air (MILDRED MONSIVAIS MD) Vital Signs Capillary Refill : (AKSHAT ESPINOZA MD) Height, Weight, BMI Height: 5'5.00" Weight: 160lbs. 0.0oz. 72.140350ev; 25.37 BMI Method: General Appearance: WD/WN, Severe Distress (Agitated, striking out at staff, intermittently tearful) Eyes: Bilateral Eye Normal Inspection Neck: Normal Inspection Respiratory: Lungs Clear, No Accessory Muscle Use, No Respiratory Distress Cardiovascular: Other (Skin is pink warm and dry) Back: Normal Inspection Extremity: Normal Capillary Refill, Normal Inspection, Normal Range of Motion, No Pedal Edema Neurologic/Psychiatric: Alert, Other (Agitated combative physically aggressive; when left alone, patient is pacing the room, inspecting the vaz and various items in the room) Skin: Normal Color, Warm/Dry (AKSHAT ESPINOZA MD) Progress/Results/Core Measures Suspected Sepsis SIRS Temperature: Pulse: Respiratory Rate: Laboratory Tests 10/10/22 08:15: White Blood Count 9.1 Blood Pressure / Mean: Laboratory Tests 10/10/22 08:15: Creatinine 1.06, Platelet Count 275, Total Bilirubin 0.6 (AKSHAT ESPINOZA MD) Results/Orders Lab Results Laboratory Tests Test 10/10/22 08:15 10/11/22 02:15 Range/Units White Blood Count 9.1 4.3-11.0 10^3/uL Red Blood Count 4.93 3.80-5.11 10^6/uL Hemoglobin 14.4 11.5-16.0 g/dL Hematocrit 43 35-52 % Mean Corpuscular Volume 86 80-99 fL Mean Corpuscular Hemoglobin 29 25-34 pg Mean Corpuscular Hemoglobin Concent 34 32-36 g/dL Red Cell Distribution Width 14.7 H 10.0-14.5 % Platelet Count 275 130-400 10^3/uL Mean Platelet Volume 9.7 9.0-12.2 fL Immature Granulocyte % (Auto) 0 % Neutrophils (%) (Auto) 81 H 42-75 % Lymphocytes (%) (Auto) 10 L 12-44 % Monocytes (%) (Auto) 8 0-12 % Eosinophils (%) (Auto) 0 0-10 % Basophils (%) (Auto) 0 0-10 % Neutrophils # (Auto) 7.3 1.8-7.8 10^3/uL Lymphocytes # (Auto) 0.9 L 1.0-4.0 10^3/uL Monocytes # (Auto) 0.8 0.0-1.0 10^3/uL Eosinophils # (Auto) 0.0 0.0-0.3 10^3/uL Basophils # (Auto) 0.0 0.0-0.1 10^3/uL Immature Granulocyte # (Auto) 0.0 0.0-0.1 10^3/uL Sodium Level 139 135-145 MMOL/L Potassium Level 4.0 3.6-5.0 MMOL/L Chloride Level 104 98-107 MMOL/L Carbon Dioxide Level 24 21-32 MMOL/L Anion Gap 11 5-14 MMOL/L Blood Urea Nitrogen 26 H 7-18 MG/DL Creatinine 1.06 0.60-1.30 MG/DL Estimat Glomerular Filtration Rate 55 BUN/Creatinine Ratio 25 Glucose Level 100 70-105 MG/DL Calcium Level 10.0 8.5-10.1 MG/DL Corrected Calcium 8.5-10.1 MG/DL Total Bilirubin 0.6 0.1-1.0 MG/DL Aspartate Amino Transf (AST/SGOT) 29 5-34 U/L Alanine Aminotransferase (ALT/SGPT) 20 0-55 U/L Alkaline Phosphatase 87 40-136 U/L Total Protein 7.7 6.4-8.2 GM/DL Albumin 4.6 H 3.2-4.5 GM/DL Thyroid Stimulating Hormone (TSH) 1.86 0.35-4.94 UIU/ML Salicylates Level < 5.0 L 5.0-20.0 MG/DL Acetaminophen Level < 10 L 10-30 UG/ML Serum Alcohol < 10 <10 MG/DL SARS-CoV-2 RNA (RT-PCR) Not Detected Not Detecte Urine Color YELLOW Urine Clarity CLEAR Urine pH 6.0 5-9 Urine Specific [place] 1.020 1.016-1.022 Urine Protein NEGATIVE NEGATIVE Urine Glucose (UA) NEGATIVE NEGATIVE Urine Ketones 1+ H NEGATIVE Urine Nitrite NEGATIVE NEGATIVE Urine Bilirubin NEGATIVE NEGATIVE Urine Urobilinogen 0.2 < = 1.0 MG/DL Urine Leukocyte Esterase NEGATIVE NEGATIVE Urine RBC (Auto) 2+ H NEGATIVE Urine RBC 25-50 H /HPF Urine WBC 2-5 /HPF Urine Squamous Epithelial Cells 0-2 /HPF Urine Crystals PRESENT H /LPF Urine Calcium Oxalate Crystals FEW H /LPF Urine Bacteria MODERATE H /HPF Urine Casts PRESENT /LPF Urine Hyaline Casts 2-5 H /LPF Urine Mucus SMALL H /LPF Urine Culture Indicated YES Urine Opiates Screen NEGATIVE NEGATIVE Urine Oxycodone Screen NEGATIVE NEGATIVE Urine Methadone Screen NEGATIVE NEGATIVE Urine Propoxyphene Screen NEGATIVE NEGATIVE Urine Barbiturates Screen NEGATIVE NEGATIVE Ur Tricyclic Antidepressants Screen NEGATIVE NEGATIVE Urine Phencyclidine Screen NEGATIVE NEGATIVE Urine Amphetamines Screen NEGATIVE NEGATIVE Urine Methamphetamines Screen NEGATIVE NEGATIVE Urine Benzodiazepines Screen NEGATIVE NEGATIVE Urine Cocaine Screen NEGATIVE NEGATIVE Urine Cannabinoids Screen NEGATIVE NEGATIVE (MILDRED MONSIVAIS MD) Medications Given in ED Current Medications Medications Dose Ordered Sig/Andres Route Start Time Stop Time Status Last Admin Dose Admin Diphenhydramine HCl 50 mg ONCE ONCE PO 10/10/22 21:45 10/10/22 21:46 DC 10/10/22 22:02 50 MG (MILDRED MONSIVAIS MD) Vital Signs/I&O 10/10/22 10/11/22 19:20 06:20 Temp 36.4 36.0 Pulse 70 66 Resp 20 18 B/P (MAP) 152/78 (102) 169/66 (100) Pulse Ox 98 97 O2 Delivery Room Air Room Air (MILDRED MONSIVAIS MD) Vital Signs/I&O Capillary Refill : (AKSHAT ESPINOZA MD) Progress Note #1: Time: 02:45 Progress Note [facility] mental health screening done. Will recommend involuntary placement. Patient is still quite physically aggressive with staff and security. She is given 2.5 mg Zyprexa. Progress Note #2: Time: 05:04 Progress Note Notified by [facility] just now that they would like updated labs. Patient is finally sitting in a chair in the corner of the room head and hands calm. Her information has been faxed to [facility] (AKSHAT ESPINOZA MD) Progress Note : Progress Note Patient was accepted by Dr. Dean Monreal at [facility] in [place]. Patient will be transported by [facility]. 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 Dean Monreal Transfer Facility: [facility] Method of Transfer: EMS (MILDRED MONSIVAIS MD) Departure-Patient Inst. Referrals: LUIS MOCTEZUMA DO (PCP/Family) Primary Care Physician AKSHAT ESPINOZA MD Oct 09, 2022 23:32 MILDRED MONSIVAIS MD Oct 11, 2022 07:18
[2022-10-10] MEDS ORDERED: OLANZapine 5 MG ODT (ZyPREXA ZYDIS) PO ONE (02:30)
[2022-10-10 08:38] LABS: BASOPHILS % (AUTO) 0 % (0-10); EOSINOPHILS % (AUTO) 0 % (0-10); HEMATOCRIT 43 % (35-52); HEMOGLOBIN 14.4 g/dL (11.5-16.0); LYMPHOCYTES # (AUTO) 0.9 10^3/uL (1.0-4.0); LYMPHOCYTES % (AUTO) 10 % (12-44); MEAN CORPUSCULAR HEMOGLOBIN 29 pg (25-34); MEAN CORPUSCULAR HGB CONC 34 g/dL (32-36); MEAN CORPUSCULAR VOLUME 86 fL (80-99); MEAN PLATELET VOLUME 9.7 fL (9.0-12.2); MONOCYTES # (AUTO) 0.8 10^3/uL (0.0-1.0); MONOCYTES % (AUTO) 8 % (0-12); NEUTROPHILS # (AUTO) 7.3 10^3/uL (1.8-7.8); NEUTROPHILS % (AUTO) 81 % (42-75); PLATELET COUNT 275 10^3/uL (130-400); WHITE BLOOD COUNT 9.1 10^3/uL (4.3-11.0)
[2022-10-10 08:55] LABS: ALBUMIN 4.6 GM/DL (3.2-4.5); CHLORIDE 104 MMOL/L (98-107); SODIUM 139 MMOL/L (135-145)
[2022-10-10 08:58] LABS: GLUCOSE 100 MG/DL (70-105); TOTAL PROTEIN 7.7 GM/DL (6.4-8.2)
[2022-10-10 08:59] LABS: CARBON DIOXIDE 24 MMOL/L (21-32)
[2022-10-10 09:00] LABS: BILIRUBIN,TOTAL 0.6 MG/DL (0.1-1.0)
[2022-10-10 09:02] LABS: ALKALINE PHOSPHATASE 87 U/L (40-136); CREATININE SERUM 1.06 MG/DL (0.60-1.30); GFR ESTIMATED 55
[2022-10-10 09:03] LABS: BUN/CREATININE RATIO 25
[2022-10-10 09:04] LABS: SALICYLATE < 5.0 MG/DL (5.0-20.0)
[2022-10-10 09:05] LABS: ALANINE AMINOTRANSFERASE 20 U/L (0-55)
[2022-10-10 09:06] LABS: ACETAMINOPHEN < 10 UG/ML (10-30)
[2022-10-10] MEDS ORDERED: diphenhydrAMINE 25 MG TAB (BENADRYL) PO ONE (21:45)
[2022-10-11 02:27] LABS: BILIRUBIN,URINE NEGATIVE (NEGATIVE); CLARITY,URINE CLEAR; COLOR,URINE YELLOW; GLUCOSE, URINE (UA) NEGATIVE (NEGATIVE); KETONES,URINE 1+ (NEGATIVE); LEUKOCYTE ESTERASE ,URINE NEGATIVE (NEGATIVE); NITRITE,URINE NEGATIVE (NEGATIVE); PROTEIN,URINE NEGATIVE (NEGATIVE)
[2022-10-11 02:43] LABS: BACTERIA,URINE MODERATE /HPF; RBC,URINE 25-50 /HPF; SQUAMOUS EPITHELIAL CELL,UR 0-2 /HPF
[2022-10-11 02:44] LABS: CALCIUM OXALATE CRYSTALS,UR FEW /LPF
[2022-10-11 02:52] LABS: AMPHETAMINE SCREEN, URINE NEGATIVE (NEGATIVE); BARBITURATE SCREEN URINE NEGATIVE (NEGATIVE); BENZODIAZEPINES SCREEN URINE NEGATIVE (NEGATIVE); CANNABINOID SCREEN, URINE NEGATIVE (NEGATIVE); COCAINE SCREEN URINE NEGATIVE (NEGATIVE); METHADONE STAT NEGATIVE (NEGATIVE); OPIATE SCREEN URINE NEGATIVE (NEGATIVE); OXYCODONE STAT NEGATIVE (NEGATIVE); PROPOXYPHENE STAT NEGATIVE (NEGATIVE); TRICYCLIC ANTIDEPRESSANTS SCRE NEGATIVE (NEGATIVE)
[2022-10-11 10:45] VITALS: BP 132/78
== END 2022-10-11 10:45 ==
LOC: EDUNIT# 23:14 → ER 23:15
DX: F29 Unspecified psychosis not due to a substance or known physiological condition (principal); Z20.822 Contact with and (suspected) exposure to COVID-19
CPT/HCPCS: 36415; 80053; 80306; 80320; 80329; 81000; 84443; 85025; 87088; 87636; 99285

== ENCOUNTER 2022-11-01 11:10 | Emergency (ER) | payer MEDICARE, OTHER ==
[~2022-11-01] VITALS: Ht 160 cm; Wt 70.7 kg
[2022-11-01 15:13] VITALS: BP 114/74
--- NOTE | 2022-11-01 15:30 | Diagnostic Imaging Report ---
EXAMINATION: Chest 1 view HISTORY: CHEST PAIN COMPARISON: 10/05/2022 FINDINGS: Heart size and pulmonary vasculature are normal. The lungs are clear without consolidation, pleural effusion, or pneumothorax. Degenerative changes of the thoracic spine. Osseous structures are otherwise intact. Surgical changes of the cervical spine. IMPRESSION: 1. No acute radiographic abnormality in the chest. Dictated by: Dictated on workstation # [id number]
[2022-11-01 17:29] LABS: BASOPHILS % (AUTO) 1 % (0-10); EOSINOPHILS # (AUTO) 0.1 10^3/uL (0.0-0.3); EOSINOPHILS % (AUTO) 2 % (0-10); HEMATOCRIT 39 % (35-52); HEMOGLOBIN 12.4 g/dL (11.5-16.0); LYMPHOCYTES # (AUTO) 1.9 10^3/uL (1.0-4.0); LYMPHOCYTES % (AUTO) 30 % (12-44); MEAN CORPUSCULAR HEMOGLOBIN 29 pg (25-34); MEAN CORPUSCULAR HGB CONC 32 g/dL (32-36); MEAN CORPUSCULAR VOLUME 90 fL (80-99); MEAN PLATELET VOLUME 9.7 fL (9.0-12.2); MONOCYTES # (AUTO) 0.7 10^3/uL (0.0-1.0); MONOCYTES % (AUTO) 12 % (0-12); NEUTROPHILS # (AUTO) 3.5 10^3/uL (1.8-7.8); NEUTROPHILS % (AUTO) 56 % (42-75); PLATELET COUNT 277 10^3/uL (130-400); WHITE BLOOD COUNT 6.3 10^3/uL (4.3-11.0)
[2022-11-01 17:47] LABS: ALANINE AMINOTRANSFERASE 19 U/L (0-55); ALBUMIN 3.8 GM/DL (3.2-4.5); ALKALINE PHOSPHATASE 85 U/L (40-136); BILIRUBIN,TOTAL 0.4 MG/DL (0.1-1.0); BUN/CREATININE RATIO 19; CALCIUM 8.7 MG/DL (8.5-10.1); CARBON DIOXIDE 25 MMOL/L (21-32); CHLORIDE 108 MMOL/L (98-107); GFR ESTIMATED 90; GLUCOSE 95 MG/DL (70-105); MAGNESIUM 2.1 MG/DL (1.6-2.4); SODIUM 142 MMOL/L (135-145); TOTAL PROTEIN 6.4 GM/DL (6.4-8.2)
--- NOTE | 2022-11-01 21:36 | ED Chest Pain ---
General Chief Complaint: Chest Pain Stated Complaint: CHEST PAINS Nursing Triage Note: PT PRESENTS TO ED VIA EMS FROM HOME WITH COMPLAINTS OF CP SINCE 0900 TODAY. PT REPORTS SHE ALSO HAD SOB, NAUSEA, AND DIAPHORETIC. PT TOOK 3 HOME NITRO AND EMS REPORTS GIVING 324 MG ASA HAND COKE DRAWER. Source: patient Exam Limitations: no limitations History of Present Illness Date Seen by Provider: November 01, 2022 Time Seen by Provider: 11:29 Allergies and Home Medications Allergies Coded Allergies: No Known Drug Allergies (Unverified , 02/25/16) Patient Home Medication List Atorvastatin Calcium (Atorvastatin Calcium) 10 Mg Tablet, 10 MG PO HS, (Reported) Entered as Reported by: ZENOBIA GEORGES on 01/15/18 1349 Cholecalciferol (Vitamin D3) (Vitamin D3) 125 Mcg (5000 Unit) Tablet, 125 MCG PO DAILY, (Reported) Entered as Reported by: DO NGUYEN on 10/06/22 0840 Fluoxetine HCl (Fluoxetine HCl) 40 Mg Capsule, 40 MG PO DAILY, (Reported) Entered as Reported by: DO NGUYEN on 10/06/22 0840 Isosorbide Dinitrate (Isosorbide Dinitrate) 30 Mg Tablet, 30 MG PO HS, (Reported) Entered as Reported by: DO NGUYEN on 10/06/22 0840 Memantine HCl (Namenda) 5 Mg Tablet, 5 MG PO DAILY Prescribed by: LUIS SCHAEFFER on 10/07/22 0958 Mv-Mn/Folic Acid/Calcium/Vit K (Women's 50 Plus Multivit Tab) 400 Mcg-500 Mg Calcium-20 Mcg Tablet, 1 EACH PO DAILY, (Reported) Entered as Reported by: DO NGUYEN on 10/06/22 0840 Pantoprazole Sodium (Pantoprazole Sodium) 40 Mg Tablet.dr, 40 MG PO HS, (Reported) Entered as Reported by: DO NGUYEN on 10/06/22 0840 Polyethylene Glycol 400 (Visine Dry Eye Relief) 1 % Drops, 1 DROP OP DAILY, (Reported) Entered as Reported by: DO NGUYEN on 10/06/22 0840 Potassium Chloride (K-Tab ER) 10 Meq Tablet.er, 10 MEQ PO DAILY, (Reported) Entered as Reported by: DO NGUYEN on 10/06/22 0840 Past Ouohntg-Fnvugi-Wqofob Hx Patient Social History Tobacco Use?: No Substance use?: No Alcohol Use?: No Pt feels they are or have been: No Seasonal Allergies Seasonal Allergies: No Past Medical History Surgery/Hospitalization HX: STENTS X2;HYSTERECTOMY; GASTRIC BYPASS; NECK SURGERY/TITANIUM; Bowel Surgery, Section, Cystectomy, Hysterectomy, Tonsillectomy Respiratory: No Cardiac: Yes Congenital Heart Disease Neurological: No Reproductive Disorders: No Sexually Transmitted Disease: No HIV/AIDS: No Genitourinary: No Gastrointestinal: No Gastroesophageal Reflux Musculoskeletal: No Chronic Back Pain Endocrine: No HEENT: No Loss of Vision: Bilateral Hearing Impairment: Hard of Hearing Cancer: No Psychosocial: No Integumentary: No Blood Disorders: No Adverse Reaction/Blood Tranf: No Physical Exam Vital Signs Vital Signs - First Documented 11/01/22 11:20 Temp 36.9 Pulse 60 Resp 18 B/P (MAP) 172/85 (114) Pulse Ox 98 Capillary Refill : Less Than 3 Seconds Height, Weight, BMI Height: 5'5.00" Weight: 160lbs. 0.0oz. 72.795255hw; 27.00 BMI Method: Progress/Results/Core Measures Results/Orders Lab Results Laboratory Tests Test 11/01/22 11:13 11/01/22 11:32 11/01/22 14:07 Range/Units Sodium Level 142 135-145 MMOL/L Potassium Level 4.0 3.6-5.0 MMOL/L Chloride Level 108 H 98-107 MMOL/L Carbon Dioxide Level 25 21-32 MMOL/L Anion Gap 9 5-14 MMOL/L Blood Urea Nitrogen 13 7-18 MG/DL Creatinine 0.70 0.60-1.30 MG/DL Estimat Glomerular Filtration Rate 90 BUN/Creatinine Ratio 19 Glucose Level 95 70-105 MG/DL Calcium Level 8.7 8.5-10.1 MG/DL Corrected Calcium 8.9 8.5-10.1 MG/DL Magnesium Level 2.1 1.6-2.4 MG/DL Total Bilirubin 0.4 0.1-1.0 MG/DL Aspartate Amino Transf (AST/SGOT) 29 5-34 U/L Alanine Aminotransferase (ALT/SGPT) 19 0-55 U/L Alkaline Phosphatase 85 40-136 U/L Myoglobin 40.3 10.0-92.0 NG/ML Troponin I < 0.028 < 0.028 <0.028 NG/ML B-Type Natriuretic Peptide 84.8 <100.0 PG/ML Total Protein 6.4 6.4-8.2 GM/DL Albumin 3.8 3.2-4.5 GM/DL White Blood Count 6.3 4.3-11.0 10^3/uL Red Blood Count 4.31 3.80-5.11 10^6/uL Hemoglobin 12.4 11.5-16.0 g/dL Hematocrit 39 35-52 % Mean Corpuscular Volume 90 80-99 fL Mean Corpuscular Hemoglobin 29 25-34 pg Mean Corpuscular Hemoglobin Concent 32 32-36 g/dL Red Cell Distribution Width 13.9 10.0-14.5 % Platelet Count 277 130-400 10^3/uL Mean Platelet Volume 9.7 9.0-12.2 fL Immature Granulocyte % (Auto) 1 % Neutrophils (%) (Auto) 56 42-75 % Lymphocytes (%) (Auto) 30 12-44 % Monocytes (%) (Auto) 12 0-12 % Eosinophils (%) (Auto) 2 0-10 % Basophils (%) (Auto) 1 0-10 % Neutrophils # (Auto) 3.5 1.8-7.8 10^3/uL Lymphocytes # (Auto) 1.9 1.0-4.0 10^3/uL Monocytes # (Auto) 0.7 0.0-1.0 10^3/uL Eosinophils # (Auto) 0.1 0.0-0.3 10^3/uL Basophils # (Auto) 0.0 0.0-0.1 10^3/uL Immature Granulocyte # (Auto) 0.0 0.0-0.1 10^3/uL My Orders Orders - GINNY ESPOSITO MD Chest 1 View, Ap/Pa Only (11/01/22 ) Comprehensive Metabolic Panel (11/01/22 11:13) Magnesium (11/01/22 11:13) Myoglobin Serum (11/01/22 11:13) Troponin I Jack[place] (11/01/22 11:13) Bnp [place] (11/01/22 11:13) Troponin I [place] (11/01/22 14:07) Cbc With Automated Diff (11/01/22 11:32) Ekg Tracing (11/01/22 16:47) Vital Signs/I&O 11/01/22 11/01/22 11:20 15:13 Temp 36.9 Pulse 60 66 Resp 18 20 B/P (MAP) 172/85 (114) 114/74 Pulse Ox 98 98 Blood Pressure Mean: 87 Departure Impression Primary Impression: Chest pain Qualified Codes: R07.9 - Chest pain, unspecified Disposition: 01 HOME, SELF-CARE Departure-Patient Inst. Decision time for Depature: 13:50 Referrals: LUIS SCHAEFFER DO (PCP) Primary Care Physician GINNY ESPOSITO MD November 01, 2022 21:36
== END 2022-11-01 15:13 | disposition home or self-care (01) ==
LOC: EDUNIT# 11:52 → ER 11:53
DX: R07.9 Chest pain, unspecified (principal); R06.02 Shortness of breath; R11.0 Nausea; R61 Generalized hyperhidrosis
CPT/HCPCS: 36415; 71045; 80053; 83735; 83874; 83880; 84484; 85025; 93005

== ENCOUNTER 2023-03-01 09:22 | Outpatient (RCR) | payer MEDICARE, OTHER ==
[~2023-03-01 09:22] MED LIST changes: +POTA-185 PO; -POTA10TA PO
== END 2023-03-02 | disposition home or self-care (01) ==
LOC: CR 09:22
PROVIDERS: ATTEND Internal Medicine Critical Care Medicine
DX: Z29.8 Encounter for other specified prophylactic measures (principal); Z95.5 Presence of coronary angioplasty implant and graft
CPT/HCPCS: 93798

== ENCOUNTER 2023-05-01 09:14 | Outpatient (RCR) | payer MEDICARE, OTHER | END 2023-05-02 | disposition home or self-care (01) | LOC: CR 09:14 | PROVIDERS: ATTEND Internal Medicine Critical Care Medicine | DX: Z29.89 Encounter for other specified prophylactic measures (principal); Z95.5 Presence of coronary angioplasty implant and graft | CPT/HCPCS: 93798 ==

== ENCOUNTER 2023-05-10 11:14 | Outpatient (RCR) | payer MEDICARE, OTHER | END 2023-06-01 | disposition home or self-care (01) | LOC: CR 11:14 | PROVIDERS: ATTEND Internal Medicine Critical Care Medicine | DX: Z29.89 Encounter for other specified prophylactic measures (principal); Z95.5 Presence of coronary angioplasty implant and graft | CPT/HCPCS: 93798 ==

== ENCOUNTER → 2023-06-05 | Outpatient (CLI) | payer MEDICARE, OTHER ==
--- NOTE | 2023-06-05 15:21 | Diagnostic Imaging Report ---
EXAMINATION: 3D bilateral screening mammogram with CAD. INDICATION: Screening. COMPARISON: This study was compared to the prior exams of 05/25/2022, 05/24/2021, and 05/21/2020. PERSONAL HISTORY: At this time, there are no current complaints. FINDINGS: There are scattered areas of fibroglandular density. Overall, there does not appear to have been any significant change when compared to the prior exam. There is no primary or secondary sign of malignancy noted. IMPRESSION: There is no radiographic evidence for malignancy. ACR BI-RADS Category 1: Negative. Result letter will be mailed to the patient. Note: At least 10% of breast cancer is not imaged by mammography. Dictated by: Dictated on workstation # [id number]
== END ==
LOC: RAD 08:45
PROVIDERS: ATTEND Family Medicine
DX: Z12.31 Encounter for screening mammogram for malignant neoplasm of breast (principal)
CPT/HCPCS: 77063; 77067